=== PATIENT | male | born 1975 | race Caucasian/White ===

== ENCOUNTER 2017-10-27 11:55 | Emergency (ER) | payer MEDICAID ==
--- NOTE | 2017-10-27 13:44 | EDM.PDOC ---
ED HPI GENERAL MEDICAL PROBLEM - General Chief Complaint: Respiratory Problem Stated Complaint: SINUS INFECTION INTO CHEST Time Seen by Provider: 10/27/17 13:25 Source of Information: Reports: Patient History Limitations: Reports: No Limitations - History of Present Illness INITIAL COMMENTS - FREE TEXT/NARRATIVE: 42-year-old male who has had sinus congestion for the last 3 weeks now has a cough for the past 24 hours. His and daughter had similar symptoms in both "responded to antibiotics". He has no significant fever, no nausea or vomiting. Severity: Mild Associated Symptoms: Reports: Cough. Denies: Fever/Chills Chest Pain Score (Numeric/FACES): 6 - Related Data Allergies Allergy/AdvReac Type Severity Reaction Status Date / Time Sulfa (Sulfonamide Allergy Nausea Verified 01/31/15 19:15 Antibiotics) topiramate [From Topamax] Allergy Blurred Verified 10/27/17 13:09 Vision Home Meds: Home Meds Escitalopram [Lexapro] 20 mg PO DAILY 01/31/15 [History] traZODone 50 mg PO BEDTIME 01/31/15 [History] ALPRAZolam [Xanax] 1 tab PO TID PRN 10/27/17 [History] Amitriptyline [Elavil] 10/27/17 [History] Amitriptyline [Elavil] 1 tab PO DAILY 10/27/17 [History] Diclofenac Sodium [Voltaren] 1 tab PO DAILY 10/27/17 [History] Ferrous Sulfate [Ferrous Sulfate] 1 tab PO DAILY 10/27/17 [History] Lisinopril/Hydrochlorothiazide [Lisinopril-Hctz 20-12.5 mg Tab] 1.5 tab PO DAILY 10/27/17 [History] Methocarbamol [Methocarbamol] 1 tab PO BID 10/27/17 [History] Nabumetone [Relafen] 1 tab PO BID 10/27/17 [History] Simvastatin [Zocor] 1 tab PO DAILY 10/27/17 [History] buPROPion HCl [buPROPion HCl ER] 1 tab PO DAILY 10/27/17 [History] Past Medical History Cardiovascular History: Reports: High Cholesterol, Hypertension Respiratory History: Reports: Sleep Apnea - Past Surgical History GI Surgical History: Reports: Bariatric Procedure Musculoskeletal Surgical History: Reports: Hip Replacement Social & Family History - Tobacco Use Smoking Status *Q: Never Smoker Second Hand Smoke Exposure: No - Alcohol Use Days Per Week of Alcohol Use: 0 - Recreational Drug Use Recreational Drug Use: No ED ROS GENERAL - Review of Systems Review Of Systems: See Below Constitutional: Reports: Malaise. Denies: Fever, Chills HEENT: Reports: Sinus Problem (Persistent nasal congestion for the past 2-3 weeks) Respiratory: Reports: Cough. Denies: Wheezing, Sputum GI/Abdominal: Denies: Abdominal Pain, Nausea, Vomiting Skin: Denies: Rash Neurological: Denies: Headache ED EXAM, GENERAL - Physical Exam Exam: See Below Exam Limited By: No Limitations General Appearance: Alert, No Apparent Distress Ears: Normal TMs Throat/Mouth: Normal Inspection Respiratory/Chest: No Respiratory Distress, Lungs Clear, Other (Patient has a very persistent cough but no abnormal lung sounds) Course - Vital Signs Last Recorded V/S: Last Vital Signs Temp 97.7 F 10/27/17 13:09 Pulse 94 10/27/17 13:09 Resp 18 10/27/17 13:09 BP 158/80 H 10/27/17 13:09 Pulse Ox 97 10/27/17 13:09 - Re-Assessments/Exams Free Text/Narrative Re-Assessment/Exam: 10/27/17 13:42 Tried to convince the patient to continue with conservative therapy, however he was convinced that because his family improved with antibiotics he needs his course of antibiotics. He has had sinus symptoms for 3 weeks which could qualify for a course of antibiotic therapy, but I tried to impress upon the patient that his pulmonary symptoms may have to improve on their own. He will return if worsening. Departure - Departure Time of Disposition: 14:10 Disposition: Home, Self-Care 01 Condition: Good Clinical Impression: Bronchitis Sinusitis, acute Qualifiers: Sinusitis location: maxillary Recurrence: non-recurrent Qualified Code(s): J01.00 - Acute maxillary sinusitis, unspecified - Discharge Information Instructions: Acute Bronchitis, [id number] Referrals: PCP,None [Primary Care Provider] - Forms: ED Department Discharge Care Plan Goals: Take antibiotic as prescribed, rest and fluids are important. Return if worsening or concerns.
== END 2017-10-27 14:10 | disposition home or self-care (01) ==
LOC: JP.ED 11:55
DX: J40 Bronchitis, not specified as acute or chronic (principal); J01.00 Acute maxillary sinusitis, unspecified; E78.00 Pure hypercholesterolemia, unspecified; I10 Essential (primary) hypertension; Z79.899 Other long term (current) drug therapy
CPT/HCPCS: 99283

== ENCOUNTER 2018-02-09 12:23 | Emergency (ER) | payer MEDICAID ==
--- NOTE | 2018-02-09 12:58 | EDM.PDOC ---
ED HPI GENERAL MEDICAL PROBLEM - General Chief Complaint: ENT Problem Stated Complaint: PAIN LT SIDE HEAD Time Seen by Provider: 02/09/18 12:40 Source of Information: Reports: Patient History Limitations: Reports: No Limitations - History of Present Illness INITIAL COMMENTS - FREE TEXT/NARRATIVE: 43 yo male with left ear pain and nasal congestion. No fever or purulent discharge. No cough. Onset Date: 02/07/18 Duration: Day(s):, Constant Location: Reports: Head Quality: Reports: Ache Severity: Mild Improves with: Reports: None Worsens with: Reports: None Context: Reports: Other (unknown) Associated Symptoms: Denies: Cough, Fever/Chills, Rash, Shortness of Breath Treatments CARE ANALYST: Reports: Other (see below) (OTC decongestant) - Related Data Allergies Allergy/AdvReac Type Severity Reaction Status Date / Time Sulfa (Sulfonamide Allergy Nausea Verified 02/09/18 12:31 Antibiotics) topiramate [From Topamax] Allergy Blurred Verified 02/09/18 12:31 Vision Home Meds: Home Meds Escitalopram [Lexapro] 20 mg PO DAILY 01/31/15 [History] Amitriptyline [Elavil] 3 tab PO DAILY 10/27/17 [History] Diclofenac Sodium [Voltaren] 1 tab PO DAILY 10/27/17 [History] Ferrous Sulfate [Ferrous Sulfate] 1 tab PO DAILY 10/27/17 [History] Lisinopril/Hydrochlorothiazide [Lisinopril-Hctz 20-12.5 mg Tab] 1.5 tab PO DAILY 10/27/17 [History] Simvastatin [Zocor] 1 tab PO DAILY 10/27/17 [History] buPROPion HCl [buPROPion HCl ER] 1 tab PO DAILY 10/27/17 [History] Past Medical History Cardiovascular History: Reports: High Cholesterol, Hypertension Respiratory History: Reports: Sleep Apnea - Past Surgical History GI Surgical History: Reports: Bariatric Procedure Musculoskeletal Surgical History: Reports: Hip Replacement Social & Family History - Tobacco Use Smoking Status *Q: Never Smoker Second Hand Smoke Exposure: No - Alcohol Use Days Per Week of Alcohol Use: 0 - Recreational Drug Use Recreational Drug Use: No ED ROS ENT - Review of Systems Review Of Systems: See Below Constitutional: Reports: No Symptoms HEENT: Reports: Ear Pain (left), Other (nasal congestion) Respiratory: Reports: No Symptoms Cardiovascular: Reports: No Symptoms Skin: Reports: No Symptoms Neurological: Reports: No Symptoms ED EXAM, ENT - Physical Exam Exam: See Below Exam Limited By: No Limitations General Appearance: Alert, WD/WN, No Apparent Distress Eye Exam: Bilateral Eye: Normal Inspection Ears: Normal External Exam, Normal Canal, Hearing Grossly Normal, Normal TMs Nose: No Blood, Clear Rhinorrhea, Other (nasal congestion bilat.) Mouth/Throat: Normal Inspection, Normal Lips, Normal Oropharynx Head: Atraumatic, Normocephalic Neck: Normal Inspection, Supple Respiratory/Chest: No Respiratory Distress, Lungs Clear, Normal Breath Sounds Course - Vital Signs Last Recorded V/S: Last Vital Signs Temp 35.7 C 02/09/18 12:37 Pulse 65 02/09/18 12:37 Resp 14 02/09/18 12:37 BP 117/57 L 02/09/18 12:37 Pulse Ox 97 02/09/18 12:37 Departure - Departure Time of Disposition: 12:57 Disposition: Home, Self-Care 01 Condition: Good Clinical Impression: Nasal congestion Allergic rhinitis Qualifiers: Allergic rhinitis trigger: unspecified Allergic rhinitis seasonality: unspecified seasonality Qualified Code(s): J30.9 - Allergic rhinitis, unspecified - Discharge Information Referrals: Carmel Stevens PA [Primary Care Provider] - Forms: ED Department Discharge Additional Instructions: Use Afrin or Neosynephrine per package instructions for 3-4 days. Take cetirizine 10 mg daily. F/U with your doctor later in the week for recheck.
== END 2018-02-09 13:02 | disposition home or self-care (01) ==
LOC: JP.ED 12:23
DX: J30.9 Allergic rhinitis, unspecified (principal); E78.00 Pure hypercholesterolemia, unspecified; I10 Essential (primary) hypertension; Z88.2 Allergy status to sulfonamides; Z88.8 Allergy status to other drugs, medicaments and biological substances
CPT/HCPCS: 99284

== ENCOUNTER 2018-02-27 02:35 | Inpatient (IN) | payer MEDICAID ==
[2018-02-27] MEDS ORDERED: HYDROmorphone 0.5 MG/0.5 ML Syringe IVPUSH ONE (02:43)
[2018-02-27] MEDS ORDERED: Sodium Chloride 0.9% 1,000 ML IV SCH ×2 (02:45→04:15)
--- NOTE | 2018-02-27 02:49 | EDM.PDOC ---
ED HPI GENERAL MEDICAL PROBLEM - General Chief Complaint: Abdominal Pain Stated Complaint: MEDICAL [facility] Time Seen by Provider: 02/27/18 02:45 Source of Information: Reports: Patient History Limitations: Reports: No Limitations - History of Present Illness INITIAL COMMENTS - FREE TEXT/NARRATIVE: pt developed a very sudden onset of severe abdomanal pain. He notes this to be slightly more on the left than the right. He feels like his abdoman is quite distended. Onset: Today Duration: Hour(s):, Getting Worse, Other (pt did have a loose bm about 9 pm. He thinks he is passing gas. ) Location: Reports: Abdomen Associated Symptoms: Reports: Nausea/Vomiting, Weakness Left Abdomen Pain Score (Numeric/FACES): 7 - Related Data Allergies Allergy/AdvReac Type Severity Reaction Status Date / Time Sulfa (Sulfonamide Allergy Nausea Verified 02/09/18 12:31 Antibiotics) topiramate [From Topamax] Allergy Blurred Verified 02/09/18 12:31 Vision Home Meds: Home Meds Escitalopram [Lexapro] 20 mg PO DAILY 01/31/15 [History] Amitriptyline [Elavil] 3 tab PO DAILY 10/27/17 [History] Ferrous Sulfate 325 mg PO DAILY 10/27/17 [History] Lisinopril/Hydrochlorothiazide [Lisinopril-Hctz 20-12.5 mg Tab] 1.5 tab PO DAILY 10/27/17 [History] Simvastatin [Zocor] 20 mg PO DAILY 10/27/17 [History] Cholecalciferol (Vitamin D3) [Vitamin D3] 5,000 unit PO DAILY 02/27/18 [History] Cyanocobalamin (Vitamin B-12) [Vitamin B-12] 50 mcg PO DAILY 02/27/18 [History] Echinacea 400 mg PO DAILY 02/27/18 [History] Fish Oil/DHA/EPA [Fish Oil 1,200 MG] 1 each PO DAILY 02/27/18 [History] Multivitamin [Super Multivitamin] 1 each PO BID 02/27/18 [History] buPROPion HCl [Wellbutrin Xl] 300 mg PO DAILY 02/27/18 [History] Past Medical History Cardiovascular History: Reports: High Cholesterol, Hypertension Respiratory History: Reports: Sleep Apnea - Past Surgical History GI Surgical History: Reports: Bariatric Procedure Musculoskeletal Surgical History: Reports: Hip Replacement Social & Family History - Tobacco Use Smoking Status *Q: Never Smoker Second Hand Smoke Exposure: No - Alcohol Use Days Per Week of Alcohol Use: 0 - Recreational Drug Use Recreational Drug Use: No ED ROS GENERAL - Review of Systems Review Of Systems: See Below Constitutional: Reports: No Symptoms HEENT: Reports: No Symptoms Respiratory: Reports: No Symptoms Cardiovascular: Reports: No Symptoms Endocrine: Reports: No Symptoms GI/Abdominal: Reports: Abdominal Pain, Other (pt had a loose stool about 9 pm. he has vomited multiple times. ) : Reports: No Symptoms Musculoskeletal: Reports: No Symptoms Skin: Reports: No Symptoms Neurological: Reports: No Symptoms ED EXAM, GI/ABD - Physical Exam Exam: See Below Text/Narrative:: p arrived with severe abdomanal pain. His abdoman is very distended feeling. Exam Limited By: No Limitations General Appearance: Severe Distress, Other ( abdoman is very ditended. ) Ears: Normal TMs Nose: Normal Inspection Throat/Mouth: Normal Inspection Head: Atraumatic Neck: Normal Inspection Respiratory/Chest: No Respiratory Distress Cardiovascular: Regular Rate, Rhythm, Other ( ekg does appear normal. ) GI/Abdominal Exam: Distended, Guarding, Other (pt appears very distended accross his mid abdoman. He is very tender to palpate. ) Rectal (Males) Exam: Deferred Back Exam: Normal Inspection Extremities: Normal Inspection Neurological: Alert, Oriented, Normal Cognition Course - Vital Signs Last Recorded V/S: Last Vital Signs Temp 35.8 C 02/27/18 02:38 Pulse 76 02/27/18 02:38 Resp 16 02/27/18 02:38 BP 111/43 L 02/27/18 02:38 Pulse Ox 97 02/27/18 02:38 - Orders/Labs/Meds Orders: Active Orders 24 hr Category Date Time Status EKG Documentation Completion [RC] ASDIRECTED Care 02/27/18 02:41 Active Abdomen Pelvis w Cont [CT] Stat Exams 02/27/18 02:53 Taken UA W/MICROSCOPIC [URIN] Urgent Lab 02/27/18 02:41 Ordered Ondansetron [Zofran] Med 02/27/18 05:44 Once 4 mg IVPUSH ONETIME ONE Sodium Chloride 0.9% [Normal Saline] 1,000 ml Med 02/27/18 02:45 Active IV ASDIRECTED Sodium Chloride 0.9% [Normal Saline] 1,000 ml Med 02/27/18 04:15 Active IV ASDIRECTED EKG 12 Lead [EK] Routine Ther 02/27/18 02:41 Ordered Medication Orders Sodium Chloride (Normal Saline) 1,000 mls @ 999 mls/hr IV ASDIRECTED KAYLEN Last Admin: 02/27/18 03:14 Dose: 999 mls/hr Sodium Chloride (Normal Saline) 1,000 mls @ 500 mls/hr IV ASDIRECTED KAYLEN Last Admin: 02/27/18 04:34 Dose: 500 mls/hr Labs: Laboratory Tests 02/27/18 02/27/18 02/27/18 Range/Units 02:41 02:41 02:52 WBC 13.4 H (4.5-11.0) K/uL RBC 5.01 (4.30-5.90) M/uL Hgb 14.8 (12.0-15.0) g/dL Hct 43.1 (40.0-54.0) % MCV 86 (80-98) fL MCH 30 (27-31) pg MCHC 34 (32-36) % Plt Count 256 (150-400) K/uL Neut % (Auto) 90 H (36-66) % Lymph % (Auto) 5 L (24-44) % [place] % (Auto) 4 (2-6) % Eos % (Auto) 1 L (2-4) % Baso % (Auto) 0 (0-1) % Sodium 137 L (140-148) mmol/L Potassium 3.9 (3.6-5.2) mmol/L Chloride 103 (100-108) mmol/L Carbon Dioxide 22 (21-32) mmol/L Anion Gap 15.9 H (5.0-14.0) mmol/L BUN 24 H (7-18) mg/dL Creatinine 1.2 (0.8-1.3) mg/dL Est Cr Clr Drug Dosing 84.54 mL/min Estimated GFR (MDRD) > 60 (>60) Glucose 145 H (74-106) mg/dL Calcium 8.5 (8.5-10.1) mg/dL Total Bilirubin 0.5 (0.2-1.0) mg/dL AST 25 (15-37) U/L ALT 43 (12-78) U/L Alkaline Phosphatase 233 H (46-116) U/L C-Reactive Protein 1.25 H (0.0-0.3) mg/dL Total Protein 6.8 (6.4-8.2) g/dL Albumin 3.8 (3.4-5.0) g/dL Globulin 3.0 (2.3-3.5) g/dL Albumin/Globulin Ratio 1.3 (1.2-2.2) Urine Color Yellow Urine Appearance Clear Urine pH 5.0 (4.5-8.0) Ur Specific [place] 1.020 (1.008-1.030) Urine Protein Negative (NEGATIVE) mg/dL Urine Glucose (UA) Normal (NEGATIVE) mg/dL Urine Ketones Negative (NEGATIVE) mg/dL Urine Occult Blood Negative (NEGATIVE) Urine Nitrite Negative (NEGAITVE) Urine Bilirubin Negative (NEGATIVE) Urine Urobilinogen Normal (NORMAL) mg/dL Ur Leukocyte Esterase Negative (NEGATIVE) Urine RBC 0-5 (0-5) Urine WBC 0-5 (0-5) Ur Epithelial Cells Few Amorphous Sediment Few Urine Bacteria Few Urine Mucus Not seen Meds: Medications Generic Name Dose Route Start Last Admin Trade Name Freq PRN Reason Stop Dose Admin Sodium Chloride 1,000 mls @ 999 mls/hr 02/27/18 02:45 02/27/18 03:14 Normal Saline IV 999 mls/hr ASDIRECTED KAYLEN Administration Sodium Chloride 1,000 mls @ 500 mls/hr 02/27/18 04:15 02/27/18 04:34 Normal Saline IV 500 mls/hr ASDIRECTED KAYLEN Administration Discontinued Medications Generic Name Dose Route Start Last Admin Trade Name Freq PRN Reason Stop Dose Admin Hydromorphone HCl 0.5 mg 02/27/18 02:43 02/27/18 03:12 Dilaudid IVPUSH 02/27/18 02:44 0.5 mg ONETIME ONE Administration Sodium Chloride 85 mls @ 4 mls/sec 02/27/18 03:13 02/27/18 03:25 Normal Saline IV 02/27/18 03:14 4 mls/sec ASDIRECTED STA Administration Iopamidol 150 ml 02/27/18 03:13 02/27/18 03:25 Isovue-300 (61%) IV 02/27/18 03:14 150 ml . DIRECTED STA Administration - Re-Assessments/Exams Free Text/Narrative Re-Assessment/Exam: 02/27/18 05:50 pt has a wbc of 13,00. His crp is elevated at 1.25. He had a cat scan of the abdoman which showed a high grade mechanical obstruction with incarcerated bowel . Departure - Departure Time of Disposition: 05:52 Disposition: Admitted As Inpatient 66 Condition: Fair Clinical Impression: Mechanical obstruction of the intestine, H/O gastric bypass - Discharge Information Referrals: PCP,None [Primary Care Provider] - Forms: ED Department Discharge Care Plan Goals: admit to Dr Ruiz. - My Orders Last 24 Hours: My Active Orders 02/27/18 02:41 EKG Documentation Completion [RC] ASDIRECTED UA W/MICROSCOPIC [URIN] Urgent EKG 12 Lead [EK] Routine 02/27/18 02:45 Sodium Chloride 0.9% [Normal Saline] 1,000 ml IV ASDIRECTED 02/27/18 02:53 Abdomen Pelvis w Cont [CT] Stat 02/27/18 04:15 Sodium Chloride 0.9% [Normal Saline] 1,000 ml IV ASDIRECTED 02/27/18 05:44 Ondansetron [Zofran] 4 mg IVPUSH ONETIME ONE - Assessment/Plan Last 24 Hours: My Active Orders 02/27/18 02:41 EKG Documentation Completion [RC] ASDIRECTED UA W/MICROSCOPIC [URIN] Urgent EKG 12 Lead [EK] Routine 02/27/18 02:45 Sodium Chloride 0.9% [Normal Saline] 1,000 ml IV ASDIRECTED 02/27/18 02:53 Abdomen Pelvis w Cont [CT] Stat 02/27/18 04:15 Sodium Chloride 0.9% [Normal Saline] 1,000 ml IV ASDIRECTED 02/27/18 05:44 Ondansetron [Zofran] 4 mg IVPUSH ONETIME ONE
[2018-02-27] MEDS ORDERED: Iopamidol 612 MG/ML 150 ML Bottle IV STA (03:13)
[2018-02-27] MEDS ORDERED: Ondansetron 4 MG/2 ML SDV IVPUSH ONE (05:44)
[2018-02-27] MEDS ORDERED: Dextrose 5%-Lactated Ringers 1,000 ML IV SCH (07:15)
[2018-02-27] MEDS ORDERED: HYDROmorphone 1 MG/ML Syringe IVPUSH ONE (07:22)
[2018-02-27] MEDS ORDERED: Naloxone 0.4 MG/ML SDV IV PRN (07:35)
[2018-02-27] MEDS ORDERED: HYDROmorphone/Normal Saline 15 MG/30 ML PCA IV PRN ×2 (07:35→18:40)
[2018-02-27] MEDS ORDERED: Glycopyrrolate 0.2 MG/ML 5 ML MDV ONE (07:38)
[2018-02-27] MEDS ORDERED: Ondansetron 4 MG/2 ML SDV ONE (07:38)
[2018-02-27] MEDS ORDERED: Propofol 200 MG/20 ML SDV ONE (07:38)
[2018-02-27] MEDS ORDERED: Succinylcholine 200 MG/10 ML MDV ONE (07:38)
[2018-02-27] MEDS ORDERED: Rocuronium 50 MG/5 ML Vial ONE (07:38)
[2018-02-27] MEDS ORDERED: Neostigmine Methylsulfate 1 MG/ML 5 ML Syringe ONE (07:38)
[2018-02-27] MEDS ORDERED: Dexamethasone 4 MG/ML SDV ONE (07:38)
[2018-02-27] MEDS ORDERED: Meropenem 500 MG SDV ONE (09:00)
[2018-02-27] MEDS ORDERED: Ketamine 500 MG/5 ML MDV IV ONE (09:30)
[2018-02-27] MEDS ORDERED: cefOXitin 2 GM in Sodium Chloride 0.9% 50 ML IV ONE (09:30)
[2018-02-27] MEDS ORDERED: Ropivacaine 60 ML, Dexamethasone 8 MG, EPINEPHrine 0.4 MG, Sodium Chloride 0.9% 17.6 ML NERVRT ONE ×4 (09:30)
[2018-02-27] MEDS ORDERED: Lidocaine 2% 100 MG/5 ML Syringe IVPUSH ONE (09:30)
--- NOTE | 2018-02-27 11:14 | CR ---
Low lung volumes. Heart size upper limits of normal. Mild interstitial thickening may relate to low l nicholas volumes only. Correlate for mild pulmonary vascular congestion slight haziness left lung base med ially may represent atelectasis. If symptoms persist recommend 2 view follow-up.
[2018-02-27] MEDS: Lidocaine 0.4%/D5W 2 GM/500 ML BAG IV SCH (13:55)
[2018-02-27] MEDS: Dextrose 5%-Lactated Ringers 1,000 ML IV SCH ×2 (13:56→23:27)
[2018-02-27] MEDS ORDERED: diphenhydrAMINE 50 MG/ML SDV IVPUSH PRN (14:00)
[2018-02-27] MEDS ORDERED: Labetalol 20 MG/4 ML Syringe IVPUSH PRN (14:00)
[2018-02-27] MEDS ORDERED: Scopolamine 1.5 MG Transdermal Patch TOP SCH (14:00)
[2018-02-27] MEDS ORDERED: Metoclopramide 10 MG/2 ML SDV IVPUSH PRN (14:00)
[2018-02-27] MEDS: Gabapentin 300 MG Cap PO SCH ×2 (14:00→20:12)
[2018-02-27] MEDS ORDERED: hydrOXYzine HCl 100 MG/2 ML SDV IM PRN (14:00)
[2018-02-27] MEDS ORDERED: Ondansetron 4 MG/2 ML SDV IVPUSH PRN (14:00)
[2018-02-27] MEDS: Celecoxib 200 MG Cap PO SCH (14:00)
[2018-02-27] MEDS: cefOXitin 2 GM in Sodium Chloride 0.9% 50 ML IV SCH ×2 (15:05→20:11)
[2018-02-27] MEDS: Acetaminophen Soln 650 MG/20.3 ML UD Cup PO SCH ×2 (17:07→23:27)
[2018-02-27] MEDS: Pantoprazole 40 MG Vial IVPUSH SCH (17:07)
[2018-02-27] MEDS: Heparin Sodium 5,000 Units/ML Vial SUBCUT SCH (17:08)
[2018-02-27] MEDS: MVI, Adult with Vitamin K 10 ML, Thiamine 100 MG, Chromium/Copper/Mang/Selen/Zn 1 ML in... IV SCH ×4 (17:09)
[2018-02-27] MEDS ORDERED: Naloxone 0.4 MG/ML SDV IVPUSH PRN (18:40)
[2018-02-27] MEDS: Tamsulosin 0.4 MG Cap.ER PO SCH (20:12)
[2018-02-27] MEDS: AMITRIPTYLINE PO SCH ×2 (20:13)
[2018-02-28] MEDS: Lidocaine 0.4%/D5W 2 GM/500 ML BAG IV SCH (02:45)
[2018-02-28] MEDS: cefOXitin 2 GM in Sodium Chloride 0.9% 50 ML IV SCH ×4 (02:45→20:12)
[2018-02-28] MEDS ORDERED: Iohexol 647 MG/ML 50 ML SDV PO STA (03:48)
[2018-02-28] MEDS: Acetaminophen Soln 650 MG/20.3 ML UD Cup PO SCH ×4 (04:25→21:29)
[2018-02-28] MEDS: Dextrose 5%-Lactated Ringers 1,000 ML IV SCH (05:23)
[2018-02-28] MEDS: Heparin Sodium 5,000 Units/ML Vial SUBCUT SCH ×2 (05:29→17:29)
[2018-02-28] MEDS: Celecoxib 200 MG Cap PO SCH (07:31)
[2018-02-28] MEDS ORDERED: Ondansetron 4 MG Tab.DIS PO PRN (07:32)
[2018-02-28] MEDS ORDERED: Dextrose 5%-Lactated Ringers 1,000 ML IV SCH (07:32)
[2018-02-28] MEDS: Gabapentin 300 MG Cap PO SCH ×3 (08:40→20:12)
[2018-02-28] MEDS: buPROPion 150 MG Tab.ER PO SCH (08:40)
[2018-02-28] MEDS: Escitalopram 20 MG Tab PO SCH (08:41)
[2018-02-28] MEDS: Hydrochlorothiazide 25 MG Tab PO SCH (08:41)
[2018-02-28] MEDS: SCOPOLAMINE PATCH CHECK TOP SCH (08:42)
--- NOTE | 2018-02-28 11:21 | PN ---
DATE OF SERVICE: 02/28/2018 SUBJECTIVE: Manish is postop day 1. Upper GI this morning was normal. He did have an increased amount of pain, and after the [employer] ROOM was hooked up, he felt much better, been up ambulating. Armstrong catheter was discontinued at 4:30 a.m. Oral intake was 2086, output 1925. APRIL drain put out 0. REVIEW OF SYSTEMS: Remainder of review of systems negative for any pertinent positives and negatives. OBJECTIVE: GENERAL: Manish Jamil is a 43-year-old male. He is alert and orientated, lying in bed. VITAL SIGNS: TPR is 96.7, 69, 16. Blood pressure 147/64. HEENT: Negative. NECK: Supple. HEART: Regular rate and rhythm. LUNGS: Clear. ABDOMEN: Dressings dry and intact. APRIL drain intact. EXTREMITIES: SCDs are on, and there is no peripheral edema. ASSESSMENT: Exploratory laparotomy with small bowel resection, tube decompression of the small bowel, repair of incarcerated umbilical hernia, incarcerated recurrent incisional hernia, and excision of abdominal wall lipoma 1 cm for small bowel obstruction associated with incarcerated umbilical hernia, and a segment of the small bowel with hernia, marked distention of the proximal small bowel, incarcerated recurrent incisional hernia, and abdominal wall lipoma. Date of surgery 02/27/2018. Surgeon, Betito Ruiz MD. PLAN: On dressing off, may shower, step-2 without cereal gastric bypass diet. Discontinue [employer] RO[employer] and continuous pulse ox. Dilaudid 2 mg 1 to 2 every 4 hours p.r.n. pain, Zofran ODT 4 mg every 4 hours p.r.n. nausea, saline lock IV if oral intake adequate after turning down D5LR to 100 mL per hour. Good pulmonary toilet. We will evaluate p.r.n. or in a.m. Estela Perez PA-C /[id number]
--- NOTE | 2018-02-28 11:22 | CR ---
Limited upper GI. Contrast within small bowel loops. No dilatation. No gross evidence for contrast le akage.
[2018-02-28] MEDS: HYDROmorphone 2 MG Tab PO PRN ×2 (13:13→20:08)
[2018-02-28] MEDS: Pantoprazole 40 MG Vial IVPUSH SCH (15:27)
[2018-02-28] MEDS: MVI, Adult with Vitamin K 10 ML, Thiamine 100 MG, Chromium/Copper/Mang/Selen/Zn 1 ML in... IV SCH ×4 (15:33)
[2018-02-28] MEDS: Tamsulosin 0.4 MG Cap.ER PO SCH (20:12)
[2018-02-28] MEDS: AMITRIPTYLINE PO SCH ×2 (20:12)
[2018-03-01] MEDS: cefOXitin 2 GM in Sodium Chloride 0.9% 50 ML IV SCH ×2 (02:30→08:42)
[2018-03-01] MEDS: Acetaminophen Soln 650 MG/20.3 ML UD Cup PO SCH ×4 (03:10→21:17)
[2018-03-01] MEDS: Heparin Sodium 5,000 Units/ML Vial SUBCUT SCH ×2 (05:24→17:23)
[2018-03-01] MEDS: Celecoxib 200 MG Cap PO SCH (08:32)
[2018-03-01] MEDS: Hydrochlorothiazide 25 MG Tab PO SCH (08:32)
[2018-03-01] MEDS: Gabapentin 300 MG Cap PO SCH ×3 (08:33→21:17)
[2018-03-01] MEDS: Escitalopram 20 MG Tab PO SCH (08:33)
[2018-03-01] MEDS: SCOPOLAMINE PATCH CHECK TOP SCH (08:34)
[2018-03-01] MEDS: buPROPion 150 MG Tab.ER PO SCH (08:35)
[2018-03-01] MEDS: HYDROmorphone 2 MG Tab PO PRN ×2 (08:36→17:23)
[2018-03-01] MEDS ORDERED: Cyanocobalamin (Vitamin B12) 1,000 MCG/ML SDV IM ONE (09:00)
[2018-03-01] MEDS ORDERED: Magnesium Hydroxide 400 MG/5 ML Susp 30 ML Cup PO ONE (09:00)
[2018-03-01] MEDS ORDERED: Bisacodyl 5 MG Tab PO ONE (10:00)
--- NOTE | 2018-03-01 10:07 | PN ---
DATE OF SERVICE: 03/01/2018 SUBJECTIVE: Manish is postop day #2. He has not had a bowel movement. Pain has been managed. He is taking Dilaudid for breakthrough pain. REVIEW OF SYSTEMS: Remainder of review of systems negative for any pertinent positives or negatives. Temp max of 100.4. OBJECTIVE: GENERAL: Manish Jamil is a pleasant 43-year-old male. VITAL SIGNS: TPR is 100.4, rechecked at 98.9; pulse 88; respirations 18. Blood pressure 108/56. HEENT: Negative. NECK: Supple. HEART: Regular rate and rhythm. LUNGS: Clear. ABDOMEN: Incision looks good. He has a midline APRIL round drain in, which put out 5 mL. He has been eating 100% of a step-2 with no cereal gastric bypass diet. EXTREMITIES: Without peripheral edema. ASSESSMENT: Exploratory laparotomy with small bowel resection, tube decompression of the small bowel, repair of incarcerated umbilical hernia, incarcerated recurrent incisional hernia, and excision of abdominal wall lipoma 1 cm, for small bowel obstruction associated with incarcerated umbilical hernia and a segment of the small bowel with hernia, marked distention of the proximal small bowel, incarcerated recurrent incisional hernia, and abdominal wall lipoma. Date of surgery 02/27/2018. Surgeon, Betito Ruiz M.D. PLAN: 1. Milk of magnesia 30 mL, one time now, followed by Dulcolax 2 tabs 1 hour after milk of magnesia. 2. Discontinue IV Protonix and Protonix 40 mg p.o. daily. 3. Good pulmonary toilet. 4. We will evaluate p.r.n. or in the a.m. 5. Plan discharge in the a.m. Estela Perez PA-C /[id number]
[2018-03-01] MEDS ORDERED: Pantoprazole 40 MG Tab.CR PO SCH (21:00)
[2018-03-01] MEDS: Tamsulosin 0.4 MG Cap.ER PO SCH (21:17)
[2018-03-01] MEDS: AMITRIPTYLINE PO SCH ×2 (21:17)
[2018-03-02] MEDS: Heparin Sodium 5,000 Units/ML Vial SUBCUT SCH (05:23)
[2018-03-02] MEDS: Acetaminophen Soln 650 MG/20.3 ML UD Cup PO SCH ×2 (05:23→09:38)
[2018-03-02] MEDS: HYDROmorphone 2 MG Tab PO PRN ×2 (05:27→11:46)
[2018-03-02] MEDS: Celecoxib 200 MG Cap PO SCH (07:52)
--- NOTE | 2018-03-02 09:12 | DISCH ---
ADMISSION DIAGNOSES: 1. Incarcerated umbilical hernia. 2. Status post Aly-en-Y gastric bypass surgery. 3. Unspecified surgical malabsorption. 4. B12 deficiency. 5. Reactive hypoglycemia secondary to Aly-en-Y gastric bypass surgery. 6. Depression. 7. Hypertension. 8. Morbid obesity, BMI 39.2. 9. Thoracic degenerative joint disease. 10.Venous insufficiency. DISCHARGE DIAGNOSES: Exploratory laparotomy with small bowel resection, tube decompression of the small bowel, repair of incarcerated umbilical hernia, incarcerated recurrent incisional hernia, and excision of abdominal wall lipoma 1 cm, for a small bowel obstruction associated with incarcerated umbilical hernia and a segment of the small bowel with hernia, marked distention of the proximal small bowel, incarcerated recurrent incisional hernia and abdominal wall lipoma. Date of surgery 02/27/2018. Surgeon, Betito Ruiz M.D. HISTORY: Manish Jamil is a 43-year-old male, who presented to the emergency room for severe abdominal pain. After preoperative evaluation, discussion of possible risks and possible complications, he wished to proceed with surgical procedure. HOSPITAL COURSE: Manish had his surgery on 02/27/2018. He had no operative complications. On postop day #1, he was started on a step-2 gastric bypass diet and received dietary instruction. On postop day #2, he was given bowel stimulation, and on postop day #3, he was able to be discharged to home without any complications. His activity was good, vital signs were stable, oral intake was adequate, and he received adequate nutritional instructions. PHYSICAL EXAMINATION: GENERAL: Manish Jamil is a 43-year-old male. Height is 5 feet 10.8 inches, BMI 39.2. VITAL SIGNS: 98.5, 81, 16. Blood pressure 106/58. O2 by pulse oximetry is 91%. HEENT: Negative. NECK: Supple. HEART: Regular rate and rhythm. LUNGS: Clear. ABDOMEN: Violet intact. He has a midline APRIL drain, which has been draining scant amounts. EXTREMITIES: Without peripheral edema. DISPOSITION: Discharged to home. CONDITION: Stable and improving. FOLLOWUP: Follow up with Estela Perez PA-C, on 03/11/2018, at 9:00 a.m. DISCHARGE MEDICATIONS: New home medications: Acetaminophen 650 mg every 6 hours, liquid 1200 mL; Dilaudid 2 to 4 mg q.4 hours p.r.n. pain, #40; Zofran 4 mg p.o. q.4 hours p.r.n. nausea and vomiting, #30; Celebrex 200 mg p.o. daily, #14; and Protonix 40 mg p.o. at bedtime, to take for 14 days as long as he is on the Celebrex. Home medications: Resume Elavil, Lexapro, bupropion, Zocor, lisinopril, and hydrochlorothiazide. He will resume vitamins and supplements after 1st postop appointment. DISCHARGE INSTRUCTIONS: 1. Diet after discharge: Step-2 gastric bypass diet without cereal. Drink 8 to 10 glasses of water a day. 2. Activity: No lifting greater than 10 pounds for 6 weeks. 3. Driving: Do not drive while on pain medication. 4. May shower. 5. Wear abdominal binder with pressure dressing over hernia site for 6 to 8 weeks or longer as tolerated. 6. Wound incision care: Keep operative site clean and dry. 7. Strip, empty, measure, and record APRIL drain 4 times a day. 8. Notify provider if any fever, increased pain, nausea or vomiting. SPECIAL INSTRUCTIONS: Use incentive spirometer 10 times every hour for 1 week. Check blood sugars in the morning before breakfast and when needed, and keep a food journal and bring to clinic appointments along with blood sugar results.
[2018-03-02] MEDS: Gabapentin 300 MG Cap PO SCH (09:33)
[2018-03-02] MEDS: Hydrochlorothiazide 25 MG Tab PO SCH (09:33)
[2018-03-02] MEDS: buPROPion 150 MG Tab.ER PO SCH (09:34)
[2018-03-02] MEDS: Escitalopram 20 MG Tab PO SCH (09:34)
--- NOTE | 2018-03-05 14:58 | OR ---
DATE OF PROCEDURE: 02/27/2018 PREOPERATIVE DIAGNOSIS: Small bowel obstruction. POSTOPERATIVE DIAGNOSES: 1. Small bowel obstruction with fixed stricture at a point of the Aly limb entering jejunojejunostomy. 2. Marked dilation of proximal small bowel. 3. Incarcerated umbilical hernia. 4. Incarcerated recurrent incisional hernia. 5. Extensive intra-abdominal adhesions. OPERATIVE PROCEDURES: Exploratory laparotomy with lysis of extensive adhesions and: 1. Small bowel resection (11928). 2. Enterotomy for tube decompression of proximal small bowel (17127). 3. Repair of incarcerated umbilical hernia (50980). 4. Repair of incarcerated recurrent incisional hernia (11526). 5. Placement of Interceed mesh to displace pelvic and abdominal wall from underlying viscera to limit recurrent adhesion formation (65700). ANESTHESIA: General. ASSISTANTS: Estela Perez PA-C, and ANALIA Sorto. INDICATION FOR PROCEDURE: This 43-year-old is status post Aly-en-Y gastric bypass, presenting with an acute small bowel obstruction. There is marked distention of the biliopancreatic limb, and NG tube was placed preoperatively. Given the degree of distention of the bowel, an open approach would be used. Potential risks of the procedure including bleeding, infection, injury to underlying viscera, possible leaks from various GI tract closures, recurrence of the problems, as well as the possibility of cardiopulmonary, septic, or hemorrhagic complications leading to were discussed, and the patient wishes to proceed. DETAILS OF PROCEDURE: The patient was taken to the operating room and after general endotracheal anesthesia was induced, a Armstrong catheter was inserted. Transversus abdominis plane blocks affecting the upper halves of the abdomen was then placed bilaterally with standard solution under continuous ultrasound guidance. Following this, with the abdomen prepped and draped, a midline incision which extended eventually from just below the xiphoid to the umbilicus, was made and carried down through full thickness abdominal wall. Upon entering the peritoneal cavity, the markedly distended Aly limb was identified. This was dissected up out to the point where it was incarcerated with the umbilicus. A portion of the previously-placed mesh was divided. As the small bowel was reduced from the umbilicus, which was the point of the obstruction, it was noted to have marked edema and stricturing more or less fixed at the point where the small bowel entered the jejunojejunostomy and it was felt this will most likely need to be resected. As one dissected superiorly through the abdominal wall, the patient was also noted to have an incarcerated incisional hernia, this being an old trocar hernia containing preperitoneal fat. This tissue was excised and sent as a separate specimen. To protect the mesh, then meropenem-containing gauze was placed along the edges of the mesh and, at that point, a small enterotomy was made, dividing the distal end of the Aly limb, and a [place] sump tube placed. Large amount of air and fluid was removed from that area, thus decompressing the otherwise markedly distended small bowel and nasogastric tube having been in place. Once this was completed, this opening was then used for subsequent anastomosis. As discussed with the patient preoperatively, due to his somewhat inadequate weight loss, if we needed to resect the small bowel, we will plan to reconstruct the new anastomosis, creating a shorter common limb and a longer biliopancreatic limb, which should help with weight loss as well as metabolic problems in general. The potential risks of that, in the event that we perform this, being more frequent loose bowel movements as well as possible problems with malnutrition requiring some additional vigilance perioperatively, and the small chance of needing a secondary reoperation were all gone over, and the patient wished to proceed. Given this, the Aly limb, at this point, was marked out being at 170 cm. Given this, the ileocecal valve was identified and the small bowel was then marked back 150 cm. At that point, the [id number] enteroenterostomy was accomplished with an internal firing of the Endo-TERRANCE stapler, and the common opening was then closed transversely with the same stapler, angles anastomosed, and mesenteric defect approximated with some 3-0 Vicryl stitch and that area also then reinforced with some fibrin sealant. At this point, no further problems were noted. The hernia sac within the umbilicus was then dissected free from within and some Interceed mesh was then placed across the pelvic and abdominal wall underlying the incision and into the lower abdomen where adhesions had been encountered at the initial exploration. The umbilical hernia was then approximated from within using #2 Vicryl stitch. This stitch was then continued and through the main fascial layer including repair of the incarcerated incisional hernia site. Once the fascial closure was accomplished, a 10-Sinhala round Yury-Alonzo drain was placed through a stab wound inferior to the main incision, and the incision was then closed with 2 layers of 3-0 and 4-0 Vicryl stitch deep and jeannie for the skin. The drain was fixed with 4-0 Vicryl stitch as well. The patient was taken to the recovery room in a satisfactory condition. There were no evident complications. Physician escrow assistant, Estela Perez, played an essential role in assisting in this case, helping to position the patient, retract structures as needed, as well as suturing and stapling when indicated. Her presence improved the patient's safety and decreased the operative time. Betito Ruiz MD /[id number]
== END 2018-03-02 12:50 | disposition home or self-care (01) | DRG 330 ==
LOC: JP.ED 02:35 → JP.SDS 06:00 → JP.2SS 12:15
PROVIDERS: ADMIT Surgery; ATTEND Surgery
PROC: 0DBA0ZX Excision of Jejunum, Open Approach, Diagnostic (ICD-10-PCS; principal; 2018-02-27)
PROC: 0D190ZA Bypass Duodenum to Jejunum, Open Approach (ICD-10-PCS; 2018-02-27)
PROC: 0WBF0ZZ Excision of Abdominal Wall, Open Approach (ICD-10-PCS; 2018-02-27)
PROC: 0D988ZZ Drainage of Small Intestine, Via Natural or Artificial Opening Endoscopic (ICD-10-PCS; 2018-02-27)
PROC: 3E0T3BZ Introduction of Anesthetic Agent into Peripheral Nerves and Plexi, Percutaneous Approach (ICD-10-PCS; 2018-02-27)
DX: K56.699 Other intestinal obstruction unspecified as to partial versus complete obstruction (principal); K42.0 Umbilical hernia with obstruction, without gangrene; K90.9 Intestinal malabsorption, unspecified; K42.9 Umbilical hernia without obstruction or gangrene; K43.2 Incisional hernia without obstruction or gangrene; D17.1 Benign lipomatous neoplasm of skin and subcutaneous tissue of trunk; E78.00 Pure hypercholesterolemia, unspecified; I10 Essential (primary) hypertension; E53.8 Deficiency of other specified B group vitamins; E16.1 Other hypoglycemia; F32.9 Major depressive disorder, single episode, unspecified; E66.01 Morbid (severe) obesity due to excess calories; Z68.39 Body mass index [BMI] 39.0-39.9, adult; M47.9 Spondylosis, unspecified; I87.2 Venous insufficiency (chronic) (peripheral); Z88.8 Allergy status to other drugs, medicaments and biological substances; Z79.899 Other long term (current) drug therapy; Z98.84 Bariatric surgery status
CPT/HCPCS: 36415; 71045; 71045-26; 74177; 74240; 74240-26; 80053; 81001; 85025; 86140; 88302; 88304; 88307; 93005; 94762; 96361; 96365; 96375; 99285-25; A9270-GY; C9113; J0171; J0330; J0694; J1100; J1170; J1644; J2001; J2185; J2405; J2704; J2710; J2795; J3010; J3411; J3420; J7030; J7040; J7042; J7050; Q9967

== ENCOUNTER 2018-12-26 19:38 | Inpatient (IN) | payer SELFPAY ==
[2018-12-26] MEDS ORDERED: Albuterol/Ipratropium 3.0-0.5 MG/3 ML Neb Soln NEB ONE (21:19)
--- NOTE | 2018-12-26 21:23 | EDM.PDOC ---
ED HPI GENERAL MEDICAL PROBLEM - General Chief Complaint: Respiratory Problem Stated Complaint: ILLNESS Time Seen by Provider: 12/26/18 21:14 Source of Information: Reports: Patient, RN Notes Reviewed History Limitations: Reports: No Limitations - History of Present Illness INITIAL COMMENTS - FREE TEXT/NARRATIVE: 43-year-old gentleman presents emergency department today with complaint of shortness of breath and cough, he states is been ill for about a week and half however today he developed a fever today no nausea vomiting no chest pain he does have back pain secondary to coughing, is no sputum production dry hacking cough no problems with bowel movements 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 Pain Score (Numeric/FACES): 7 - Related Data Allergies Allergy/AdvReac Type Severity Reaction Status Date / Time Sulfa (Sulfonamide Allergy Nausea Verified 12/26/18 20:33 Antibiotics) topiramate [From Topamax] AdvReac Blurred Verified 12/26/18 20:33 Vision Home Meds: Home Meds Escitalopram [Lexapro] 20 mg PO DAILY 01/31/15 [History] Amitriptyline [Elavil] 75 mg PO BEDTIME 10/27/17 [History] Ferrous Sulfate 325 mg PO BID 10/27/17 [History] Lisinopril/Hydrochlorothiazide [Lisinopril-Hctz 20-12.5 mg Tab] 1.5 tab PO DAILY 10/27/17 [History] Simvastatin [Zocor] 20 mg PO BEDTIME 10/27/17 [History] Fish Oil/DHA/EPA [Fish Oil 1,200 MG] 1 each PO DAILY 02/27/18 [History] buPROPion HCl [Wellbutrin Xl] 300 mg PO DAILY 02/27/18 [History] Acetaminophen [Tylenol] 650 mg PO Q6H PRN 12/26/18 [History] Past Medical History HEENT History: Reports: Impaired Vision, Otitis Media Cardiovascular History: Reports: High Cholesterol, Hypertension Respiratory History: Reports: Sleep Apnea, Other (See Below) Other Respiratory History: Cpap Gastrointestinal History: Reports: Bowel Obstruction Musculoskeletal History: Reports: Arthritis Psychiatric History: Reports: Anxiety, Depression Endocrine/Metabolic History: Reports: Obesity/BMI 30+ Hematologic History: Reports: Anemia, Iron Deficiency - Infectious Disease History Infectious Disease History: Reports: Chicken Pox - Past Surgical History HEENT Surgical History: Reports: Adenoidectomy, Myringotomy w Tube(s), Tonsillectomy GI Surgical History: Reports: Bariatric Procedure, Hernia Repair/Other, Small Bowel Musculoskeletal Surgical History: Reports: Hip Replacement Social & Family History - Family History Family Medical History: Unobtainable - Tobacco Use Smoking Status *Q: Never Smoker - Caffeine Use Caffeine Use: Reports: None - Recreational Drug Use Recreational Drug Use: No ED ROS GENERAL - Review of Systems Review Of Systems: See Below Constitutional: Reports: Fever, Chills HEENT: Reports: No Symptoms Respiratory: Reports: Shortness of Breath, Cough. Denies: Wheezing, Sputum Cardiovascular: Reports: Dyspnea on Exertion GI/Abdominal: Reports: No Symptoms : Reports: No Symptoms Musculoskeletal: Reports: Back Pain Skin: Reports: No Symptoms Neurological: Reports: No Symptoms ED EXAM, GENERAL - Physical Exam Exam: See Below Free Text/Narrative:: General: Male, not in any distress, alert and oriented x3 HEENT: head is atraumatic normocephalic, eyes pupils equal round reactive to light, sclera clear no conjunctivitis appreciated. Ears tympanic membranes clear and mccoy landmarks and light reflex are present bilaterally canals are clear. Nose no septal deviation, nares are clear, no blood present. Mouth mucosa is moist and pink no erythema or exudate noted in soft palate, tongue is midline uvula is midline, dentition is intact. Neck: Supple no thyromegaly no tracheal deviation. Nodes: Cervical nodes subclavicular nodes nontender no palpable lymphadenopathy noted. Lungs: clear to auscultation bilaterally with symmetrical respirations, no adventitious noise appreciated. CV: Regular rate and rhythm S1 and S2 appreciated no murmurs rubs or gallops noted. Abdomen: Soft, nontender, no palpable masses or organomegaly appreciated, no distention no guarding bowel sounds are present, . Course - Vital Signs Last Recorded V/S: Last Vital Signs Temp 96.6 F 12/27/18 16:00 Pulse 78 12/27/18 16:00 Resp 24 H 12/27/18 16:00 BP 124/57 L 12/27/18 16:00 Pulse Ox 99 12/27/18 16:00 - Orders/Labs/Meds Orders: Active Orders 24 hr Category Date Time Status Chest 2V [CR] Stat Exams 12/26/18 21:19 Taken CULTURE BLOOD [BC] Urgent Lab 12/26/18 22:10 Received CULTURE BLOOD [BC] Urgent Lab 12/26/18 22:23 Received PATIENT RETYPE [BBK] Stat Lab 12/26/18 22:07 Results RED BLOOD CELLS LP [BBK] Stat Lab 12/26/18 22:07 Results TYPE AND SCREEN [BBK] Stat Lab 12/26/18 22:07 Results Blood Culture x2 Reflex Set [OM.PC] Urgent Oth 12/26/18 22:01 Ordered Transfuse Red Blood Cells [COMM] Stat Oth 12/27/18 06:28 Ordered EKG 12 Lead [EK] Stat Ther 12/26/18 22:24 Ordered Medication Orders Acetaminophen (Tylenol) 650 mg PO Q4H PRN PRN Reason: Pain (Mild 1-3)/fever Last Admin: 12/27/18 14:25 Dose: 650 mg Admin: 12/27/18 09:09 Dose: 650 mg Admin: 12/27/18 03:14 Dose: 650 mg Amitriptyline HCl (Elavil) 75 mg PO BEDTIME [facility] Bupropion HCl (Wellbutrin Xl) 300 mg PO DAILY [facility] Last Admin: 12/27/18 08:50 Dose: 300 mg Escitalopram Oxalate (Lexapro) 20 mg PO DAILY [facility] Last Admin: 12/27/18 08:53 Dose: 20 mg Pantoprazole Sodium 80 mg/ (Sodium Chloride) 100 mls @ 10 mls/hr IV .Q10H [facility] Last Admin: 12/27/18 13:00 Dose: 10 mls/hr Infusion: 12/27/18 11:43 Dose: 10 mls/hr Admin: 12/27/18 01:43 Dose: 10 mls/hr Lactated Ringer's (Ringers, Lactated) 1,000 mls @ 125 mls/hr IV ASDIRECTED [facility] Last Admin: 12/27/18 03:54 Dose: 125 mls/hr Levofloxacin/Dextrose 750 mg/ (Premix) 150 mls @ 100 mls/hr IV Q24H [facility] Last Admin: 12/27/18 02:25 Dose: 100 mls/hr Piperacillin/Tazobactam/ (Dextrose 3.375 gm/ Premix) 50 mls @ 100 mls/hr IV Q6H [facility] Last Admin: 12/27/18 16:55 Dose: 100 mls/hr Admin: 12/27/18 10:47 Dose: 100 mls/hr Lactobacillus Rhamnosus (Culturelle) 1 cap PO BID KAYLEN Last Admin: 12/27/18 08:49 Dose: 1 cap Ondansetron HCl (Zofran) 4 mg IV Q4H PRN PRN Reason: Nausea/Vomiting Simvastatin (Zocor) 20 mg PO BEDTIME KAYLEN Sodium Chloride (Saline Flush) 10 ml FLUSH ASDIRECTED PRN PRN Reason: Keep Vein Open Labs: Laboratory Tests 12/26/18 12/26/18 12/26/18 Range/Units 21:19 21:19 21: WBC 3.5 L (4.5-11.0) K/uL RBC 2.10 L (4.30-5.90) M/uL Hgb 6.2 L* D (12.0-15.0) g/dL Hct 21.1 L (40.0-54.0) % MCV 101 H (80-98) fL MCH 30 (27-31) pg MCHC 29 L (32-36) % Plt Count 261 (150-400) K/uL Neut % (Auto) 55 (36-66) % Lymph % (Auto) 23 L (24-44) % Hughes % (Auto) 18 H (2-6) % Eos % (Auto) 3 (2-4) % Baso % (Auto) 1 (0-1) % Sodium 138 L (140-148) mmol/L Potassium 4.3 (3.6-5.2) mmol/L Chloride 100 (100-108) mmol/L Carbon Dioxide 24 (21-32) mmol/L Anion Gap 18.3 H (5.0-14.0) mmol/L BUN 17 (7-18) mg/dL Creatinine 1.1 (0.8-1.3) mg/dL Est Cr Clr Drug Dosing 92.22 mL/min Estimated GFR (MDRD) > 60 (>60) Glucose 91 (74-106) mg/dL Lactic Acid 4.7 H (0.4-2.0) mmol/L Calcium 8.6 (8.5-10.1) mg/dL Total Bilirubin 1.6 H D (0.2-1.0) mg/dL AST 22 (15-37) U/L ALT 32 (12-78) U/L Alkaline Phosphatase 187 H (46-116) U/L Lactate Dehydrogenase (85-227) U/L C-Reactive Protein 12.66 H (0.0-0.3) mg/dL Total Protein 6.3 L (6.4-8.2) g/dL Albumin 3.0 L (3.4-5.0) g/dL Globulin 3.3 (2.3-3.5) g/dL Albumin/Globulin Ratio 0.9 L (1.2-2.2) Urine Color Urine Appearance Urine pH (4.5-8.0) Ur Specific Hoffman (1.008-1.030) Urine Protein (NEGATIVE) mg/dL Urine Glucose (UA) (NEGATIVE) mg/dL Urine Ketones (NEGATIVE) mg/dL Urine Occult Blood (NEGATIVE) Urine Nitrite (NEGAITVE) Urine Bilirubin (NEGATIVE) Urine Urobilinogen (NORMAL) mg/dL Ur Leukocyte Esterase (NEGATIVE) Urine RBC (0-5) Urine WBC (0-5) Ur Epithelial Cells Amorphous Sediment Urine Bacteria Urine Mucus Blood Type Gel Antibody Screen Crossmatch 12/26/18 12/26/18 12/26/18 Range/Units 22:07 22:26 23:41 WBC (4.5-11.0) K/uL RBC (4.30-5.90) M/uL Hgb (12.0-15.0) g/dL Hct (40.0-54.0) % MCV (80-98) fL MCH (27-31) pg MCHC (32-36) % Plt Count (150-400) K/uL Neut % (Auto) (36-66) % Lymph % (Auto) (24-44) % Hughes % (Auto) (2-6) % Eos % (Auto) (2-4) % Baso % (Auto) (0-1) % Sodium (140-148) mmol/L Potassium (3.6-5.2) mmol/L Chloride (100-108) mmol/L Carbon Dioxide (21-32) mmol/L Anion Gap (5.0-14.0) mmol/L BUN (7-18) mg/dL Creatinine (0.8-1.3) mg/dL Est Cr Clr Drug Dosing mL/min Estimated GFR (MDRD) (>60) Glucose (74-106) mg/dL Lactic Acid (0.4-2.0) mmol/L Calcium (8.5-10.1) mg/dL Total Bilirubin (0.2-1.0) mg/dL AST (15-37) U/L ALT (12-78) U/L Alkaline Phosphatase (46-116) U/L Lactate Dehydrogenase 406 H (85-227) U/L C-Reactive Protein (0.0-0.3) mg/dL Total Protein (6.4-8.2) g/dL Albumin (3.4-5.0) g/dL Globulin (2.3-3.5) g/dL Albumin/Globulin Ratio (1.2-2.2) Urine Color Yellow Urine Appearance Clear Urine pH 8.0 (4.5-8.0) Ur Specific Hoffman 1.005 L (1.008-1.030) Urine Protein Negative (NEGATIVE) mg/dL Urine Glucose (UA) Normal (NEGATIVE) mg/dL Urine Ketones Negative (NEGATIVE) mg/dL Urine Occult Blood Negative (NEGATIVE) Urine Nitrite Negative (NEGAITVE) Urine Bilirubin Negative (NEGATIVE) Urine Urobilinogen 1 (NORMAL) mg/dL Ur Leukocyte Esterase Negative (NEGATIVE) Urine RBC 0-5 (0-5) Urine WBC 0-5 (0-5) Ur Epithelial Cells Rare Amorphous Sediment Not seen Urine Bacteria Few Urine Mucus Not seen Blood Type B POSITIVE Gel Antibody Screen Negative Crossmatch See Detail Meds: Medications Generic Name Dose Route Start Last Admin Trade Name Freq PRN Reason Stop Dose Admin Acetaminophen 650 mg 12/27/18 01:46 12/27/18 14:25 Tylenol PO 650 mg Q4H PRN Administration Pain (Mild 1-3)/fever Amitriptyline HCl 75 mg 12/27/18 21:00 Elavil PO BEDTIME KAYLEN Bupropion HCl 300 mg 12/27/18 09:00 12/27/18 08:50 Wellbutrin Xl PO 300 mg DAILY KAYLEN Administration Escitalopram Oxalate 20 mg 12/27/18 09:00 12/27/18 08:53 Lexapro PO 20 mg DAILY KAYLEN Administration Pantoprazole Sodium 80 mg/ 100 mls @ 10 mls/hr 12/27/18 01:00 12/27/18 13:00 Sodium Chloride IV 10 mls/hr .Q10H KAYLEN Administration Lactated Ringer's 1,000 mls @ 125 mls/hr 12/27/18 01:46 12/27/18 03:54 Ringers, Lactated IV 125 mls/hr ASDIRECTED KAYLEN Administration Levofloxacin/Dextrose 750 mg/ 150 mls @ 100 mls/hr 12/27/18 02:00 12/27/18 02 :25 Premix IV 100 mls/hr Q24H KAYLEN Administration Piperacillin/Tazobactam/ 50 mls @ 100 mls/hr 12/27/18 10:00 12/27/18 16:55 Dextrose 3.375 gm/ Premix IV 100 mls/hr Q6H KAYLEN Administration Lactobacillus Rhamnosus 1 cap 12/27/18 09:00 12/27/18 08:49 Culturelle PO 1 cap BID KAYLEN Administration Ondansetron HCl 4 mg 12/27/18 01:46 Zofran IV Q4H PRN Nausea/Vomiting Simvastatin 20 mg 12/27/18 21:00 Zocor PO BEDTIME KAYLEN Sodium Chloride 10 ml 12/27/18 01:46 Saline Flush FLUSH ASDIRECTED PRN Keep Vein Open Discontinued Medications Generic Name Dose Route Start Last Admin Trade Name Freq PRN Reason Stop Dose Admin Albuterol/Ipratropium 3 ml 12/26/18 21:19 12/26/18 22:00 Duoneb 3.0-0.5 Mg/3 Ml NEB 12/26/18 21:20 3 ml ONETIME ONE Administration Piperacillin Sod/Tazobactam 100 mls @ 200 mls/hr 12/26/18 22:15 12/26/18 23: 04 Sod 4.5 gm/ Sodium Chloride IV 200 mls/hr Q6H KAYLEN Administration Lactated Ringer's 1,000 mls @ 999 mls/hr 12/26/18 22:27 12/26/18 23:02 Ringers, Lactated IV 12/26/18 23:27 999 mls/hr BOLUS ONE Administration Pantoprazole Sodium 80 mg/ 100 mls @ 10 mls/hr 12/27/18 00:15 12/27/18 01:22 Sodium Chloride IV 10 mls/hr .Q10H KAYLEN Administration Piperacillin Sod/Tazobactam 100 mls @ 200 mls/hr 12/27/18 05:00 Sod 4.5 gm/ Sodium Chloride IV Q6H KAYLEN Piperacillin Sod/Tazobactam 50 mls @ 100 mls/hr 12/27/18 05:00 12/27/18 04:52 Sod 3.375 gm/ Sodium Chloride IV 100 mls/hr Q6H KAYLEN Administration Lorazepam 1 mg 12/26/18 22:22 12/26/18 22:38 Ativan IVPUSH 12/26/18 22:23 1 mg ONETIME ONE Administration Pantoprazole Sodium 80 mg 12/27/18 00:15 12/27/18 01:04 Protonix Iv IVPUSH 12/27/18 00:16 80 mg ONETIME ONE Administration Sodium Chloride 10 ml 12/26/18 22:08 12/26/18 23:09 Saline Flush FLUSH 10 ml ASDIRECTED PRN Administration Keep Vein Open Departure - Departure Time of Disposition: 17:51 Disposition: Admitted As Inpatient 66 Condition: Fair Clinical Impression: Septicemia, Blood on rectal exam - Discharge Information - My Orders Last 24 Hours: My Active Orders 12/26/18 21:19 Chest 2V [CR] Stat 12/26/18 22:01 Blood Culture x2 Reflex Set [OM.PC] Urgent 12/26/18 22:07 PATIENT RETYPE [BBK] Stat RED BLOOD CELLS LP [BBK] Stat TYPE AND SCREEN [BBK] Stat 12/26/18 22:10 CULTURE BLOOD [BC] Urgent 12/26/18 22:23 CULTURE BLOOD [BC] Urgent 12/26/18 22:24 EKG 12 Lead [EK] Stat - Assessment/Plan Last 24 Hours: My Active Orders 12/26/18 21:19 Chest 2V [CR] Stat 12/26/18 22:01 Blood Culture x2 Reflex Set [OM.PC] Urgent 12/26/18 22:07 PATIENT RETYPE [BBK] Stat RED BLOOD CELLS LP [BBK] Stat TYPE AND SCREEN [BBK] Stat 12/26/18 22:10 CULTURE BLOOD [BC] Urgent 12/26/18 22:23 CULTURE BLOOD [BC] Urgent 12/26/18 22:24 EKG 12 Lead [EK] Stat Plan: Assessment Acuity = acute Site and laterality = concern for early sepsis probable respiratory source Etiology = bacterial cause Manifestations = dyspnea, cough, fever Location of injury = Home Lab values = WBC low at 3.5 consistent leukopenia hemoglobin low at 6.2 consistent with a macro chromic anemia lactic acid elevated at 4.7 consistent lactic acidosis total bilirubin elevated 1.6 consistent with hyperbilirubinemia CRP elevated 12.66 albumin low at 3.0 consistent with hypoalbuminemia chest x- ray shows no acute process LDH is pending Plan Called discussed case hospitalist 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
[2018-12-26] MEDS ORDERED: Sodium Chloride 0.9% 10 ML Syringe FLUSH PRN (22:08)
[2018-12-26] MEDS ORDERED: Piperacillin/Tazobactam 4.5 GM in Sodium Chloride 0.9% 100 ML IV SCH (22:15)
[2018-12-26] MEDS ORDERED: LORazepam 2 MG/ML SDV IVPUSH ONE (22:22)
[2018-12-26] MEDS ORDERED: Lactated Ringers 1,000 ML IV ONE (22:27)
[2018-12-27] MEDS ORDERED: Pantoprazole 40 MG Vial IVPUSH ONE (00:15)
[2018-12-27] MEDS ORDERED: Sodium Chloride 0.9% 100 ML with Pantoprazole 80 MG IV SCH ×2 (00:15)
--- NOTE | 2018-12-27 00:29 | PCM.HP ---
H&P History of Present Illness - General Date of Service: 12/27/18 Admit Problem/Dx: Admission Diagnosis/Problem Admission Diagnosis/Problem Bleeding Source of Information: Patient, Provider, RN Notes Reviewed History Limitations: Reports: No Limitations - History of Present Illness Initial Comments - Free Text/Narative: Mr. Jamil is a 43-year-old gentleman who is admitted through the emergency department with weakness, shortness of breath, cough, and lightheadedness secondary to upper GI bleed with acute blood loss anemia and probable pneumonia. He's not felt well over the past week and has had symptoms of an upper respiratory tract infection with nasal congestion and cough. Also over the past week has noted melenic-appearing stools and has become progressively more weak and lightheaded. Today noted onset of fever of 102 associated with increase in dyspnea. He presented to the emergency department for further evaluation. White blood cell count is actually somewhat low and chest x-ray shows no obvious infiltrate. No other obvious source of infection identified on evaluation, influenza a and B antigens were found to be negative. Labs also showed marked anemia with a hemoglobin of 6.2. middle back pain Pain Score (Numeric/FACES): 7 - Related Data Allergies/Adverse Reactions: Allergies Allergy/AdvReac Type Severity Reaction Status Date / Time Sulfa (Sulfonamide Allergy Nausea Verified 12/26/18 20:33 Antibiotics) topiramate [From Topamax] AdvReac Blurred Verified 12/26/18 20:33 Vision Home Medications: Home Meds Escitalopram [Lexapro] 20 mg PO DAILY 01/31/15 [History] Amitriptyline [Elavil] 75 mg PO BEDTIME 10/27/17 [History] Ferrous Sulfate 325 mg PO BID 10/27/17 [History] Lisinopril/Hydrochlorothiazide [Lisinopril-Hctz 20-12.5 mg Tab] 1.5 tab PO DAILY 10/27/17 [History] Simvastatin [Zocor] 20 mg PO BEDTIME 10/27/17 [History] Fish Oil/DHA/EPA [Fish Oil 1,200 MG] 1 each PO DAILY 02/27/18 [History] buPROPion HCl [Wellbutrin Xl] 300 mg PO DAILY 02/27/18 [History] Acetaminophen [Tylenol] 650 mg PO Q6H PRN 01/25/19 [History] Past Medical History HEENT History: Reports: Impaired Vision, Otitis Media Cardiovascular History: Reports: High Cholesterol, Hypertension Respiratory History: Reports: Sleep Apnea, Other (See Below) Other Respiratory History: Cpap Gastrointestinal History: Reports: Bowel Obstruction Musculoskeletal History: Reports: Arthritis Psychiatric History: Reports: Anxiety, Depression Endocrine/Metabolic History: Reports: Obesity/BMI 30+ Hematologic History: Reports: Anemia, Iron Deficiency - Infectious Disease History Infectious Disease History: Reports: Chicken Pox - Past Surgical History HEENT Surgical History: Reports: Adenoidectomy, Myringotomy w Tube(s), Tonsillectomy GI Surgical History: Reports: Bariatric Procedure, Hernia Repair/Other, Small Bowel Musculoskeletal Surgical History: Reports: Hip Replacement Social & Family History - Family History Family Medical History: Unobtainable - Tobacco Use Smoking Status *Q: Never Smoker - Caffeine Use Caffeine Use: Reports: None - Recreational Drug Use Recreational Drug Use: No H&P Review of Systems - Review of Systems: Review Of Systems: See Below General: Reports: Fever, Chills, Weakness, Fatigue HEENT: Reports: No Symptoms Pulmonary: Reports: Shortness of Breath, Cough, Sputum, Hemoptysis. Denies: Wheezing, Pleuritic Chest Pain Cardiovascular: Reports: Dyspnea on Exertion, Lightheadedness. Denies: Chest Pain, Palpitations, Orthopnea, PND, Edema, Syncope Gastrointestinal: Reports: Black Stool. Denies: Abdominal Pain, Bloody Stool, Diarrhea, Difficulty Swallowing, Distension, Nausea, Vomiting Genitourinary: Reports: No Symptoms Musculoskeletal: Reports: No Symptoms Skin: Reports: No Symptoms Psychiatric: Reports: No Symptoms Neurological: Reports: No Symptoms Hematologic/Lymphatic: Reports: No Symptoms Immunologic: Reports: No Symptoms Exam - Exam Exam: See Below - Vital Signs Vital Signs: Last Vital Signs Temp 100.6 F 12/26/18 23:00 Pulse 106 H 12/26/18 23:00 Resp 10 L 12/26/18 23:00 BP 145/59 H 12/26/18 23:00 Pulse Ox 100 12/26/18 23:00 Weight: 233 lb 0.458 oz - Exam Quality Assessment: DVT Prophylaxis General: Alert, Oriented, Cooperative, Moderate Distress HEENT: Conjunctiva Clear, Hearing Intact, Normal Nasal Septum, Posterior Pharynx Clear, Pupils Equal. No: Mucosa Moist & [place] Neck: Supple, Trachea Midline, +2 Carotid Pulse wo Bruit Lungs: Clear to Auscultation, Normal Respiratory Effort Cardiovascular: Regular Rate, Regular Rhythm, Normal S1, Normal S2 GI/Abdominal Exam: Soft, Non-Tender, No Organomegaly, No Distention Back Exam: Normal Inspection, Full Range of Motion Extremities: Non-Tender, No Pedal Edema Skin: Warm, Dry, Intact Neurological: Cranial Nerves Intact, Strength Equal Bilateral, Normal Speech, Normal Tone, Sensation Intact. No: Focal Deficit Neuro Extensive - Mental Status: Alert, Oriented x3, Normal Mood/Affect, Normal Cognition, Memory Intact - Patient Data Lab Results Last 24 hrs: Laboratory Results - last 24 hr 12/26/18 12/26/18 12/26/18 Range/Units 21:19 21:19 21:19 WBC 3.5 L (4.5-11.0) K/uL RBC 2.10 L (4.30-5.90) M/uL Hgb 6.2 L* D (12.0-15.0) g/dL Hct 21.1 L (40.0-54.0) % MCV 101 H (80-98) fL MCH 30 (27-31) pg MCHC 29 L (32-36) % Plt Count 261 (150-400) K/uL Neut % (Auto) 55 (36-66) % Lymph % (Auto) 23 L (24-44) % [place] % (Auto) 18 H (2-6) % Eos % (Auto) 3 (2-4) % Baso % (Auto) 1 (0-1) % Sodium 138 L (140-148) mmol/L Potassium 4.3 (3.6-5.2) mmol/L Chloride 100 (100-108) mmol/L Carbon Dioxide 24 (21-32) mmol/L Anion Gap 18.3 H (5.0-14.0) mmol/L BUN 17 (7-18) mg/dL Creatinine 1.1 (0.8-1.3) mg/dL Est Cr Clr Drug Dosing 92.22 mL/min Estimated GFR (MDRD) > 60 (>60) Glucose 91 (74-106) mg/dL Lactic Acid 4.7 H (0.4-2.0) mmol/L Calcium 8.6 (8.5-10.1) mg/dL Total Bilirubin 1.6 H D (0.2-1.0) mg/dL AST 22 (15-37) U/L ALT 32 (12-78) U/L Alkaline Phosphatase 187 H (46-116) U/L Lactate Dehydrogenase (85-227) U/L C-Reactive Protein 12.66 H (0.0-0.3) mg/dL Total Protein 6.3 L (6.4-8.2) g/dL Albumin 3.0 L (3.4-5.0) g/dL Globulin 3.3 (2.3-3.5) g/dL Albumin/Globulin Ratio 0.9 L (1.2-2.2) Blood Type Gel Antibody Screen Crossmatch 12/26/18 12/26/18 Range/Units 22:07 22:26 WBC (4.5-11.0) K/uL RBC (4.30-5.90) M/uL Hgb (12.0-15.0) g/dL Hct (40.0-54.0) % MCV (80-98) fL MCH (27-31) pg MCHC (32-36) % Plt Count (150-400) K/uL Neut % (Auto) (36-66) % Lymph % (Auto) (24-44) % [place] % (Auto) (2-6) % Eos % (Auto) (2-4) % Baso % (Auto) (0-1) % Sodium (140-148) mmol/L Potassium (3.6-5.2) mmol/L Chloride (100-108) mmol/L Carbon Dioxide (21-32) mmol/L Anion Gap (5.0-14.0) mmol/L BUN (7-18) mg/dL Creatinine (0.8-1.3) mg/dL Est Cr Clr Drug Dosing mL/min Estimated GFR (MDRD) (>60) Glucose (74-106) mg/dL Lactic Acid (0.4-2.0) mmol/L Calcium (8.5-10.1) mg/dL Total Bilirubin (0.2-1.0) mg/dL AST (15-37) U/L ALT (12-78) U/L Alkaline Phosphatase (46-116) U/L Lactate Dehydrogenase 406 H (85-227) U/L C-Reactive Protein (0.0-0.3) mg/dL Total Protein (6.4-8.2) g/dL Albumin (3.4-5.0) g/dL Globulin (2.3-3.5) g/dL Albumin/Globulin Ratio (1.2-2.2) Blood Type B POSITIVE Gel Antibody Screen Negative Crossmatch See Detail Result Diagrams: 12/26/18 21:19 12/26/18 21:19 Kit Results Last 24 hrs: Microbiology 12/26/18 23:30 Stool Occult Blood (KIT) - Final Stool / Feces 12/26/18 22:01 Influenza Type A Antigen Screen - Final Nasal Aspirate, Unspecified NEGATIVE INFLUENZA A VIRUS AG Influenza Type B Antigen Screen - Final NEGATIVE INFLUENZA B VIRUS AG *Q Meaningful Use (ADM) - VTE *Q VTE Pharmacological Contraindications *Q: Active Hemorrhage - VTE Risk Assess *Q Each Risk Factor Represents 1 Point: Age 41 - 59 years, Obesity ( BMI > 25 kg/m2 ), Serious lung disease including pneumonia Total Score 1 Point Risk Factors: 3 Each Risk Factor Represents 2 Points: None Total Score 2 Point Risk Factors: 0 Each Risk Factor Represents 3 Points: None Total Score 3 Point Risk Factors: 0 Each Risk Factor Represents 5 Points: None Total Score 5 Point Risk Factors: 0 Venous Thromboembolism Risk Factor Score *Q: 3 Problem List Initiated/Reviewed/Updated: Yes Orders Last 24hrs: Active Orders 24 hr Category Date Time Status Patient Status Manage Transfer [TRANSFER] Routine ADT 12/27/18 00:08 Active EKG Documentation Completion [RC] ASDIRECTED Care 12/26/18 22:24 Active Peripheral IV Care [RC] . DIRECTED Care 12/26/18 22:08 Active RT Aerosol Therapy [RC] ASDIRECTED Care 12/26/18 21:20 Active Vital Signs [RC] Q1H Care 12/26/18 21:19 Active Chest 2V [CR] Stat Exams 12/26/18 21:19 Taken CULTURE BLOOD [BC] Urgent Lab 12/26/18 22:10 Received CULTURE BLOOD [BC] Urgent Lab 12/26/18 22:23 Received HGB [HEMOGLOBIN] [HEME] Stat Lab 12/27/18 00:18 Ordered PATIENT RETYPE [BBK] Stat Lab 12/26/18 22:07 Results RED BLOOD CELLS LP [BBK] Stat Lab 12/26/18 22:07 Results TYPE AND SCREEN [BBK] Stat Lab 12/26/18 22:07 Results URINALYSIS W/MICROSCOPIC [UA W/MICROSCOPIC] [URIN] Stat Lab 12/26/18 23:41 Ordered Pantoprazole [ProTONIX IV] Med 12/27/18 00:15 Ordered 80 mg IVPUSH .BOLUS Piperacillin/Tazobactam [Zosyn] 4.5 gm Med 12/26/18 22:15 Active Sodium Chloride 0.9% [Normal Saline] 100 ml IV Q6H Sodium Chloride 0.9% [Normal Saline] 100 ml Med 12/27/18 00:15 Ordered Pantoprazole [ProTONIX IV] 80 mg IV 10 mls/hr Sodium Chloride 0.9% [Saline Flush] Med 12/26/18 22:08 Active 10 ml FLUSH ASDIRECTED PRN Blood Culture x2 Reflex Set [OM.PC] Urgent Oth 12/26/18 22:01 Ordered Peripheral IV Insertion Adult [OM.PC] Urgent Oth 12/26/18 22:08 Ordered Transfuse Red Blood Cells [COMM] Stat Oth 12/26/18 22:06 Ordered Resuscitation Status Routine Resus Stat 12/27/18 00:12 Ordered EKG 12 Lead [EK] Stat Ther 12/26/18 22:24 Ordered Medication Orders Piperacillin Sod/Tazobactam (Sod 4.5 gm/ Sodium Chloride) 100 mls @ 200 mls/hr IV Q6H KAYLEN Last Admin: 12/26/18 23:04 Dose: 200 mls/hr Pantoprazole Sodium 80 mg/ (Sodium Chloride) 100 mls @ 10 mls/hr IV .Q10H KAYLEN Pantoprazole Sodium (Protonix Iv) 80 mg IVPUSH .BOLUS KAYLEN Sodium Chloride (Saline Flush) 10 ml FLUSH ASDIRECTED PRN PRN Reason: Keep Vein Open Last Admin: 12/26/18 23:09 Dose: 10 ml Assessment/Plan Comment:: ASSESSMENT AND PLAN UPPER GI BLEED-history of melenic stool over the past week associated with progressive weakness, shortness of breath, and lightheadedness. On evaluation in emergency department stool was found to be heme-positive and his hemoglobin is 6.2. -Nothing by mouth -Protonix 80 mg IV now -Protonix continuous infusion at 8 mg per hour -Maintain 2 IV sites -Transfuse one unit of red blood cells -Serial hemoglobin levels -Type and cross to hold 2 additional units of red blood cells -Consult Dr. Ruiz for EGD in a.m. ACUTE BLOOD LOSS ANEMIA -Management as above PROBABLE PNEUMONIA-no obvious infiltrate noted on chest x-ray, white blood cell count low. Recent history of viral upper respiratory tract infection, influenza antigens are negative -Repeat chest x-ray in a.m. following hydration -Blood cultures pending -IV Zosyn and levofloxacin pending culture results LACTIC ACIDOSIS-likely secondary to severe anemia with poor tissue perfusion and probable component of dehydration, less likely sepsis -Vigorous IV fluid replacement -Recheck lactic acid level in a.m. MAINTENANCE ISSUES -DVT prophylaxis; SCUDs, hold on anticoagulation because of acute hemorrhage -GI prophylaxis; Protonix as above -[place] catheter; not indicated -Nutrition; not indicated -Nicotine dependence; not required CODE STATUS-FULL CODE ADMISSION STATUS-patient will be admitted to inpatient status, expect at least a 2 night hospital stay for evaluation and management of problems as outlined above. At the time of this admission I do not reasonably expected evaluation and management of this problem will require more than a 96 hour hospital stay. DISPOSITION-anticipate discharge to home after the hospital stay. PRIMARY CARE PROVIDER-Carmel Stevens
[2018-12-27] MEDS: Sodium Chloride 0.9% 100 ML with Pantoprazole 80 MG IV SCH ×6 (01:43→20:55)
[2018-12-27] MEDS ORDERED: Sodium Chloride 0.9% 10 ML Syringe FLUSH PRN (01:46)
[2018-12-27] MEDS ORDERED: Ondansetron 4 MG/2 ML SDV IV PRN (01:46)
[2018-12-27] MEDS: Levofloxacin/Dextrose 5%-Water 750 MG in Premix Bag 1 BAG IV SCH (02:25)
[2018-12-27] MEDS: Acetaminophen 325 MG Tab PO PRN ×4 (03:14→20:56)
[2018-12-27] MEDS: Lactated Ringers 1,000 ML IV SCH ×2 (03:54→19:48)
[2018-12-27] MEDS ORDERED: Piperacillin/Tazobactam 4.5 GM in Sodium Chloride 0.9% 100 ML IV SCH (05:00)
[2018-12-27] MEDS ORDERED: Piperacillin/Tazobactam 3.375 GM in Sodium Chloride 0.9% 50 ML IV SCH (05:00)
[2018-12-27] MEDS: Lactobacillus Rhamnosus GG (Probiotic) Cap PO SCH ×2 (08:49→20:44)
[2018-12-27] MEDS: buPROPion 150 MG Tab.ER PO SCH (08:50)
[2018-12-27] MEDS: Escitalopram 20 MG Tab PO SCH (08:53)
--- NOTE | 2018-12-27 09:46 | PCM.PN ---
- General Info Date of Service: 12/27/18 Subjective Update: Mr. Jamil has been stable since admission, now receiving his third unit of red blood cells. He's had no further melenic stools since admission and reports he does feel modestly improved with less shortness of breath and lightheadedness. He has been seen by Dr. Ruiz this morning and decision made to defer EGD until tomorrow morning. Functional Status: Reports: Urinating - Review of Systems General: Reports: Fever, Weakness, Chills Pulmonary: Reports: Shortness of Breath, Cough. Denies: Sputum, Wheezing Cardiovascular: Reports: Dyspnea on Exertion. Denies: Chest Pain, Palpitations , Orthopnea, PND, Edema Gastrointestinal: Reports: No Symptoms - Patient Data Vitals - Most Recent: Last Vital Signs Temp 99.0 F 12/27/18 08:43 Pulse 96 12/27/18 08:43 Resp 20 12/27/18 08:43 BP 125/63 12/27/18 08:43 Pulse Ox 95 12/27/18 08:43 Weight - Most Recent: 228 lb 4.8 oz I&O - Last 24 Hours: Intake & Output 12/26/18 12/27/18 12/27/18 22:59 06:59 14:59 Intake Total 874 0 Output Total 1500 300 Balance -626 -300 Lab Results Last 24 Hours: Laboratory Results - last 24 hr 12/26/18 12/26/18 12/26/18 Range/Units 21:19 21:19 21:19 WBC 3.5 L (4.5-11.0) K/uL RBC 2.10 L (4.30-5.90) M/uL Hgb 6.2 L* D (12.0-15.0) g/dL Hct 21.1 L (40.0-54.0) % MCV 101 H (80-98) fL MCH 30 (27-31) pg MCHC 29 L (32-36) % Plt Count 261 (150-400) K/uL Neut % (Auto) 55 (36-66) % Lymph % (Auto) 23 L (24-44) % [place] % (Auto) 18 H (2-6) % Eos % (Auto) 3 (2-4) % Baso % (Auto) 1 (0-1) % Sodium 138 L (140-148) mmol/L Potassium 4.3 (3.6-5.2) mmol/L Chloride 100 (100-108) mmol/L Carbon Dioxide 24 (21-32) mmol/L Anion Gap 18.3 H (5.0-14.0) mmol/L BUN 17 (7-18) mg/dL Creatinine 1.1 (0.8-1.3) mg/dL Est Cr Clr Drug Dosing 92.22 mL/min Estimated GFR (MDRD) > 60 (>60) Glucose 91 (74-106) mg/dL Lactic Acid 4.7 H (0.4-2.0) mmol/L Calcium 8.6 (8.5-10.1) mg/dL Magnesium (1.8-2.4) mg/dL Total Bilirubin 1.6 H D (0.2-1.0) mg/dL AST 22 (15-37) U/L ALT 32 (12-78) U/L Alkaline Phosphatase 187 H (46-116) U/L Lactate Dehydrogenase (85-227) U/L C-Reactive Protein 12.66 H (0.0-0.3) mg/dL Total Protein 6.3 L (6.4-8.2) g/dL Albumin 3.0 L (3.4-5.0) g/dL Globulin 3.3 (2.3-3.5) g/dL Albumin/Globulin Ratio 0.9 L (1.2-2.2) Urine Color Urine Appearance Urine pH (4.5-8.0) Ur Specific Drums (1.008-1.030) Urine Protein (NEGATIVE) mg/dL Urine Glucose (UA) (NEGATIVE) mg/dL Urine Ketones (NEGATIVE) mg/dL Urine Occult Blood (NEGATIVE) Urine Nitrite (NEGAITVE) Urine Bilirubin (NEGATIVE) Urine Urobilinogen (NORMAL) mg/dL Ur Leukocyte Esterase (NEGATIVE) Urine RBC (0-5) Urine WBC (0-5) Ur Epithelial Cells Amorphous Sediment Urine Bacteria Urine Mucus Blood Type Gel Antibody Screen Crossmatch 12/26/18 12/26/18 12/26/18 Range/Units 22:07 22:26 23:41 WBC (4.5-11.0) K/uL RBC (4.30-5.90) M/uL Hgb (12.0-15.0) g/dL Hct (40.0-54.0) % MCV (80-98) fL MCH (27-31) pg MCHC (32-36) % Plt Count (150-400) K/uL Neut % (Auto) (36-66) % Lymph % (Auto) (24-44) % [place] % (Auto) (2-6) % Eos % (Auto) (2-4) % Baso % (Auto) (0-1) % Sodium (140-148) mmol/L Potassium (3.6-5.2) mmol/L Chloride (100-108) mmol/L Carbon Dioxide (21-32) mmol/L Anion Gap (5.0-14.0) mmol/L BUN (7-18) mg/dL Creatinine (0.8-1.3) mg/dL Est Cr Clr Drug Dosing mL/min Estimated GFR (MDRD) (>60) Glucose (74-106) mg/dL Lactic Acid (0.4-2.0) mmol/L Calcium (8.5-10.1) mg/dL Magnesium (1.8-2.4) mg/dL Total Bilirubin (0.2-1.0) mg/dL AST (15-37) U/L ALT (12-78) U/L Alkaline Phosphatase (46-116) U/L Lactate Dehydrogenase 406 H (85-227) U/L C-Reactive Protein (0.0-0.3) mg/dL Total Protein (6.4-8.2) g/dL Albumin (3.4-5.0) g/dL Globulin (2.3-3.5) g/dL Albumin/Globulin Ratio (1.2-2.2) Urine Color Yellow Urine Appearance Clear Urine pH 8.0 (4.5-8.0) Ur Specific Drums 1.005 L (1.008-1.030) Urine Protein Negative (NEGATIVE) mg/dL Urine Glucose (UA) Normal (NEGATIVE) mg/dL Urine Ketones Negative (NEGATIVE) mg/dL Urine Occult Blood Negative (NEGATIVE) Urine Nitrite Negative (NEGAITVE) Urine Bilirubin Negative (NEGATIVE) Urine Urobilinogen 1 (NORMAL) mg/dL Ur Leukocyte Esterase Negative (NEGATIVE) Urine RBC 0-5 (0-5) Urine WBC 0-5 (0-5) Ur Epithelial Cells Rare Amorphous Sediment Not seen Urine Bacteria Few Urine Mucus Not seen Blood Type B POSITIVE Gel Antibody Screen Negative Crossmatch See Detail 12/27/18 12/27/18 12/27/18 Range/Units 00:30 06:00 06:00 WBC 3.1 L (4.5-11.0) K/uL RBC 2.38 L (4.30-5.90) M/uL Hgb 5.6 L* 6.9 L* (12.0-15.0) g/dL Hct 22.6 L (40.0-54.0) % MCV 95 (80-98) fL MCH 29 (27-31) pg MCHC 31 L (32-36) % Plt Count 204 (150-400) K/uL Neut % (Auto) 62 (36-66) % Lymph % (Auto) 17 L (24-44) % [place] % (Auto) 20 H (2-6) % Eos % (Auto) 1 L (2-4) % Baso % (Auto) 0 (0-1) % Sodium 140 (140-148) mmol/L Potassium 3.9 (3.6-5.2) mmol/L Chloride 105 (100-108) mmol/L Carbon Dioxide 22 (21-32) mmol/L Anion Gap 13.5 (5.0-14.0) mmol/L BUN 15 (7-18) mg/dL Creatinine 1.2 (0.8-1.3) mg/dL Est Cr Clr Drug Dosing 84.54 mL/min Estimated GFR (MDRD) > 60 (>60) Glucose 95 (74-106) mg/dL Lactic Acid (0.4-2.0) mmol/L Calcium 8.1 L (8.5-10.1) mg/dL Magnesium 1.8 (1.8-2.4) mg/dL Total Bilirubin (0.2-1.0) mg/dL AST (15-37) U/L ALT (12-78) U/L Alkaline Phosphatase (46-116) U/L Lactate Dehydrogenase (85-227) U/L C-Reactive Protein (0.0-0.3) mg/dL Total Protein (6.4-8.2) g/dL Albumin (3.4-5.0) g/dL Globulin (2.3-3.5) g/dL Albumin/Globulin Ratio (1.2-2.2) Urine Color Urine Appearance Urine pH (4.5-8.0) Ur Specific Drums (1.008-1.030) Urine Protein (NEGATIVE) mg/dL Urine Glucose (UA) (NEGATIVE) mg/dL Urine Ketones (NEGATIVE) mg/dL Urine Occult Blood (NEGATIVE) Urine Nitrite (NEGAITVE) Urine Bilirubin (NEGATIVE) Urine Urobilinogen (NORMAL) mg/dL Ur Leukocyte Esterase (NEGATIVE) Urine RBC (0-5) Urine WBC (0-5) Ur Epithelial Cells Amorphous Sediment Urine Bacteria Urine Mucus Blood Type Gel Antibody Screen Crossmatch Kit Results Last 24 Hours: Microbiology 12/26/18 23:30 Stool Occult Blood (KIT) - Final Stool / Feces 12/26/18 22:01 Influenza Type A Antigen Screen - Final Nasal Aspirate, Unspecified NEGATIVE INFLUENZA A VIRUS AG Influenza Type B Antigen Screen - Final NEGATIVE INFLUENZA B VIRUS AG Med Orders - Current: Current Medications Acetaminophen (Tylenol) 650 mg PO Q4H PRN PRN Reason: Pain (Mild 1-3)/fever Last Admin: 12/27/18 09:09 Dose: 650 mg Amitriptyline HCl (Elavil) 75 mg PO BEDTIME [facility] Bupropion HCl (Wellbutrin Xl) 300 mg PO DAILY [facility] Last Admin: 12/27/18 08:50 Dose: 300 mg Escitalopram Oxalate (Lexapro) 20 mg PO DAILY [facility] Last Admin: 12/27/18 08:53 Dose: 20 mg Pantoprazole Sodium 80 mg/ (Sodium Chloride) 100 mls @ 10 mls/hr IV .Q10H [facility] Last Admin: 12/27/18 01:43 Dose: 10 mls/hr Lactated Ringer's (Ringers, Lactated) 1,000 mls @ 125 mls/hr IV ASDIRECTED [facility] Last Admin: 12/27/18 03:54 Dose: 125 mls/hr Levofloxacin/Dextrose 750 mg/ (Premix) 150 mls @ 100 mls/hr IV Q24H [facility] Last Admin: 12/27/18 02:25 Dose: 100 mls/hr Piperacillin/Tazobactam/ (Dextrose 3.375 gm/ Premix) 50 mls @ 100 mls/hr IV Q6H [facility] Lactobacillus Rhamnosus (Culturelle) 1 cap PO BID [facility] Last Admin: 12/27/18 08:49 Dose: 1 cap Ondansetron HCl (Zofran) 4 mg IV Q4H PRN PRN Reason: Nausea/Vomiting Simvastatin (Zocor) 20 mg PO BEDTIME [facility] Sodium Chloride (Saline Flush) 10 ml FLUSH ASDIRECTED PRN PRN Reason: Keep Vein Open Discontinued Medications Albuterol/Ipratropium (Duoneb 3.0-0.5 Mg/3 Ml) 3 ml NEB ONETIME ONE Stop: 12/26/18 21:20 Last Admin: 12/26/18 22:00 Dose: 3 ml Piperacillin Sod/Tazobactam (Sod 4.5 gm/ Sodium Chloride) 100 mls @ 200 mls/hr IV Q6H [facility] Last Admin: 12/26/18 23:04 Dose: 200 mls/hr Lactated Ringer's (Ringers, Lactated) 1,000 mls @ 999 mls/hr IV BOLUS ONE Stop: 12/26/18 23:27 Last Admin: 12/26/18 23:02 Dose: 999 mls/hr Pantoprazole Sodium 80 mg/ (Sodium Chloride) 100 mls @ 10 mls/hr IV .Q10H [facility] Last Admin: 12/27/18 01:22 Dose: 10 mls/hr Piperacillin Sod/Tazobactam (Sod 4.5 gm/ Sodium Chloride) 100 mls @ 200 mls/hr IV Q6H [facility] Piperacillin Sod/Tazobactam (Sod 3.375 gm/ Sodium Chloride) 50 mls @ 100 mls/ hr IV Q6H [facility] Last Admin: 12/27/18 04:52 Dose: 100 mls/hr Lorazepam (Ativan) 1 mg IVPUSH ONETIME ONE Stop: 12/26/18 22:23 Last Admin: 12/26/18 22:38 Dose: 1 mg Pantoprazole Sodium (Protonix Iv) 80 mg IVPUSH ONETIME ONE Stop: 12/27/18 00:16 Last Admin: 12/27/18 01:04 Dose: 80 mg Sodium Chloride (Saline Flush) 10 ml FLUSH ASDIRECTED PRN PRN Reason: Keep Vein Open Last Admin: 12/26/18 23:09 Dose: 10 ml - Exam General: Alert, Oriented, Cooperative, No Acute Distress Lungs: Clear to Auscultation, Normal Respiratory Effort Cardiovascular: Regular Rate, Regular Rhythm, No Murmurs GI/Abdominal Exam: Soft, Non-Tender, No Organomegaly, No Distention Extremities: Non-Tender, No Pedal Edema - Problem List Review Problem List Initiated/Reviewed/Updated: Yes - My Orders Last 24 Hours: My Active Orders 12/27/18 00:12 Resuscitation Status Routine 12/27/18 01:00 Sodium Chloride 0.9% [Normal Saline] 100 ml Pantoprazole [ProTONIX IV] 80 mg IV 10 mls/hr 12/27/18 01:46 Patient Status [ADT] Routine Cardiac Monitoring [RC] Q6H Height and Weight [RC] DAILY Intake and Output [RC] QSHIFT Notify Provider Consults [RC] ASDIRECTED Notify Provider Vital Signs [RC] ASDIRECTED Oxygen Therapy [RC] PRN Peripheral IV Care [RC] . DIRECTED Up With Assistance [RC] ASDIRECTED Up to Chair [RC] QID VTE/DVT Education [RC] Per Unit Routine Consult to Physician [CONS] Routine Acetaminophen [Tylenol] 650 mg PO Q4H PRN Lactated Ringers [Ringers, Lactated] 1,000 ml IV ASDIRECTED Ondansetron [Zofran] 4 mg IV Q4H PRN Sodium Chloride 0.9% [Saline Flush] 10 ml FLUSH ASDIRECTED PRN Peripheral IV Insertion Adult [OM.PC] Routine Sequential Compression Device [OM.PC] Per Unit Routine VTE Pharmacological Contraindications [AST] Per Unit Routine 12/27/18 02:00 Levofloxacin/Dextrose 5%-Water [Levaquin in D5W 750 MG/150 ML] 750 mg Premix Bag 1 bag IV Q24H 12/27/18 06:28 Transfuse Red Blood Cells [COMM] Stat 12/27/18 09:00 Escitalopram [Lexapro] 20 mg PO DAILY Lactobacillus Rhamnosus GG [Culturelle] 1 cap PO BID buPROPion [Wellbutrin XL] 300 mg PO DAILY 12/27/18 09:40 Chest 1V Frontal [CR] Stat 12/27/18 10:00 Piperacillin/Tazobactam/Dext [Zosyn in Dextrose Iso-Osmotic 3.375 GM] 3.375 gm Premix Bag 1 bag IV Q6H 12/27/18 11:00 HGB [HEMOGLOBIN] [HEME] Stat 12/27/18 17:00 HGB [HEMOGLOBIN] [HEME] Stat 12/27/18 21:00 Amitriptyline [Elavil] 75 mg PO BEDTIME Simvastatin [Zocor] 20 mg PO BEDTIME 12/27/18 23:00 HGB [HEMOGLOBIN] [HEME] Stat 12/27/18 Breakfast Nothing per Oral Now Diet [DIET] 12/28/18 05:00 BASIC METABOLIC PANEL,BMP [CHEM] Timed CBC WITH AUTO DIFF [HEME] Timed LACTIC ACID [CHEM] Timed MAGNESIUM [CHEM] Timed - Plan Plan:: ASSESSMENT AND PLAN UPPER GI BLEED-history of melenic stool over the past week associated with progressive weakness, shortness of breath, and lightheadedness. On evaluation in emergency department stool was found to be heme-positive and his hemoglobin is 6.2. Early receiving third unit of red blood cells, feels modestly improved -Nothing by mouth -Protonix 80 mg IV now -Protonix continuous infusion at 8 mg per hour -Maintain 2 IV sites -Transfuse one unit of red blood cells -Serial hemoglobin levels -Type and cross to hold 2 additional units of red blood cells -Surgical follow-up per Dr. Ruiz, MAUDE tomorrow a.m. ACUTE BLOOD LOSS ANEMIA -Management as above PROBABLE PNEUMONIA-no obvious infiltrate noted on chest x-ray, white blood cell count low. Recent history of viral upper respiratory tract infection, influenza antigens are negative. Cough improved and he is less short of breath chest x- ray pending -Blood cultures pending -IV Zosyn and levofloxacin pending culture results LACTIC ACIDOSIS-likely secondary to severe anemia with poor tissue perfusion and probable component of dehydration, less likely sepsis -Vigorous IV fluid replacement -Recheck lactic acid level in a.m. MAINTENANCE ISSUES -DVT prophylaxis; SCUDs, hold on anticoagulation because of acute hemorrhage -GI prophylaxis; Protonix as above -Armstrong catheter; not indicated -Nutrition; not indicated -Nicotine dependence; not required CODE STATUS-FULL CODE ADMISSION STATUS-patient will be admitted to inpatient status, expect at least a 2 night hospital stay for evaluation and management of problems as outlined above. At the time of this admission I do not reasonably expected evaluation and management of this problem will require more than a 96 hour hospital stay. DISPOSITION-anticipate discharge to home after the hospital stay. PRIMARY CARE PROVIDER-Carmel Steevns
[2018-12-27] MEDS: Piperacillin/Tazobactam/Dext 3.375 GM in Premix Bag 1 BAG IV SCH ×3 (10:47→22:13)
[2018-12-27] MEDS: Amitriptyline 25 MG Tab PO SCH (20:45)
[2018-12-27] MEDS: Simvastatin 20 MG Tab PO SCH (20:45)
[2018-12-27] MEDS: Codeine/guaiFENesin 100mg-10 MG/5 ML Syrup 10 ML Cup PO PRN (22:13)
[2018-12-28] MEDS: Acetaminophen 325 MG Tab PO PRN (01:54)
[2018-12-28] MEDS: Codeine/guaiFENesin 100mg-10 MG/5 ML Syrup 10 ML Cup PO PRN ×3 (01:54→20:20)
[2018-12-28] MEDS: Levofloxacin/Dextrose 5%-Water 750 MG in Premix Bag 1 BAG IV SCH (01:55)
[2018-12-28] MEDS: Lactated Ringers 1,000 ML IV SCH (03:32)
[2018-12-28] MEDS: Piperacillin/Tazobactam/Dext 3.375 GM in Premix Bag 1 BAG IV SCH (03:35)
[2018-12-28] MEDS: Sodium Chloride 0.9% 100 ML with Pantoprazole 80 MG IV SCH ×2 (06:37)
[2018-12-28] MEDS ORDERED: fentaNYL 100 MCG/2 ML SDV ONE (07:28)
[2018-12-28] MEDS ORDERED: Propofol 200 MG/20 ML SDV ONE (07:28)
[2018-12-28] MEDS ORDERED: Midazolam 1 MG/ML 2 ML SDV ONE (07:28)
--- NOTE | 2018-12-28 09:44 | PCM.PN ---
- General Info Date of Service: 12/28/18 Subjective Update: Mr. Jamil has been stable since yesterday with no further evidence of active bleeding. EGD performed this morning by Dr. Ruiz did show evidence of a healing gastric ulcer which is likely source of recent blood loss. Other than dry nonproductive cough respiratory status has been stable and he denies significant shortness of breath. Functional Status: Reports: Ambulating, Urinating - Review of Systems General: Denies: Fever, Chills Pulmonary: Reports: Cough. Denies: Shortness of Breath, Pleuritic Chest Pain, Sputum, Hemoptysis, Wheezing Cardiovascular: Reports: Dyspnea on Exertion. Denies: Chest Pain, Palpitations , Orthopnea, PND, Edema, Lightheadedness Gastrointestinal: Denies: Abdominal Pain, Difficulty Swallowing, Hematochezia, Melena, Nausea, Vomiting - Patient Data Vitals - Most Recent: Last Vital Signs Temp 97.1 F 12/28/18 08:30 Pulse 78 12/28/18 08:30 Resp 19 12/28/18 08:30 BP 134/65 12/28/18 08:30 Pulse Ox 93 L 12/28/18 08:30 Weight - Most Recent: 228 lb 4.8 oz I&O - Last 24 Hours: Intake & Output 12/27/18 12/28/18 12/28/18 22:59 06:59 14:59 Intake Total 410 1808 Output Total 500 950 400 Balance -90 858 -400 Lab Results Last 24 Hours: Laboratory Results - last 24 hr 12/26/18 12/27/18 12/27/18 Range/Units 22:07 11:00 11:07 WBC (4.5-11.0) K/uL RBC (4.30-5.90) M/uL Hgb 7.7 L (12.0-15.0) g/dL Hct (40.0-54.0) % MCV (80-98) fL MCH (27-31) pg MCHC (32-36) % Plt Count (150-400) K/uL Neut % (Auto) (36-66) % Lymph % (Auto) (24-44) % [place] % (Auto) (2-6) % Eos % (Auto) (2-4) % Baso % (Auto) (0-1) % Sodium (140-148) mmol/L Potassium (3.6-5.2) mmol/L Chloride (100-108) mmol/L Carbon Dioxide (21-32) mmol/L Anion Gap (5.0-14.0) mmol/L BUN (7-18) mg/dL Creatinine (0.8-1.3) mg/dL Est Cr Clr Drug Dosing mL/min Estimated GFR (MDRD) (>60) Glucose (74-106) mg/dL Lactic Acid (0.4-2.0) mmol/L Calcium (8.5-10.1) mg/dL Phosphorus (2.5-4.9) mg/dL Magnesium (1.8-2.4) mg/dL Ferritin 376 (8-388) ng/ml Vitamin B12 1372 H (193-986) pg/ml Folate (8.6-58.9) ng/ml Blood Type B POSITIVE Gel Antibody Screen Negative Crossmatch See Detail 12/27/18 12/27/18 12/27/18 Range/Units 11:07 11:07 11:08 WBC (4.5-11.0) K/uL RBC (4.30-5.90) M/uL Hgb (12.0-15.0) g/dL Hct (40.0-54.0) % MCV (80-98) fL MCH (27-31) pg MCHC (32-36) % Plt Count (150-400) K/uL Neut % (Auto) (36-66) % Lymph % (Auto) (24-44) % [place] % (Auto) (2-6) % Eos % (Auto) (2-4) % Baso % (Auto) (0-1) % Sodium (140-148) mmol/L Potassium (3.6-5.2) mmol/L Chloride (100-108) mmol/L Carbon Dioxide (21-32) mmol/L Anion Gap (5.0-14.0) mmol/L BUN (7-18) mg/dL Creatinine (0.8-1.3) mg/dL Est Cr Clr Drug Dosing mL/min Estimated GFR (MDRD) (>60) Glucose (74-106) mg/dL Lactic Acid 3.0 H (0.4-2.0) mmol/L Calcium (8.5-10.1) mg/dL Phosphorus 4.7 (2.5-4.9) mg/dL Magnesium 1.8 (1.8-2.4) mg/dL Ferritin (8-388) ng/ml Vitamin B12 (193-986) pg/ml Folate 21.7 (8.6-58.9) ng/ml Blood Type Gel Antibody Screen Crossmatch 12/27/18 12/27/18 12/27/18 Range/Units 17:32 17:32 23:00 WBC (4.5-11.0) K/uL RBC (4.30-5.90) M/uL Hgb 8.3 L 8.8 L (12.0-15.0) g/dL Hct (40.0-54.0) % MCV (80-98) fL MCH (27-31) pg MCHC (32-36) % Plt Count (150-400) K/uL Neut % (Auto) (36-66) % Lymph % (Auto) (24-44) % [place] % (Auto) (2-6) % Eos % (Auto) (2-4) % Baso % (Auto) (0-1) % Sodium (140-148) mmol/L Potassium (3.6-5.2) mmol/L Chloride (100-108) mmol/L Carbon Dioxide (21-32) mmol/L Anion Gap (5.0-14.0) mmol/L BUN (7-18) mg/dL Creatinine (0.8-1.3) mg/dL Est Cr Clr Drug Dosing mL/min Estimated GFR (MDRD) (>60) Glucose (74-106) mg/dL Lactic Acid 3.0 H (0.4-2.0) mmol/L Calcium (8.5-10.1) mg/dL Phosphorus (2.5-4.9) mg/dL Magnesium (1.8-2.4) mg/dL Ferritin (8-388) ng/ml Vitamin B12 (193-986) pg/ml Folate (8.6-58.9) ng/ml Blood Type Gel Antibody Screen Crossmatch 12/28/18 12/28/18 12/28/18 Range/Units 05:35 05:35 05:35 WBC 3.4 L (4.5-11.0) K/uL RBC 2.89 L (4.30-5.90) M/uL Hgb 8.5 L (12.0-15.0) g/dL Hct 27.2 L (40.0-54.0) % MCV 94 (80-98) fL MCH 29 (27-31) pg MCHC 31 L (32-36) % Plt Count 180 (150-400) K/uL Neut % (Auto) 53 (36-66) % Lymph % (Auto) 23 L (24-44) % [place] % (Auto) 15 H (2-6) % Eos % (Auto) 9 H (2-4) % Baso % (Auto) 1 (0-1) % Sodium 142 (140-148) mmol/L Potassium 3.9 (3.6-5.2) mmol/L Chloride 108 (100-108) mmol/L Carbon Dioxide 25 (21-32) mmol/L Anion Gap 9.1 (5.0-14.0) mmol/L BUN 9 (7-18) mg/dL Creatinine 1.0 (0.8-1.3) mg/dL Est Cr Clr Drug Dosing 101.45 mL/min Estimated GFR (MDRD) > 60 (>60) Glucose 84 (74-106) mg/dL Lactic Acid 2.5 H (0.4-2.0) mmol/L Calcium 8.4 L (8.5-10.1) mg/dL Phosphorus (2.5-4.9) mg/dL Magnesium 1.8 (1.8-2.4) mg/dL Ferritin (8-388) ng/ml Vitamin B12 (193-986) pg/ml Folate (8.6-58.9) ng/ml Blood Type Gel Antibody Screen Crossmatch Kit Results Last 24 Hours: Microbiology 12/26/18 22:23 Aerobic Blood Culture - Preliminary Blood - Arm, Right NO GROWTH AFTER 1 DAY Anaerobic Blood Culture - Preliminary NO GROWTH AFTER 1 DAY 12/26/18 22:10 Aerobic Blood Culture - Preliminary Blood - Arm, Right NO GROWTH AFTER 1 DAY Anaerobic Blood Culture - Preliminary NO GROWTH AFTER 1 DAY Med Orders - Current: Current Medications Acetaminophen (Tylenol) 650 mg PO Q4H PRN PRN Reason: Pain (Mild 1-3)/fever Last Admin: 12/28/18 01:54 Dose: 650 mg Amitriptyline HCl (Elavil) 75 mg PO BEDTIME [facility] Last Admin: 12/27/18 20:45 Dose: 75 mg Bupropion HCl (Wellbutrin Xl) 300 mg PO DAILY [facility] Last Admin: 12/27/18 08:50 Dose: 300 mg Escitalopram Oxalate (Lexapro) 20 mg PO DAILY [facility] Last Admin: 12/27/18 08:53 Dose: 20 mg Guaifenesin/Codeine Phosphate (Robitussin Ac) 10 ml PO Q4H PRN PRN Reason: Cough Last Admin: 12/28/18 01:54 Dose: 10 ml Lactobacillus Rhamnosus (Culturelle) 1 cap PO BID [facility] Last Admin: 12/27/18 20:44 Dose: 1 cap Levofloxacin (Levaquin) 750 mg PO Q24H [facility] Ondansetron HCl (Zofran) 4 mg IV Q4H PRN PRN Reason: Nausea/Vomiting Pantoprazole Sodium (Protonix) 40 mg PO BIDAC [facility] Simvastatin (Zocor) 20 mg PO BEDTIME [facility] Last Admin: 12/27/18 20:45 Dose: 20 mg Sodium Chloride (Saline Flush) 10 ml FLUSH ASDIRECTED PRN PRN Reason: Keep Vein Open Discontinued Medications Albuterol/Ipratropium (Duoneb 3.0-0.5 Mg/3 Ml) 3 ml NEB ONETIME ONE Stop: 12/26/18 21:20 Last Admin: 12/26/18 22:00 Dose: 3 ml Fentanyl (Sublimaze) Confirm Administered Dose 100 mcg .ROUTE .STK-MED ONE Stop: 12/28/18 07:29 Piperacillin Sod/Tazobactam (Sod 4.5 gm/ Sodium Chloride) 100 mls @ 200 mls/hr IV Q6H [facility] Last Admin: 12/26/18 23:04 Dose: 200 mls/hr Lactated Ringer's (Ringers, Lactated) 1,000 mls @ 999 mls/hr IV BOLUS ONE Stop: 12/26/18 23:27 Last Admin: 12/26/18 23:02 Dose: 999 mls/hr Pantoprazole Sodium 80 mg/ (Sodium Chloride) 100 mls @ 10 mls/hr IV .Q10H [facility] Last Admin: 12/27/18 01:22 Dose: 10 mls/hr Pantoprazole Sodium 80 mg/ (Sodium Chloride) 100 mls @ 10 mls/hr IV .Q10H [facility] Last Admin: 12/28/18 06:37 Dose: 10 mls/hr Piperacillin Sod/Tazobactam (Sod 4.5 gm/ Sodium Chloride) 100 mls @ 200 mls/hr IV Q6H [facility] Lactated Ringer's (Ringers, Lactated) 1,000 mls @ 125 mls/hr IV ASDIRECTED [facility] Last Admin: 12/28/18 03:32 Dose: 125 mls/hr Levofloxacin/Dextrose 750 mg/ (Premix) 150 mls @ 100 mls/hr IV Q24H [facility] Last Admin: 12/28/18 01:55 Dose: 100 mls/hr Piperacillin Sod/Tazobactam (Sod 3.375 gm/ Sodium Chloride) 50 mls @ 100 mls/ hr IV Q6H [facility] Last Admin: 12/27/18 04:52 Dose: 100 mls/hr Piperacillin/Tazobactam/ (Dextrose 3.375 gm/ Premix) 50 mls @ 100 mls/hr IV Q6H [facility] Last Admin: 12/28/18 03:35 Dose: 100 mls/hr Lorazepam (Ativan) 1 mg IVPUSH ONETIME ONE Stop: 12/26/18 22:23 Last Admin: 12/26/18 22:38 Dose: 1 mg Midazolam HCl (Versed 1 Mg/Ml) Confirm Administered Dose 2 mg .ROUTE .STK-MED ONE Stop: 12/28/18 07:29 Pantoprazole Sodium (Protonix Iv) 80 mg IVPUSH ONETIME ONE Stop: 12/27/18 00:16 Last Admin: 12/27/18 01:04 Dose: 80 mg Propofol (Diprivan 20 Ml) Confirm Administered Dose 200 mg .ROUTE .STK-MED ONE Stop: 12/28/18 07:29 Sodium Chloride (Saline Flush) 10 ml FLUSH ASDIRECTED PRN PRN Reason: Keep Vein Open Last Admin: 12/26/18 23:09 Dose: 10 ml - Exam General: Alert, Oriented, Cooperative, No Acute Distress Lungs: Clear to Auscultation, Normal Respiratory Effort Cardiovascular: Regular Rate, Regular Rhythm, No Murmurs GI/Abdominal Exam: Soft, Non-Tender, No Organomegaly, No Distention Extremities: Non-Tender, No Pedal Edema - Problem List Review Problem List Initiated/Reviewed/Updated: Yes - My Orders Last 24 Hours: My Active Orders 12/27/18 09:00 Escitalopram [Lexapro] 20 mg PO DAILY Lactobacillus Rhamnosus GG [Culturelle] 1 cap PO BID buPROPion [Wellbutrin XL] 300 mg PO DAILY 12/27/18 09:40 Chest 1V Frontal [CR] Stat 12/27/18 11:55 H. PYLORI BREATH TEST Routine 12/27/18 21:00 Amitriptyline [Elavil] 75 mg PO BEDTIME Simvastatin [Zocor] 20 mg PO BEDTIME 12/27/18 22:01 Codeine/guaiFENesin [Robitussin AC] 10 ml PO Q4H PRN 12/28/18 07:47 AJ TEST [RM] Routine 12/28/18 09:08 Transfuse Red Blood Cells [COMM] Stat 12/28/18 09:35 Convert IV to Saline Lock [OM.PC] Routine 12/28/18 09:45 levoFLOXacin [Levaquin] 750 mg PO Q24H 12/28/18 16:30 Pantoprazole [ProTONIX] 40 mg PO BIDAC 12/28/18 17:00 HGB [HEMOGLOBIN] [HEME] Stat 12/29/18 05:11 HGB [HEMOGLOBIN] [HEME] AM - Plan Plan:: ASSESSMENT AND PLAN UPPER GI BLEED-history of melenic stool over the past week associated with progressive weakness, shortness of breath, and lightheadedness. Stable over the last 24 hours with no further evidence of active bleeding. EGD performed today by Dr. Ruiz showed evidence of a healing gastric ulcer which is felt to be the likely source of recent bleeding. -Gastric bypass diet is ordered by Dr. Ruiz -Protonix 40 mg by mouth twice a day -Maintain 2 IV sites -Serial hemoglobin levels -Surgical follow-up per Dr. Ruiz ACUTE BLOOD LOSS ANEMIA -Management as above LEFT LUNG PNEUMONIA-chest x-ray obtained yesterday following hydration shows evidence of a left lung infiltrate. Recent history of viral upper respiratory tract infection. -Blood cultures pending -Convert to levofloxacin 750 mg by mouth daily LACTIC ACIDOSIS-significantly improved from admission -Recheck in a.m. MAINTENANCE ISSUES -DVT prophylaxis; SCUDs, hold on anticoagulation because of acute hemorrhage -GI prophylaxis; Protonix as above -Armstrong catheter; not indicated -Nutrition; gastric bypass diet -Nicotine dependence; not required CODE STATUS-FULL CODE ADMISSION STATUS-patient will be admitted to inpatient status, expect at least a 2 night hospital stay for evaluation and management of problems as outlined above. At the time of this admission I do not reasonably expected evaluation and management of this problem will require more than a 96 hour hospital stay. DISPOSITION-anticipate discharge to home after the hospital stay. PRIMARY CARE PROVIDER-Carmel Stevens
[2018-12-28] MEDS: Lactobacillus Rhamnosus GG (Probiotic) Cap PO SCH ×2 (10:00→20:15)
[2018-12-28] MEDS: buPROPion 150 MG Tab.ER PO SCH (10:00)
[2018-12-28] MEDS: Escitalopram 20 MG Tab PO SCH (10:02)
[2018-12-28] MEDS: Pantoprazole 40 MG Tab.CR PO SCH (15:42)
[2018-12-28] MEDS: Amitriptyline 25 MG Tab PO SCH (20:15)
[2018-12-28] MEDS: Simvastatin 20 MG Tab PO SCH (20:15)
[2018-12-28] MEDS ORDERED: Levofloxacin 250 MG Tab PO SCH (21:00)
[2018-12-29] MEDS: Pantoprazole 40 MG Tab.CR PO SCH (07:51)
--- NOTE | 2018-12-29 08:50 | CR ---
CHEST: Portable CLINICAL HISTORY:Infiltrate COMPARISON:12/26/2018 FINDINGS: There is a patchy infiltrate in the left infrahilar region. Heart size and pulmonary vascularity are normal. There are no effusions Impression: Patchy left infrahilar density is suspect for left lower lobe pneumonic infiltrate. Follow-up recommended until clear
[2018-12-29] MEDS: Lactobacillus Rhamnosus GG (Probiotic) Cap PO SCH (09:02)
[2018-12-29] MEDS: Escitalopram 20 MG Tab PO SCH (09:02)
[2018-12-29] MEDS: buPROPion 150 MG Tab.ER PO SCH (09:02)
--- NOTE | 2018-12-29 10:54 | DISCH ---
ADMISSION DIAGNOSES: 1. Upper gastrointestinal bleed. 2. Acute blood loss anemia, hemoglobin 6.2. 3. Probable pneumonia. 4. Lactic acidosis. PROCEDURE: Upper endoscopy on 12/28/2018, Betito Ruiz MD. POSTOPERATIVE DIAGNOSES: 1. Gastrointestinal bleed, marginal ulcer. 2. Gastrointestinal bleed requiring 6 units of packed red blood cells. Discharge hemoglobin of 9.8. 3. Pneumonia. HISTORY: Manish Jamil is a 43-year-old male who presented to the emergency room with weakness, shortness of breath, cough, lightheadedness, hemoglobin of 6.2. He also had an upper respiratory tract infection, congestion and cough. After he was evaluated in the emergency department, he was admitted to the hospital on 12/27/2018. He had an upper endoscopy on 12/28/2018 and a total of 6 units of packed red blood cells. Hemoglobin on day of discharge was 9.8. Vital signs remained stable. He was afebrile. He states he felt better. CLOtest was negative. Routine labs were drawn for post revision of Aly-en-Y gastric bypass surgery. Folic acid was 21.7, vitamin B12 of 1372, ferritin 376, magnesium 1.8. Vitamin D, vitamin A, copper and thiamin results are pending as well as H pylori breath test. Manish was able to be discharged to home on 12/29/2018. PHYSICAL EXAMINATION: GENERAL: Manish Jamil is a 43-year-old male. Height is 5 feet 11 inches. Weight is 226 pounds. BMI is 31. VITAL SIGNS: TPR 98.2, 74, 18, blood pressure 112/66. HEENT: Negative. NECK: Supple. HEART: Regular rate and rhythm. LUNGS: Clear. ABDOMEN: Soft and nontender. EXTREMITIES: Without peripheral edema. DISPOSITION: Discharged to home. CONDITION: Stable and improving. FOLLOWUP: Followup appointment with Estela Perez PA-C, on 01/07/2019 at 11 a.m. HOME MEDICATIONS: 1. Tylenol 650 mg oral q.6 hours p.r.n. pain or fever. 2. Culturelle one capsule oral twice daily, #60. 3. Levaquin 750 mg oral every 24 hours, #7. 4. Protonix 40 mg oral twice daily, #60 with five refills. He is to resume his home medications of: 1. Elavil 75 mg at bedtime. 2. Lexapro 20 mg oral daily. 3. Ferrous sulfate 325 mg twice daily. 4. Fish oil one oral daily. 5. Lisinopril/hydrochlorothiazide 1.5 tab oral daily. 6. Zocor 20 mg oral at bedtime. 7. Bupropion HCL 300 mg oral daily. DIET: Usual diet as tolerated. ACTIVITY: As tolerated. Driving, may drive today. Shower/bathing, may shower. DISCHARGE INSTRUCTIONS: Notify provider if any fever, increased pain, nausea, or vomiting.
[2018-12-30 15:13] LABS: H. PYLORI BREATH TEST Negative (Negative)
--- NOTE | 2018-12-31 10:59 | OR ---
DATE OF PROCEDURE: 12/28/2018 PREOPERATIVE DIAGNOSIS: Upper gastrointestinal bleeding. POSTOPERATIVE DIAGNOSIS: Recent upper gastrointestinal bleeding, likely associated with marginal ulcer. OPERATIVE PROCEDURE: Upper GI endoscopy with biopsy of gastric pouch for CLOtest. ANESTHESIA: IV sedation. INDICATION FOR PROCEDURE: Please see previous notes. Potential risks including bleeding and perforation were discussed, and the patient wishes to proceed. DETAILS OF PROCEDURE: The patient was taken to the operating room and placed in a left lateral decubitus position. IV sedation was administered, after which the upper GI endoscope was passed orally through the length of the esophagus and into the gastric pouch and from there through the gastrojejunostomy roughly 20 cm into the Aly limb. Findings included normal hypopharynx, larynx, upper esophageal sphincter, esophageal body, as well as the EG junction. The gastric pouch likewise was normal. At the level of the gastrojejunostomy, the patient did have an area of ulceration, which was now covered with fibrinous exudate. This would likely account for the patient's recent bleeding. No blood or bleeding was seen presently. Photodocumentation of the ulcer was obtained. Biopsies were then obtained from the gastric pouch and sent for CLOtest for H. pylori. Minimal bleeding from the biopsy site was seen, and the procedure was then concluded. The patient was taken to the recovery room in a satisfactory condition. Betito Ruiz MD Job #: [id number]
--- NOTE | 2019-01-01 07:50 | PN ---
DATE OF SERVICE: 12/28/2018 The patient has been afebrile with stable vital signs. No further evidence of further bleeding. Hemoglobin was up at 8.4 after the transfusion yesterday. His various vitamins and ferritin level are all within normal limits, so he has probably been quite compliant with the vitamin supplement regimen and will not need any iron supplementation or B12 supplementation, in addition to other transfusions at this point. The patient had an upper endoscopy which showed a healing marginal ulcer, which is covered with fibrinous exudate, and I think we can probably start him on a step-3, i.e. a soft solid diet today, and will have Dietary see the patient in the morning. With hemoglobin of 8.4, we will give him 2 units of packed RBCs additionally today, and then I will recheck some laboratory studies in the morning. He is still being treated for some respiratory issues per Dr. Win, and whether or not he will be transferred to second floor will be up to Dr. Win. Otherwise, he may be ready for discharge home tomorrow and likely continue the active proton pump inhibitor treatment. Betito Ruiz MD Job #: [id number]
== END 2018-12-29 10:05 | disposition home or self-care (01) | DRG 378 ==
LOC: JP.ED 19:38 → JP.ICU 12-27 00:08 → JP.MS 12-28 14:15
PROVIDERS: ADMIT Hospitalist; ATTEND Internal Medicine
PROC: 30233N1 Transfusion of Nonautologous Red Blood Cells into Peripheral Vein, Percutaneous Approach (ICD-10-PCS; 2018-12-27)
PROC: 0DB68ZX Excision of Stomach, Via Natural or Artificial Opening Endoscopic, Diagnostic (ICD-10-PCS; principal; 2018-12-28)
PROC: 30233N1 Transfusion of Nonautologous Red Blood Cells into Peripheral Vein, Percutaneous Approach (ICD-10-PCS; 2018-12-28)
DX: K28.4 Chronic or unspecified gastrojejunal ulcer with hemorrhage (principal); D62 Acute posthemorrhagic anemia; E87.2 Acidosis; K92.1 Melena; I10 Essential (primary) hypertension; G47.30 Sleep apnea, unspecified; Z99.89 Dependence on other enabling machines and devices; M19.90 Unspecified osteoarthritis, unspecified site; F32.9 Major depressive disorder, single episode, unspecified; F41.9 Anxiety disorder, unspecified; Z98.84 Bariatric surgery status; Z98.0 Intestinal bypass and anastomosis status; H54.7 Unspecified visual loss; Z96.649 Presence of unspecified artificial hip joint; Z88.2 Allergy status to sulfonamides; Z88.8 Allergy status to other drugs, medicaments and biological substances
CPT/HCPCS: 36415; 36430; 71045; 71045-26; 71046; 80048; 80053; 81001; 82272; 82525; 82607; 82728; 82746; 83013; 83605; 83615; 83735; 84100; 84425; 84590; 84630; 85018; 85025; 86140; 86850; 86900; 86901; 86920; 86922; 87040; 87081; 87804; 87804-59; 93005; 94640; 96365; 96375; 99284-25; A9270-GY; C9113; J1956; J2060; J2250; J2543; J2704; J3010; J7030; J7050; J7120; J7620-GY; P9016

== ENCOUNTER 2020-11-11 13:01 | Inpatient (IN) | payer SELFPAY ==
--- NOTE | 2020-11-11 14:07 | EDM.PDOC ---
ED HPI GENERAL MEDICAL PROBLEM - General Chief Complaint: Respiratory Problem Stated Complaint: COVID SYMPTOMS Time Seen by Provider: 11/11/20 13:54 Source of Information: Reports: Patient History Limitations: Reports: Physical Impairment - History of Present Illness INITIAL COMMENTS - FREE TEXT/NARRATIVE: Patient presents from the walk-in clinic describing several days of fever, malaise, nausea, vomiting, diarrhea and occasional cough. Because of symptoms, he was tested for COVID-19 on 07 November and found to be negative. The symptoms described today have persisted since then although his temperature seems higher and he seems more uncomfortable. He had a tympanic temperature of 104 degrees in the clinic today. After clinical and laboratory evaluation, staff at the w alk-in clinic was concerned that he might need admission for treatment of pneumonia as well as his gastrointestinal symptoms. There is also a question of whether he may be COVID-19 positive now even though he was not 4 days prior. Onset: Gradual Duration: Day(s): (4) Location: Reports: Chest, Abdomen Quality: Reports: Ache Severity: Moderate Improves with: Reports: None Worsens with: Reports: Movement Associated Symptoms: Reports: Malaise, Nausea/Vomiting Headache Pain Score (Numeric/FACES): 7 Left Hip Pain Score (Numeric/FACES): 9 - Related Data Allergies Allergy/AdvReac Type Severity Reaction Status Date / Time Sulfa (Sulfonamide AdvReac Nausea Verified 11/11/20 13:27 Antibiotics) topiramate [From Topamax] AdvReac Blurred Verified 11/11/20 13:27 Vision Home Meds: Home Meds Escitalopram [Lexapro] 20 mg PO DAILY 01/31/15 [History] Ferrous Sulfate 325 mg PO BID 10/27/17 [History] Acetaminophen [Tylenol] 650 mg PO Q4H PRN tablet 12/29/18 [Rx] Tamsulosin HCl 0.4 mg PO DAILY 11/11/20 [History] Vitamin A 10,000 unit PO DAILY 11/11/20 [History] Past Medical History HEENT History: Reports: Impaired Vision, Otitis Media Cardiovascular History: Reports: High Cholesterol, Hypertension Respiratory History: Reports: Sleep Apnea, Other (See Below) Other Respiratory History: Cpap Gastrointestinal History: Reports: Bowel Obstruction Genitourinary History: Reports: Retention, Urinary Musculoskeletal History: Reports: Arthritis Psychiatric History: Reports: Anxiety, Depression Endocrine/Metabolic History: Reports: Obesity/BMI 30+ Hematologic History: Reports: Anemia, Iron Deficiency - Infectious Disease History Infectious Disease History: Reports: Chicken Pox - Past Surgical History Head Surgeries/Procedures: Reports: None HEENT Surgical History: Reports: Adenoidectomy, Myringotomy w Tube(s), Tonsillectomy Cardiovascular Surgical History: Reports: None Respiratory Surgical History: Reports: None GI Surgical History: Reports: Bariatric Procedure, Hernia Repair/Other, Small Bowel Male Surgical History: Reports: None Endocrine Surgical History: Reports: None Musculoskeletal Surgical History: Reports: Hip Replacement Dermatological Surgical History: Reports: None Social & Family History - Family History Family Medical History: Unobtainable - Tobacco Use Tobacco Use Status *Q: Never Tobacco User Second Hand Smoke Exposure: No - Caffeine Use Caffeine Use: Reports: None - Recreational Drug Use Recreational Drug Use: No ED ROS GENERAL - Review of Systems Review Of Systems: See Below Constitutional: Reports: Fever, Chills, Malaise, Decreased Appetite. Denies: Night Sweats HEENT: Reports: No Symptoms Respiratory: Reports: Shortness of Breath, Cough Cardiovascular: Reports: No Symptoms Endocrine: Reports: Fatigue GI/Abdominal: Reports: Diarrhea, Nausea, Vomiting. Denies: Abdominal Pain : Reports: No Symptoms Musculoskeletal: Reports: No Symptoms Skin: Reports: No Symptoms ED EXAM, GENERAL - Physical Exam Exam: See Below Free Text/Narrative:: This is an adult male examined in room 4. He has had several intense nausea and retching episodes prior to my arrival. Exam Limited By: No Limitations General Appearance: Moderate Distress Throat/Mouth: Normal Inspection Respiratory/Chest: No Respiratory Distress, Lungs Clear GI/Abdominal: Soft, Abnormal Bowel Sounds Back Exam: CVA Tenderness (L) Course - Vital Signs Last Recorded V/S: Last Vital Signs Temp 39.9 C H 11/11/20 16:14 Pulse 107 H 11/11/20 16:14 Resp 26 H 11/11/20 16:14 BP 118/62 11/11/20 16:14 Pulse Ox 91 L 11/11/20 16:14 - Orders/Labs/Meds Orders: Active Orders 24 hr Category Date Time Status Patient Status Manage Transfer [TRANSFER] Routine ADT 11/11/20 16:56 Active BLOOD GAS ARTERIAL [BG] Stat Lab 11/11/20 16:48 Ordered CULTURE BLOOD [BC] Urgent Lab 11/11/20 16:15 Ordered CULTURE BLOOD [BC] Urgent Lab 11/11/20 16:15 Ordered CULTURE RESPIRATORY + SMEAR [RM] Stat Lab 11/11/20 16:17 Ordered INFLUENZA A+B AG SCREEN [RM] Stat Lab 11/11/20 16:47 Ordered PROCALCITONIN [CHEM] Stat Lab 11/11/20 16:50 Received Doxycycline [Vibramycin] 100 mg Med 11/11/20 18:00 Active Sodium Chloride 0.9% [Normal Saline] 100 ml IV Q12H Sodium Chloride 0.9% [Normal Saline] 1,000 ml Med 11/11/20 14:48 Ordered IV .BOLUS Sodium Chloride 0.9% [Saline Flush] Med 11/11/20 14:54 Ordered 10 ml FLUSH ASDIRECTED PRN cefTRIAXone [Rocephin] 1 gm Med 11/11/20 17:00 Active Sodium Chloride 0.9% [Normal Saline] 50 ml IV Q24H Blood Culture x2 Reflex Set [OM.PC] Urgent Oth 11/11/20 16:15 Ordered Saline Lock Insert [OM.PC] Routine Oth 11/11/20 14:54 Ordered Resuscitation Status Routine Resus Stat 11/11/20 16:58 Ordered Medication Orders Sodium Chloride (Normal Saline) 1,000 mls @ 250 mls/hr IV .BOLUS ONE Stop: 11/11/20 18:47 Last Admin: 11/11/20 15:08 Dose: 250 mls/hr Documented by: Ceftriaxone Sodium 1 gm/ (Sodium Chloride) 50 mls @ 100 mls/hr IV Q24H KAYLEN Doxycycline Hyclate 100 mg/ (Sodium Chloride) 100 mls @ 100 mls/hr IV Q12H KAYLEN Sodium Chloride (Saline Flush) 10 ml FLUSH ASDIRECTED PRN PRN Reason: Keep Vein Open Last Admin: 11/11/20 15:09 Dose: 10 ml Documented by: Labs: Laboratory Tests 11/11/20 11/11/20 Range/Units 15:22 16:10 SARS-CoV-2 RNA (SUZIE) Negative (NEGATIVE) SARS CoV-2 RNA Rapid SUZIE Negative Meds: Medications Generic Name Dose Route Start Last Admin Trade Name Freq PRN Reason Stop Dose Admin Sodium Chloride 1,000 mls @ 250 mls/hr 11/11/20 14:48 11/11/20 15:08 Normal Saline IV 11/11/20 18:47 250 mls/hr .BOLUS ONE Administration Ceftriaxone Sodium 1 gm/ 50 mls @ 100 mls/hr 11/11/20 17:00 Sodium Chloride IV Q24H KAYLEN Doxycycline Hyclate 100 mg/ 100 mls @ 100 mls/hr 11/11/20 18:00 Sodium Chloride IV Q12H KAYLEN Sodium Chloride 10 ml 11/11/20 14:54 11/11/20 15:09 Saline Flush FLUSH 10 ml ASDIRECTED PRN Administration Keep Vein Open Discontinued Medications Generic Name Dose Route Start Last Admin Trade Name Noelq PRN Reason Stop Dose Admin Acetaminophen 650 mg 11/11/20 15:58 11/11/20 16:06 Tylenol PO 11/11/20 15:59 650 mg NOW ONE Administration Ondansetron HCl 4 mg 11/11/20 14:47 11/11/20 15:07 Zofran IVPUSH 11/11/20 14:48 4 mg ONETIME ONE Administration - Re-Assessments/Exams Free Text/Narrative Re-Assessment/Exam: 11/11/20 15:43 We do not have his actual chest x-ray images however it was shown to have bilateral interstitial opacities along with some basal effusions. Labs obtained earlier show a variety of values although much is normal. Urine is good except for mild ketones. Basic electrolytes and creatinine are in a normal range. His CBC is 4600 hemoglobin is 9.7 which is slightly lower than recently obtained values. Report from COVID-19 testing on 07 November shows that it is negative. Patient will be given normal saline IV at 250 mL/h along with Zofran 4 mg IV. Overall he feels weak and debilitated. He may require hospitalization for hydration and nausea/vomiting control and treatment of possible pneumonia. We are awaiting transfer of his chest x-ray images through the electronic system. 11/11/20 15:45 11/11/20 17:08 Patient's temperature tympanically was down 105 degrees. He received Tylenol 650 mg and so far has been able to keep it down. I reviewed his case with the hospital service to arrange admission and further care. His initial COVID-19 test here was negative and a reflex follow-on test result is pending. X-ray images eventually were transferred to this facility. Departure - Departure Time of Disposition: 17:09 Disposition: Admitted As Inpatient 66 Clinical Impression: Pneumonia Qualifiers: Pneumonia type: due to unspecified organism Laterality: bilateral Lung location: unspecified part of lung Qualified Code(s): J18.9 - Pneumonia, unspecified organism Nausea and vomiting Qualifiers: Vomiting type: unspecified Vomiting Intractability: non-intractable Qualified Code(s): R11.2 - Nausea with vomiting, unspecified - Discharge Information Referrals: Ne Denson MD [Primary Care Provider] - Sepsis Event Note (ED) - Evaluation Sepsis Screening Result: Possible Sepsis Risk - Focused Exam Vital Signs: Vital Signs Temp Temp Pulse Resp BP Pulse Ox 11/11/20 16:14 39.9 C H 107 H 26 H 118/62 91 L 11/11/20 15:12 109 H 14 142/72 H 91 L 11/11/20 14:47 114 H 14 148/64 H 94 L 11/11/20 13:30 39.7 C H 104 H 20 161/71 H 96 11/11/20 13:13 39.7 C H 104 H 20 161/71 H 96 - My Orders Last 24 Hours: My Active Orders 11/11/20 14:48 Sodium Chloride 0.9% [Normal Saline] 1,000 ml IV .BOLUS 11/11/20 14:54 Sodium Chloride 0.9% [Saline Flush] 10 ml FLUSH ASDIRECTED PRN Saline Lock Insert [OM.PC] Routine 11/11/20 16:15 CULTURE BLOOD [BC] Urgent CULTURE BLOOD [BC] Urgent Blood Culture x2 Reflex Set [OM.PC] Urgent 11/11/20 16:17 CULTURE RESPIRATORY + SMEAR [RM] Stat - Assessment/Plan Last 24 Hours: My Active Orders 11/11/20 14:48 Sodium Chloride 0.9% [Normal Saline] 1,000 ml IV .BOLUS 11/11/20 14:54 Sodium Chloride 0.9% [Saline Flush] 10 ml FLUSH ASDIRECTED PRN Saline Lock Insert [OM.PC] Routine 11/11/20 16:15 CULTURE BLOOD [BC] Urgent CULTURE BLOOD [BC] Urgent Blood Culture x2 Reflex Set [OM.PC] Urgent 11/11/20 16:17 CULTURE RESPIRATORY + SMEAR [RM] Stat
[2020-11-11] MEDS ORDERED: Ondansetron 4 MG/2 ML SDV IVPUSH ONE (14:47)
[2020-11-11] MEDS ORDERED: Sodium Chloride 0.9% 1,000 ML IV ONE (14:48)
[2020-11-11] MEDS ORDERED: Sodium Chloride 0.9% 10 ML Syringe FLUSH PRN ×2 (14:54→17:45)
[2020-11-11] MEDS ORDERED: Acetaminophen 325 MG Tab PO ONE (15:58)
[2020-11-11] MEDS ORDERED: cefTRIAXone 1 GM in Sodium Chloride 0.9% 50 ML IV SCH (17:00)
--- NOTE | 2020-11-11 17:01 | PCM.HP.2 ---
H&P History of Present Illness - General Date of Service: 11/11/20 Admit Problem/Dx: Admission Diagnosis/Problem Admission Diagnosis/Problem Pneumonia Source of Information: Patient, Old Records, Provider, RN Notes Reviewed History Limitations: Reports: No Limitations - History of Present Illness Initial Comments - Free Text/Narative: Mr. Jamil is a 45-year-old gentleman who was admitted through the emergency department with progressive weakness, shortness of breath and fever secondary to pneumonia. He was hospitalized at this facility almost 2 years ago with similar symptoms and was treated for pneumonia at that time. He is status post gastric bypass surgery, but otherwise has been fairly healthy. He has not felt well over the past week and was seen in the clinic initially, started on oral antibiotic therapy with amoxicillin for sinus infection. Symptoms have worsened over the past week with persistent recurrent fever chills and sweats as well as shortness of breath and progressive weakness. 5 days ago he underwent Covid testing that was negative. Because of progressive symptoms he presented to the walk-in clinic today. Chest x-ray there showed bilateral infiltrates, normal white blood cell count. He was referred to the emergency department for further evaluation, Covid testing as well as influenza testing are negative. Blood gases do show some hyperventilation with a respiratory alkalosis. Blood and sputum cultures have been obtained and he has been started on IV fluids as well as antibiotic therapy for community-acquired pneumonia with doxycycline and ceftriaxone. Headache Pain Score (Numeric/FACES): 7 Left Hip Pain Score (Numeric/FACES): 9 - Related Data Allergies/Adverse Reactions: Allergies Allergy/AdvReac Type Severity Reaction Status Date / Time Sulfa (Sulfonamide AdvReac Nausea Verified 11/11/20 13:27 Antibiotics) topiramate [From Topamax] AdvReac Blurred Verified 11/11/20 13:27 Vision Home Medications: Home Meds Escitalopram [Lexapro] 20 mg PO DAILY 01/31/15 [History] Ferrous Sulfate 325 mg PO BID 10/27/17 [History] Acetaminophen [Tylenol] 650 mg PO Q4H PRN tablet 12/29/18 [Rx] Tamsulosin HCl 0.4 mg PO DAILY 11/11/20 [History] Vitamin A 10,000 unit PO DAILY 11/11/20 [History] Past Medical History HEENT History: Reports: Impaired Vision, Otitis Media Cardiovascular History: Reports: High Cholesterol, Hypertension Respiratory History: Reports: Sleep Apnea, Other (See Below) Other Respiratory History: Cpap Gastrointestinal History: Reports: Bowel Obstruction Genitourinary History: Reports: Retention, Urinary Musculoskeletal History: Reports: Arthritis Psychiatric History: Reports: Anxiety, Depression Endocrine/Metabolic History: Reports: Obesity/BMI 30+ Hematologic History: Reports: Anemia, Iron Deficiency - Infectious Disease History Infectious Disease History: Reports: Chicken Pox - Past Surgical History Head Surgeries/Procedures: Reports: None HEENT Surgical History: Reports: Adenoidectomy, Myringotomy w Tube(s), Tonsillectomy Cardiovascular Surgical History: Reports: None Respiratory Surgical History: Reports: None GI Surgical History: Reports: Bariatric Procedure, Hernia Repair/Other, Small Bowel Male Surgical History: Reports: None Endocrine Surgical History: Reports: None Musculoskeletal Surgical History: Reports: Hip Replacement Dermatological Surgical History: Reports: None Social & Family History - Family History Family Medical History: Unobtainable - Tobacco Use Tobacco Use Status *Q: Never Tobacco User Second Hand Smoke Exposure: No - Caffeine Use Caffeine Use: Reports: None - Recreational Drug Use Recreational Drug Use: No H&P Review of Systems - Review of Systems: Review Of Systems: See Below General: Reports: Fever, Chills, Malaise, Weakness, Fatigue, Diaphoresis, Decreased Appetite HEENT: Reports: No Symptoms Pulmonary: Reports: Shortness of Breath. Denies: Wheezing, Pleuritic Chest Pain, Cough, Sputum, Hemoptysis Cardiovascular: Reports: Dyspnea on Exertion. Denies: Chest Pain, Palpitations, Orthopnea, PND, Edema, Lightheadedness Gastrointestinal: Reports: No Symptoms Genitourinary: Reports: No Symptoms Musculoskeletal: Reports: No Symptoms Skin: Reports: No Symptoms Psychiatric: Reports: No Symptoms Neurological: Reports: No Symptoms Hematologic/Lymphatic: Reports: No Symptoms Immunologic: Reports: No Symptoms Exam - Exam Exam: See Below - Vital Signs Vital Signs: Last Vital Signs Temp 103.8 F H 11/11/20 16:14 Pulse 107 H 11/11/20 16:14 Resp 26 H 11/11/20 16:14 BP 118/62 11/11/20 16:14 Pulse Ox 91 L 11/11/20 16:14 Weight: 230 lb - Exam Quality Assessment: DVT Prophylaxis General: Alert, Oriented, Cooperative, Moderate Distress HEENT: Conjunctiva Clear, Hearing Intact, Normal Nasal Septum, Posterior Pharynx Clear, Pupils Equal. No: Mucosa Moist & [place] Neck: Supple, Trachea Midline, +2 Carotid Pulse wo Bruit Lungs: Clear to Auscultation, Normal Respiratory Effort. No: Crackles, Rales, Rhonchi, Wheezing Cardiovascular: Regular Rate, Regular Rhythm, Normal S1, Normal S2, Systolic Murmur. No: Diastolic Murmur GI/Abdominal Exam: Soft, Non-Tender, No Organomegaly, No Distention Back Exam: Normal Inspection, Full Range of Motion Extremities: Non-Tender, Pedal Edema Skin: Warm, Dry, Intact Neurological: Cranial Nerves Intact, Strength Equal Bilateral, Normal Speech, Normal Tone, Sensation Intact. No: Focal Deficit Neuro Extensive - Mental Status: Alert, Oriented x3, Normal Mood/Affect, Normal Cognition, Memory Intact - Patient Data Lab Results Last 24 hrs: Laboratory Results - last 24 hr 11/11/20 Range/Units 15:22 SARS CoV-2 RNA Rapid SUZIE Negative Sepsis Event Note - Evaluation Sepsis Screening Result: Possible Sepsis Risk - Focused Exam Vital Signs: Vital Signs Temp Temp Pulse Resp BP Pulse Ox 11/11/20 16:14 103.8 F H 107 H 26 H 118/62 91 L 11/11/20 15:12 109 H 14 142/72 H 91 L 11/11/20 14:47 114 H 14 148/64 H 94 L 11/11/20 13:30 103.4 F H 104 H 20 161/71 H 96 11/11/20 13:13 103.4 F H 104 H 20 161/71 H 96 *Q Meaningful Use (ADM) - VTE Risk Assess *Q Each Risk Factor Represents 1 Point: Age 41 - 59 years, Obesity ( BMI > 25 kg/m2), Serious lung disease including pneumonia Total Score 1 Point Risk Factors: 3 Each Risk Factor Represents 2 Points: None Total Score 2 Point Risk Factors: 0 Each Risk Factor Represents 3 Points: None Total Score 3 Point Risk Factors: 0 Each Risk Factor Represents 5 Points: None Total Score 5 Point Risk Factors: 0 Venous Thromboembolism Risk Factor Score *Q: 3 Problem List Initiated/Reviewed/Updated: Yes Orders Last 24hrs: Active Orders 24 hr Category Date Time Status Patient Status Manage Transfer [TRANSFER] Routine ADT 11/11/20 16:56 Ordered BLOOD GAS ARTERIAL [BG] Stat Lab 11/11/20 16:48 Ordered CORONAVIRUS COVID-19 SUZIE [MOLEC] Routine Lab 11/11/20 16:10 Received CULTURE BLOOD [BC] Urgent Lab 11/11/20 16:20 Received CULTURE BLOOD [BC] Urgent Lab 11/11/20 16:30 Received CULTURE RESPIRATORY + SMEAR [RM] Stat Lab 11/11/20 16:17 Ordered INFLUENZA A+B AG SCREEN [RM] Stat Lab 11/11/20 16:47 Ordered PROCALCITONIN [CHEM] Stat Lab 11/11/20 16:50 Received Doxycycline [Vibramycin] 100 mg Med 11/11/20 18:00 Active Sodium Chloride 0.9% [Normal Saline] 100 ml IV Q12H Sodium Chloride 0.9% [Normal Saline] 1,000 ml Med 11/11/20 14:48 Active IV .BOLUS Sodium Chloride 0.9% [Saline Flush] Med 11/11/20 14:54 Active 10 ml FLUSH ASDIRECTED PRN cefTRIAXone [Rocephin] 1 gm Med 11/11/20 17:00 Active Sodium Chloride 0.9% [Normal Saline] 50 ml IV Q24H Blood Culture x2 Reflex Set [OM.PC] Urgent Oth 11/11/20 16:15 Ordered Saline Lock Insert [OM.PC] Routine Oth 11/11/20 14:54 Ordered Resuscitation Status Routine Resus Stat 11/11/20 16:58 Ordered Medication Orders Sodium Chloride (Normal Saline) 1,000 mls @ 250 mls/hr IV .BOLUS ONE Stop: 11/11/20 18:47 Last Admin: 11/11/20 15:08 Dose: 250 mls/hr Documented by: TARAN Ceftriaxone Sodium 1 gm/ (Sodium Chloride) 50 mls @ 100 mls/hr IV Q24H KAYLEN Doxycycline Hyclate 100 mg/ (Sodium Chloride) 100 mls @ 100 mls/hr IV Q12H KAYLEN Sodium Chloride (Saline Flush) 10 ml FLUSH ASDIRECTED PRN PRN Reason: Keep Vein Open Last Admin: 11/11/20 15:09 Dose: 10 ml Documented by: TARAN Assessment/Plan Comment:: ASSESSMENT AND PLAN BILATERAL PNEUMONIA AND SEPSIS-viral versus bacterial, although he does have significant elevation in procalcitonin more consistent with bacterial infection. Elevated heart rate as well as fever consistent with early sepsis. He has received vigorous IV fluid replacement in the emergency department. Cultures have been obtained and antibiotic therapy started in the ED as well. -Blood and sputum cultures pending -IV ceftriaxone and doxycycline, pending culture results. -Supplemental oxygen as needed -Albuterol nebs as needed -Continuous pulse oximetry MAINTENANCE ISSUES -DVT prophylaxis; Lovenox 40 mg subcu daily -GI prophylaxis; not indicated -Armstrong catheter; not indicated -Nutrition; regular diet -Nicotine dependence; not required CODE STATUS-FULL CODE ADMISSION STATUS-patient will be admitted to inpatient status, expect at least a 2 night hospital stay for evaluation and management of problems as outlined above. At the time of this admission I do not reasonably expected evaluation and management of this problem will require more than a 96 hour hospital stay. DISPOSITION-anticipate discharge to home after the hospital stay. PRIMARY CARE PROVIDER-Dr. Denson - Mortality Measure Prognosis:: Good
[2020-11-11] MEDS ORDERED: Albuterol 0.083% 2.5 MG/3 ML Neb Soln NEB PRN (17:45)
[2020-11-11] MEDS ORDERED: Polyethylene Glycol 3350 Powder 17 GM Packet PO PRN (17:45)
[2020-11-11] MEDS: Doxycycline 100 MG in Sodium Chloride 0.9% 100 ML IV SCH (17:57)
[2020-11-11] MEDS: Sodium Chloride 0.9% 1,000 ML IV SCH (18:44)
[2020-11-11] MEDS: Acetaminophen 325 MG Tab PO PRN (20:12)
[2020-11-11] MEDS ORDERED: Enoxaparin 40 MG/0.4 ML Syringe SUBCUT ONE (21:15)
[2020-11-11] MEDS ORDERED: Melatonin 3 MG Tab PO PRN (22:29)
[2020-11-11] MEDS: Acetaminophen/HYDROcodone 325-5 MG Tab PO PRN (22:51)
[2020-11-12] MEDS: Acetaminophen 325 MG Tab PO PRN ×4 (00:44→22:06)
[2020-11-12] MEDS: Sodium Chloride 0.9% 1,000 ML IV SCH ×2 (03:03→11:36)
[2020-11-12] MEDS ORDERED: Ibuprofen 600 MG Tab PO ONE (03:21)
[2020-11-12] MEDS: Ondansetron 4 MG/2 ML SDV IV PRN ×2 (03:30→13:06)
[2020-11-12] MEDS ORDERED: Ketorolac 30 MG/ML SDV IVPUSH ONE (03:35)
[2020-11-12] MEDS: Doxycycline 100 MG in Sodium Chloride 0.9% 100 ML IV SCH (05:36)
[2020-11-12] MEDS ORDERED: Potassium Chloride 20 MEQ Tab.ER PO ONE ×3 (09:00→17:00)
[2020-11-12] MEDS: Tamsulosin 0.4 MG Cap.ER PO SCH (09:52)
[2020-11-12] MEDS: Escitalopram 20 MG Tab PO SCH (09:52)
--- NOTE | 2020-11-12 10:40 | PCM.PN ---
- General Info Date of Service: 11/12/20 Subjective Update: Mr. Jamil continued to have significant temperature elevation since admission and has required increased level of supplemental oxygen now up to 4 L/min via nasal cannula. Continues to feel fairly weak and tired, poor appetite. Vital signs have remained stable. Functional Status: Reports: Urinating - Review of Systems General: Reports: Fever, Weakness, Fatigue, Malaise, Chills Pulmonary: Reports: Shortness of Breath, Cough. Denies: Pleuritic Chest Pain, Sputum, Hemoptysis, Wheezing Cardiovascular: Reports: Dyspnea on Exertion. Denies: Chest Pain, Palpitations, Orthopnea, PND, Edema, Lightheadedness Gastrointestinal: Reports: No Symptoms - Patient Data Vitals - Most Recent: Last Vital Signs Temp 100.1 F 11/12/20 10:00 Pulse 82 11/12/20 10:00 Resp 20 11/12/20 10:00 BP 143/78 H 11/12/20 10:00 Pulse Ox 97 11/12/20 10:00 Weight - Most Recent: 220 lb I&O - Last 24 Hours: Intake & Output 11/11/20 11/12/20 11/12/20 22:59 06:59 14:59 Intake Total 977 2511 400 Output Total 875 200 200 Balance 102 2311 200 Lab Results Last 24 Hours: Laboratory Results - last 24 hr 11/11/20 11/11/20 11/11/20 Range/Units 15:22 16:10 16:50 WBC (4.5-11.0) K/uL RBC (4.30-5.90) M/uL Hgb (12.0-15.0) g/dL Hct (40.0-54.0) % MCV (80-98) fL MCH (27-31) pg MCHC (32-36) % Plt Count (150-400) K/uL Neut % (Auto) (36-66) % Lymph % (Auto) (24-44) % [place] % (Auto) (2-6) % Eos % (Auto) (2-4) % Baso % (Auto) (0-1) % Puncture Site ABG pH (7.350-7.450) ABG pCO2 (35.0-42.0) mmHg ABG pO2 (75.0-100.0) mmHg ABG HCO3 (22.0-26.0) mmol/L ABG Total CO2 (23.0-27.0) mmol/L ABG O2 Saturation (95.0-98.0) % ABG O2 Content (15.0-23.0) %vol ABG Base Excess mm/L ABG Hemoglobin (13.5-18.0) g/dL ABG Oxyhemoglobin % ABG Carboxyhemoglobin (0.0-1.6) % ABG Methemoglobin % William Test O2 Delivery Device Sodium (140-148) mmol/L Potassium (3.6-5.2) mmol/L Chloride (100-108) mmol/L Carbon Dioxide (21-32) mmol/L Anion Gap (5.0-14.0) mmol/L BUN (7-18) mg/dL Creatinine (0.8-1.3) mg/dL Est Cr Clr Drug Dosing mL/min Estimated GFR (MDRD) (>60) Glucose (74-106) mg/dL Calcium (8.5-10.1) mg/dL Magnesium (1.8-2.4) mg/dL Total Bilirubin (0.2-1.0) mg/dL AST (15-37) U/L ALT (12-78) U/L Alkaline Phosphatase (46-116) U/L Total Protein (6.4-8.2) g/dL Albumin (3.4-5.0) g/dL Globulin (2.3-3.5) g/dL Albumin/Globulin Ratio (1.2-2.2) Procalcitonin 2.48 H* ng/mL SARS-CoV-2 RNA (SUZIE) Negative (NEGATIVE) SARS CoV-2 RNA Rapid SUZIE Negative 11/11/20 11/12/20 11/12/20 Range/Units 17:19 04:08 04:08 WBC 4.9 (4.5-11.0) K/uL RBC 3.88 L (4.30-5.90) M/uL Hgb 10.6 L (12.0-15.0) g/dL Hct 35.4 L (40.0-54.0) % MCV 91 (80-98) fL MCH 27 (27-31) pg MCHC 30 L (32-36) % Plt Count 220 (150-400) K/uL Neut % (Auto) 53 (36-66) % Lymph % (Auto) 34 (24-44) % [place] % (Auto) 12 H (2-6) % Eos % (Auto) 0 L (2-4) % Baso % (Auto) 1 (0-1) % Puncture Site Lt radial ABG pH 7.487 H (7.350-7.450) ABG pCO2 25.4 L (35.0-42.0) mmHg ABG pO2 81.2 (75.0-100.0) mmHg ABG HCO3 19.1 L (22.0-26.0) mmol/L ABG Total CO2 17.4 L (23.0-27.0) mmol/L ABG O2 Saturation 92.9 L (95.0-98.0) % ABG O2 Content 13.0 L (15.0-23.0) %vol ABG Base Excess -2.9 mm/L ABG Hemoglobin 10.3 L (13.5-18.0) g/dL ABG Oxyhemoglobin 89.3 % ABG Carboxyhemoglobin -0.2 L (0.0-1.6) % ABG Methemoglobin 4.1 % William Test Passed O2 Delivery Device Room air Sodium 140 (140-148) mmol/L Potassium 3.5 L (3.6-5.2) mmol/L Chloride 104 (100-108) mmol/L Carbon Dioxide 24 (21-32) mmol/L Anion Gap 15.5 H (5.0-14.0) mmol/L BUN 10 (7-18) mg/dL Creatinine 1.0 (0.8-1.3) mg/dL Est Cr Clr Drug Dosing 99.35 mL/min Estimated GFR (MDRD) > 60 (>60) Glucose 116 H (74-106) mg/dL Calcium 8.0 L (8.5-10.1) mg/dL Magnesium 1.8 (1.8-2.4) mg/dL Total Bilirubin 0.8 (0.2-1.0) mg/dL AST 42 H D (15-37) U/L ALT 47 D (12-78) U/L Alkaline Phosphatase 149 H (46-116) U/L Total Protein 6.0 L (6.4-8.2) g/dL Albumin 2.8 L (3.4-5.0) g/dL Globulin 3.2 (2.3-3.5) g/dL Albumin/Globulin Ratio 0.9 L (1.2-2.2) Procalcitonin ng/mL SARS-CoV-2 RNA (SUZIE) (NEGATIVE) SARS CoV-2 RNA Rapid SUZIE Kit Results Last 24 Hours: Microbiology 11/11/20 17:28 Influenza Type A Antigen Screen - Final Nasal, Unspecified NEGATIVE INFLUENZA A VIRUS AG REFERENCE RANGE: NEGATIVE Influenza Type B Antigen Screen - Final NEGATIVE INFLUENZA B VIRUS AG REFERENCE RANGE: NEGATIVE Med Orders - Current: Current Medications Acetaminophen (Tylenol) 650 mg PO Q4H PRN PRN Reason: Pain (Mild 1-3)/fever Last Admin: 11/12/20 07:59 Dose: 650 mg Documented by: Hydrocodone Bitart/Acetaminophen ([place] 325-5 Mg) 1 - 2 tab PO Q4H PRN PRN Reason: Pain Last Admin: 11/11/20 22:51 Dose: 1 tab Documented by: Albuterol (Proventil Neb Soln) 2.5 mg NEB Q4H PRN PRN Reason: Shortness Of Breath/wheezing Enoxaparin Sodium (Lovenox) 40 mg SUBCUT BEDTIME [facility] Escitalopram Oxalate (Lexapro) 20 mg PO DAILY [facility] Last Admin: 11/12/20 09:52 Dose: 20 mg Documented by: Ceftriaxone Sodium 1 gm/ (Sodium Chloride) 50 mls @ 100 mls/hr IV Q24H [facility] Last Admin: 11/11/20 17:23 Dose: 100 mls/hr Documented by: Doxycycline Hyclate 100 mg/ (Sodium Chloride) 100 mls @ 100 mls/hr IV Q12H [facility] Last Admin: 11/12/20 05:36 Dose: 100 mls/hr Documented by: Sodium Chloride (Normal Saline) 1,000 mls @ 50 mls/hr IV ASDIRECTED [facility] Melatonin (Melatonin) 6 mg PO BEDTIME PRN PRN Reason: Insomnia Last Admin: 11/11/20 22:52 Dose: 6 mg Documented by: Ondansetron HCl (Zofran) 4 mg IV Q4H PRN PRN Reason: Nausea/Vomiting Last Admin: 11/12/20 03:30 Dose: 4 mg Documented by: Polyethylene Glycol (Miralax) 17 gm PO DAILY PRN PRN Reason: Constipation Potassium Chloride (Klor-Con M20) 40 meq PO ONETIME ONE Stop: 11/12/20 17:01 Sodium Chloride (Saline Flush) 10 ml FLUSH ASDIRECTED PRN PRN Reason: Keep Vein Open Tamsulosin HCl (Flomax) 0.4 mg PO DAILY [facility] Last Admin: 11/12/20 09:52 Dose: 0.4 mg Documented by: Discontinued Medications Acetaminophen (Tylenol) 650 mg PO NOW ONE Stop: 11/11/20 15:59 Last Admin: 11/11/20 16:06 Dose: 650 mg Documented by: Enoxaparin Sodium (Lovenox) 40 mg SUBCUT ONETIME ONE Stop: 11/11/20 21:16 Last Admin: 11/11/20 21:48 Dose: 40 mg Documented by: Sodium Chloride (Normal Saline) 1,000 mls @ 250 mls/hr IV .BOLUS ONE Stop: 11/11/20 18:47 Last Admin: 11/11/20 15:08 Dose: 250 mls/hr Documented by: Sodium Chloride (Normal Saline) 1,000 mls @ 125 mls/hr IV ASDIRECTED [facility] Last Admin: 11/12/20 03:03 Dose: 125 mls/hr Documented by: Ibuprofen (Motrin) 600 mg PO ONETIME ONE Stop: 11/12/20 03:22 Last Admin: 11/12/20 05:25 Dose: Not Given Documented by: Ketorolac Tromethamine (Toradol) 30 mg IVPUSH ONETIME ONE Stop: 11/12/20 03:36 Last Admin: 11/12/20 03:45 Dose: 30 mg Documented by: Ondansetron HCl (Zofran) 4 mg IVPUSH ONETIME ONE Stop: 11/11/20 14:48 Last Admin: 11/11/20 15:07 Dose: 4 mg Documented by: Potassium Chloride (Klor-Con M20) 40 meq PO ONETIME ONE Stop: 11/12/20 09:01 Sodium Chloride (Saline Flush) 10 ml FLUSH ASDIRECTED PRN PRN Reason: Keep Vein Open Last Admin: 11/11/20 15:09 Dose: 10 ml Documented by: - Exam Quality Assessment: Supplemental Oxygen, DVT Prophylaxis General: Alert, Oriented, Cooperative, Moderate Distress Lungs: Clear to Auscultation, Decreased Breath Sounds, Rhonchi. No: Rales, Wheezing Cardiovascular: Regular Rate, Regular Rhythm, No Murmurs GI/Abdominal Exam: Soft, Non-Tender, No Organomegaly, No Distention Extremities: Non-Tender, No Pedal Edema Sepsis Event Note - Evaluation Sepsis Screening Result: No Definite Risk - Focused Exam Vital Signs: Vital Signs Temp Temp Pulse Resp BP Pulse Ox 11/12/20 10:00 100.1 F 82 20 143/78 H 97 11/12/20 08:48 99.9 F 11/12/20 08:29 99.9 F 11/12/20 07:59 101.9 F H 11/12/20 07:44 101.9 F H 86 16 144/76 H 95 11/12/20 07:22 97 11/12/20 05:01 100.6 F 11/12/20 04:15 101.8 F H 11/12/20 03:30 103.8 F H 11/12/20 03:00 102.3 F H 85 20 150/69 H 94 L 11/12/20 01:14 102 F H 11/12/20 00:44 101.7 F H 11/12/20 00:27 92 L 11/11/20 23:37 100.8 F H 88 18 129/55 L 93 L - Problem List Review Problem List Initiated/Reviewed/Updated: Yes - My Orders Last 24 Hours: My Active Orders 11/11/20 Lunch Regular Diet [DIET] 11/11/20 16:58 Resuscitation Status Routine 11/11/20 17:00 cefTRIAXone [Rocephin] 1 gm Sodium Chloride 0.9% [Normal Saline] 50 ml IV Q24H 11/11/20 17:45 Acetaminophen [TylenoL] 650 mg PO Q4H PRN Albuterol [Proventil Neb Soln] 2.5 mg NEB Q4H PRN Ondansetron [Zofran] 4 mg IV Q4H PRN Sodium Chloride 0.9% [Saline Flush] 10 ml FLUSH ASDIRECTED PRN polyethylene glycoL 3350 [MiraLAX] 17 gm PO DAILY PRN 11/11/20 17:45 Patient Status [ADT] Routine Ambulate [RC] QID Height and Weight [RC] DAILY Intake and Output [RC] QSHIFT Notify Provider Vital Signs [RC] ASDIRECTED Oxygen Therapy [RC] PRN Peripheral IV Care [RC] . DIRECTED Pulse Oximetry [RC] CONTINUOUS RT Aerosol Therapy [RC] ASDIRECTED Up to Chair [RC] QID Vital Signs [RC] Q4H Peripheral IV Insertion Adult [OM.PC] Routine 11/11/20 18:00 Doxycycline [Vibramycin] 100 mg Sodium Chloride 0.9% [Normal Saline] 100 ml IV Q12H 11/12/20 09:00 Escitalopram [Lexapro] 20 mg PO DAILY Tamsulosin [Flomax] 0.4 mg PO DAILY 11/12/20 10:45 Sodium Chloride 0.9% @ 50 MLS/HR(1000ml) Sodium Chloride 0.9% [Normal Saline] 1,000 ml IV ASDIRECTED 11/12/20 17:00 Potassium Chloride [Klor-Con M20] 40 meq PO ONETIME ONE 11/12/20 21:00 Enoxaparin [Lovenox] 40 mg SUBCUT BEDTIME 11/13/20 05:00 BASIC METABOLIC PANEL,BMP [CHEM] Timed CBC WITH AUTO DIFF [HEME] Timed - Plan Plan:: ASSESSMENT AND PLAN BILATERAL PNEUMONIA AND SEPSIS-viral versus bacterial, although he does have significant elevation in procalcitonin more consistent with bacterial infection. Elevated heart rate as well as fever consistent with early sepsis. He has received vigorous IV fluid replacement in the emergency department. Cultures have been obtained and antibiotic therapy started in the ED as well. -Blood and sputum cultures pending -IV ceftriaxone and doxycycline, pending culture results. HYPOXIC RESPIRATORY COMPROMISE-secondary to bilateral pneumonia -Supplemental oxygen as needed -Albuterol nebs as needed -Continuous pulse oximetry MAINTENANCE ISSUES -DVT prophylaxis; Lovenox 40 mg subcu daily -GI prophylaxis; not indicated -Armstrong catheter; not indicated -Nutrition; regular diet -Nicotine dependence; not required CODE STATUS-FULL CODE ADMISSION STATUS-patient will be admitted to inpatient status, expect at least a 2 night hospital stay for evaluation and management of problems as outlined above. At the time of this admission I do not reasonably expected evaluation and management of this problem will require more than a 96 hour hospital stay. DISPOSITION-anticipate discharge to home after the hospital stay. PRIMARY CARE PROVIDER-Dr. Denson
[2020-11-12] MEDS: Acetaminophen/HYDROcodone 325-5 MG Tab PO PRN (13:05)
[2020-11-12] MEDS ORDERED: Ibuprofen 400 MG Tab PO ONE (14:15)
[2020-11-12] MEDS ORDERED: Vancomycin 1 GM SDV IV SCH (16:00)
[2020-11-12] MEDS: Ketorolac 30 MG/ML SDV IVPUSH PRN ×2 (16:36→23:41)
[2020-11-12] MEDS: Piperacillin/Tazobactam 3.375 GM in Sodium Chloride 0.9% 50 ML IV SCH ×2 (16:40→22:14)
[2020-11-12] MEDS: Levofloxacin/Dextrose 5%-Water 750 MG in Premix Bag 1 BAG IV SCH (17:21)
[2020-11-12] MEDS ORDERED: Vancomycin 2 GM in Sodium Chloride 0.9% 500 ML IV ONE (18:00)
[2020-11-12] MEDS: Enoxaparin 40 MG/0.4 ML Syringe SUBCUT SCH (20:04)
[2020-11-13] MEDS: Acetaminophen/HYDROcodone 325-5 MG Tab PO PRN ×2 (02:09→21:12)
[2020-11-13] MEDS: Piperacillin/Tazobactam 3.375 GM in Sodium Chloride 0.9% 50 ML IV SCH (03:34)
[2020-11-13] MEDS: Ketorolac 30 MG/ML SDV IVPUSH PRN ×3 (07:49→23:10)
[2020-11-13] MEDS: Escitalopram 20 MG Tab PO SCH (09:37)
[2020-11-13] MEDS: Tamsulosin 0.4 MG Cap.ER PO SCH (09:37)
--- NOTE | 2020-11-13 10:11 | PCM.PN ---
- General Info Date of Service: 11/13/20 Subjective Update: Mr. Jamil is to experience temperature elevations on almost a continuous basis. Overall fever curve does seem to be slowly decreasing. Oxygenation has improved and he is currently requiring less supplemental oxygen. Subjectively continues to feel short of breath with cough. Functional Status: Reports: Tolerating Diet, Urinating - Review of Systems General: Reports: Fever, Weakness, Fatigue, Chills Pulmonary: Reports: Shortness of Breath, Cough. Denies: Pleuritic Chest Pain, Sputum, Hemoptysis, Wheezing Cardiovascular: Reports: Dyspnea on Exertion. Denies: Chest Pain, Palpitations, Orthopnea, PND Gastrointestinal: Reports: No Symptoms - Patient Data Vitals - Most Recent: Last Vital Signs Temp 100.8 F H 11/13/20 08:29 Pulse 92 11/13/20 07:41 Resp 18 11/13/20 03:16 BP 143/65 H 11/13/20 07:41 Pulse Ox 98 11/13/20 07:41 Weight - Most Recent: 229 lb 12.8 oz I&O - Last 24 Hours: Intake & Output 11/12/20 11/13/20 11/13/20 22:59 06:59 14:59 Intake Total 1340 2300 120 Output Total 875 625 650 Balance 465 1675 -530 Lab Results Last 24 Hours: Laboratory Results - last 24 hr 11/13/20 11/13/20 Range/Units 04:03 04:03 WBC 3.3 L (4.5-11.0) K/uL RBC 3.33 L (4.30-5.90) M/uL Hgb 9.0 L (12.0-15.0) g/dL Hct 30.2 L (40.0-54.0) % MCV 91 (80-98) fL MCH 27 (27-31) pg MCHC 30 L (32-36) % Plt Count 189 (150-400) K/uL Neut % (Auto) 51 (36-66) % Lymph % (Auto) 34 (24-44) % [place] % (Auto) 14 H (2-6) % Eos % (Auto) 0 L (2-4) % Baso % (Auto) 2 H (0-1) % Sodium 136 L (140-148) mmol/L Potassium 3.8 (3.6-5.2) mmol/L Chloride 103 (100-108) mmol/L Carbon Dioxide 22 (21-32) mmol/L Anion Gap 14.8 H (5.0-14.0) mmol/L BUN 12 (7-18) mg/dL Creatinine 0.8 (0.8-1.3) mg/dL Est Cr Clr Drug Dosing 124.19 mL/min Estimated GFR (MDRD) > 60 (>60) Glucose 117 H (74-106) mg/dL Calcium 7.7 L (8.5-10.1) mg/dL Kit Results Last 24 Hours: Microbiology 11/11/20 16:30 Aerobic Blood Culture - Preliminary Blood - Arm, Left NO GROWTH AFTER 1 DAY Anaerobic Blood Culture - Preliminary NO GROWTH AFTER 1 DAY 11/11/20 16:20 Aerobic Blood Culture - Preliminary Blood - Arm, Left NO GROWTH AFTER 1 DAY Anaerobic Blood Culture - Preliminary NO GROWTH AFTER 1 DAY 11/12/20 13:13 Gram Stain - Final Sputum - Expectorated Med Orders - Current: Current Medications Acetaminophen (Tylenol) 650 mg PO Q4H PRN PRN Reason: Pain (Mild 1-3)/fever Last Admin: 11/12/20 22:06 Dose: 650 mg Documented by: Hydrocodone Bitart/Acetaminophen ([place] 325-5 Mg) 1 - 2 tab PO Q4H PRN PRN Reason: Pain Last Admin: 11/13/20 02:09 Dose: 2 tab Documented by: Albuterol (Proventil Neb Soln) 2.5 mg NEB Q4H PRN PRN Reason: Shortness Of Breath/wheezing Enoxaparin Sodium (Lovenox) 40 mg SUBCUT BEDTIME [facility] Last Admin: 11/12/20 20:04 Dose: 40 mg Documented by: Escitalopram Oxalate (Lexapro) 20 mg PO DAILY [facility] Last Admin: 11/13/20 09:37 Dose: 20 mg Documented by: Sodium Chloride (Normal Saline) 1,000 mls @ 50 mls/hr IV ASDIRECTED [facility] Last Admin: 11/12/20 11:36 Dose: 50 mls/hr Documented by: Levofloxacin/Dextrose 750 mg/ (Premix) 150 mls @ 100 mls/hr IV Q24H [facility] Last Admin: 11/12/20 17:21 Dose: 100 mls/hr Documented by: Piperacillin/Tazobactam/ (Dextrose 3.375 gm/ Premix) 50 mls @ 100 mls/hr IV Q6H [facility] Vancomycin HCl 1.5 gm/ Sodium (Chloride) 250 mls @ 167 mls/hr IV Q8H [facility] Ketorolac Tromethamine (Toradol) 30 mg IVPUSH Q6H PRN PRN Reason: Pain Stop: 11/17/20 16:00 Last Admin: 11/13/20 07:49 Dose: 30 mg Documented by: Melatonin (Melatonin) 6 mg PO BEDTIME PRN PRN Reason: Insomnia Last Admin: 11/11/20 22:52 Dose: 6 mg Documented by: Ondansetron HCl (Zofran) 4 mg IV Q4H PRN PRN Reason: Nausea/Vomiting Last Admin: 11/12/20 13:06 Dose: 4 mg Documented by: Polyethylene Glycol (Miralax) 17 gm PO DAILY PRN PRN Reason: Constipation Sodium Chloride (Saline Flush) 10 ml FLUSH ASDIRECTED PRN PRN Reason: Keep Vein Open Tamsulosin HCl (Flomax) 0.4 mg PO DAILY [facility] Last Admin: 11/13/20 09:37 Dose: 0.4 mg Documented by: Discontinued Medications Acetaminophen (Tylenol) 650 mg PO NOW ONE Stop: 11/11/20 15:59 Last Admin: 11/11/20 16:06 Dose: 650 mg Documented by: Enoxaparin Sodium (Lovenox) 40 mg SUBCUT ONETIME ONE Stop: 11/11/20 21:16 Last Admin: 11/11/20 21:48 Dose: 40 mg Documented by: Sodium Chloride (Normal Saline) 1,000 mls @ 250 mls/hr IV .BOLUS ONE Stop: 11/11/20 18:47 Last Admin: 11/11/20 15:08 Dose: 250 mls/hr Documented by: Ceftriaxone Sodium 1 gm/ (Sodium Chloride) 50 mls @ 100 mls/hr IV Q24H [facility] Last Admin: 11/11/20 17:23 Dose: 100 mls/hr Documented by: Doxycycline Hyclate 100 mg/ (Sodium Chloride) 100 mls @ 100 mls/hr IV Q12H [facility] Last Admin: 11/12/20 05:36 Dose: 100 mls/hr Documented by: Sodium Chloride (Normal Saline) 1,000 mls @ 125 mls/hr IV ASDIRECTED [facility] Last Admin: 11/12/20 03:03 Dose: 125 mls/hr Documented by: Piperacillin Sod/Tazobactam (Sod 3.375 gm/ Sodium Chloride) 50 mls @ 100 mls/hr IV Q6H [facility] Last Admin: 11/13/20 03:34 Dose: 100 mls/hr Documented by: Vancomycin HCl 2 gm/ Sodium (Chloride) 500 mls @ 250 mls/hr IV ONETIME ONE Stop: 11/12/20 19:59 Last Admin: 11/12/20 18:40 Dose: 250 mls/hr Documented by: Vancomycin HCl 1.5 gm/ Sodium (Chloride) 250 mls @ 166.667 mls/hr IV Q12H [facility] Last Admin: 11/13/20 05:30 Dose: 166.667 mls/hr Documented by: Ibuprofen (Motrin) 600 mg PO ONETIME ONE Stop: 11/12/20 03:22 Last Admin: 11/12/20 05:25 Dose: Not Given Documented by: Ibuprofen (Motrin) 400 mg PO ONETIME ONE Stop: 11/12/20 14:16 Last Admin: 11/12/20 14:16 Dose: 400 mg Documented by: Ketorolac Tromethamine (Toradol) 30 mg IVPUSH ONETIME ONE Stop: 11/12/20 03:36 Last Admin: 11/12/20 03:45 Dose: 30 mg Documented by: Ondansetron HCl (Zofran) 4 mg IVPUSH ONETIME ONE Stop: 11/11/20 14:48 Last Admin: 11/11/20 15:07 Dose: 4 mg Documented by: Potassium Chloride (Klor-Con M20) 40 meq PO ONETIME ONE Stop: 11/12/20 17:01 Last Admin: 11/12/20 17:29 Dose: 40 meq Documented by: Potassium Chloride (Klor-Con M20) 40 meq PO ONETIME ONE Stop: 11/12/20 11:31 Last Admin: 11/12/20 11:50 Dose: Not Given Documented by: Sodium Chloride (Saline Flush) 10 ml FLUSH ASDIRECTED PRN PRN Reason: Keep Vein Open Last Admin: 11/11/20 15:09 Dose: 10 ml Documented by: Vancomycin HCl (Vancomycin) 1 gm IV .PHARMACY TO DOSE [facility] Stop: 11/13/20 08:00 - Exam Quality Assessment: Supplemental Oxygen, DVT Prophylaxis General: Alert, Oriented, Cooperative, Moderate Distress Lungs: Normal Respiratory Effort, Decreased Breath Sounds, Rhonchi. No: Rales, Wheezing Cardiovascular: Regular Rate, Regular Rhythm, No Murmurs GI/Abdominal Exam: Soft, Non-Tender, No Organomegaly, No Distention Extremities: Non-Tender, No Pedal Edema Sepsis Event Note - Evaluation Sepsis Screening Result: Sepsis Risk - Focused Exam Vital Signs: Vital Signs Temp Temp Temp Pulse Resp BP Pulse Ox 11/13/20 08:29 100.8 F H 11/13/20 08:28 100.8 F H 11/13/20 07:41 101.2 F H 92 143/65 H 98 11/13/20 07:17 97 11/13/20 05:30 100.8 F H 11/13/20 03:54 101.4 F H 11/13/20 03:16 102.7 F H 102 H 18 132/64 98 11/13/20 02:00 102.7 F H 11/13/20 00:49 92 L 11/13/20 00:40 103.3 F H 11/12/20 23:37 101.8 F H 11/12/20 23:30 101.8 F H 11/12/20 22:33 101.8 F H 89 18 147/67 H 93 L - Problem List Review Problem List Initiated/Reviewed/Updated: Yes - My Orders Last 24 Hours: My Active Orders 11/12/20 10:45 Sodium Chloride 0.9% [Normal Saline] 1,000 ml IV ASDIRECTED 11/12/20 16:00 Ketorolac [Toradol] 30 mg IVPUSH Q6H PRN Levofloxacin/Dextrose 5%-Water [Levaquin in D5W 750 MG/150 ML] 750 mg Premix Bag 1 bag IV Q24H 11/12/20 21:00 Enoxaparin [Lovenox] 40 mg SUBCUT BEDTIME 11/13/20 10:00 Piperacillin/Tazobactam/Dext [Zosyn in Dextrose Iso-Osmotic 3.375 GM] 3.375 gm Premix Bag 1 bag IV Q6H 11/13/20 14:00 Vancomycin 1.5 gm Sodium Chloride 0.9% [Normal Saline] 250 ml IV Q8H 11/14/20 05:00 BASIC METABOLIC PANEL,BMP [CHEM] Timed CBC WITH AUTO DIFF [HEME] Timed 11/14/20 13:30 VANCOMYCIN TROUGH [CHEM] Timed - Plan Plan:: ASSESSMENT AND PLAN BILATERAL PNEUMONIA AND SEPSIS-viral versus bacterial, although he does have significant elevation in procalcitonin more consistent with bacterial infection. He has been hemodynamically stable with persistent temperature elevations although fever curve does seem to be slowly decreasing. Because of persistent high fevers yesterday antibiotics were changed for a much broader spectrum. -Blood and sputum cultures pending -IV ceftriaxone and doxycycline discontinued -Started; vancomycin, Zosyn, and levofloxacin, pending culture results HYPOXIC RESPIRATORY COMPROMISE-secondary to bilateral pneumonia -Supplemental oxygen as needed -Albuterol nebs as needed -Continuous pulse oximetry MAINTENANCE ISSUES -DVT prophylaxis; Lovenox 40 mg subcu daily -GI prophylaxis; not indicated -Armstrong catheter; not indicated -Nutrition; regular diet -Nicotine dependence; not required CODE STATUS-FULL CODE ADMISSION STATUS-patient will be admitted to inpatient status, expect at least a 2 night hospital stay for evaluation and management of problems as outlined above. At the time of this admission I do not reasonably expected evaluation and management of this problem will require more than a 96 hour hospital stay. DISPOSITION-anticipate discharge to home after the hospital stay. PRIMARY CARE PROVIDER-Dr. Denson
[2020-11-13] MEDS: Piperacillin/Tazobactam/Dext 3.375 GM in Premix Bag 1 BAG IV SCH ×3 (11:48→21:14)
[2020-11-13] MEDS: Levofloxacin/Dextrose 5%-Water 750 MG in Premix Bag 1 BAG IV SCH (17:02)
[2020-11-13] MEDS: Acetaminophen 325 MG Tab PO PRN (18:15)
[2020-11-13] MEDS: Sodium Chloride 0.9% 1,000 ML IV SCH (18:54)
[2020-11-13] MEDS: Enoxaparin 40 MG/0.4 ML Syringe SUBCUT SCH (20:05)
[2020-11-14] MEDS: Piperacillin/Tazobactam/Dext 3.375 GM in Premix Bag 1 BAG IV SCH ×4 (03:30→21:39)
[2020-11-14] MEDS: Acetaminophen 325 MG Tab PO PRN ×3 (07:17→23:26)
[2020-11-14] MEDS: Ketorolac 30 MG/ML SDV IVPUSH PRN ×3 (07:19→23:27)
[2020-11-14] MEDS: Tamsulosin 0.4 MG Cap.ER PO SCH (09:02)
[2020-11-14] MEDS: Escitalopram 20 MG Tab PO SCH (09:02)
--- NOTE | 2020-11-14 10:28 | PCM.PN ---
- General Info Date of Service: 11/14/20 Subjective Update: No acute events overnight. He is on 4 L of supplemental oxygen. He does still feel short of breath but thinks it is maybe a little better today. Occasional cough but not much sputum. Continues to have fevers with a temp of 101 today. He is having diarrhea. No nausea or vomiting. No myalgias. Appetite is okay. Still has low white count. Hemoglobin is slightly lower again today. No obvious source of bleeding. Functional Status: Reports: Pain Controlled, Tolerating Diet - Review of Systems General: Reports: Fever, Weakness Pulmonary: Reports: Shortness of Breath, Cough - Patient Data Vitals - Most Recent: Last Vital Signs Temp 37.4 C 11/14/20 07:47 Pulse 90 11/14/20 07:00 Resp 20 11/14/20 07:00 BP 133/66 11/14/20 07:00 Pulse Ox 97 11/14/20 07:13 Weight - Most Recent: 103.873 kg I&O - Last 24 Hours: Intake & Output 11/13/20 11/14/20 11/14/20 22:59 06:59 14:59 Intake Total 1150 1678 1490 Output Total 800 1400 Balance 475 628 8458 Lab Results Last 24 Hours: Laboratory Results - last 24 hr 11/14/20 11/14/20 Range/Units 04:00 04:00 WBC 3.2 L (4.5-11.0) K/uL RBC 3.24 L (4.30-5.90) M/uL Hgb 8.7 L (12.0-15.0) g/dL Hct 29.6 L (40.0-54.0) % MCV 91 (80-98) fL MCH 27 (27-31) pg MCHC 29 L (32-36) % Plt Count 187 (150-400) K/uL Neut % (Auto) 29 L (36-66) % Lymph % (Auto) 54 H (24-44) % [place] % (Auto) 12 H (2-6) % Eos % (Auto) 2 (2-4) % Baso % (Auto) 3 H (0-1) % Sodium 140 (140-148) mmol/L Potassium 3.8 (3.6-5.2) mmol/L Chloride 106 (100-108) mmol/L Carbon Dioxide 25 (21-32) mmol/L Anion Gap 8.9 (5.0-14.0) mmol/L BUN 10 (7-18) mg/dL Creatinine 0.8 (0.8-1.3) mg/dL Est Cr Clr Drug Dosing 124.19 mL/min Estimated GFR (MDRD) > 60 (>60) Glucose 100 (74-106) mg/dL Calcium 7.7 L (8.5-10.1) mg/dL Kit Results Last 24 Hours: Microbiology 11/12/20 13:13 Gram Stain - Final Sputum - Expectorated Respiratory Culture - Preliminary NORMAL RESPIRATORY JEZ 1 DAY 11/11/20 16:30 Aerobic Blood Culture - Preliminary Blood - Arm, Left NO GROWTH AFTER 2 DAYS Anaerobic Blood Culture - Preliminary NO GROWTH AFTER 2 DAYS 11/11/20 16:20 Aerobic Blood Culture - Preliminary Blood - Arm, Left NO GROWTH AFTER 2 DAYS Anaerobic Blood Culture - Preliminary NO GROWTH AFTER 2 DAYS Med Orders - Current: Current Medications Acetaminophen (Tylenol) 650 mg PO Q4H PRN PRN Reason: Pain (Mild 1-3)/fever Last Admin: 11/14/20 07:17 Dose: 650 mg Documented by: Hydrocodone Bitart/Acetaminophen ([place] 325-5 Mg) 1 - 2 tab PO Q4H PRN PRN Reason: Pain Last Admin: 11/13/20 21:12 Dose: 1 tab Documented by: Albuterol (Proventil Neb Soln) 2.5 mg NEB Q4H PRN PRN Reason: Shortness Of Breath/wheezing Last Admin: 11/13/20 20:02 Dose: 2.5 mg Documented by: Enoxaparin Sodium (Lovenox) 40 mg SUBCUT BEDTIME [facility] Last Admin: 11/13/20 20:05 Dose: 40 mg Documented by: Escitalopram Oxalate (Lexapro) 20 mg PO DAILY [facility] Last Admin: 11/14/20 09:02 Dose: 20 mg Documented by: Sodium Chloride (Normal Saline) 1,000 mls @ 50 mls/hr IV ASDIRECTED [facility] Last Admin: 11/13/20 18:54 Dose: 50 mls/hr Documented by: Levofloxacin/Dextrose 750 mg/ (Premix) 150 mls @ 100 mls/hr IV Q24H [facility] Last Admin: 11/13/20 17:02 Dose: 100 mls/hr Documented by: Piperacillin/Tazobactam/ (Dextrose 3.375 gm/ Premix) 50 mls @ 100 mls/hr IV Q6H [facility] Last Admin: 11/14/20 10:00 Dose: 100 mls/hr Documented by: Vancomycin HCl 1.5 gm/ Sodium (Chloride) 250 mls @ 167 mls/hr IV Q8H [facility] Last Admin: 11/14/20 05:26 Dose: 167 mls/hr Documented by: Ketorolac Tromethamine (Toradol) 30 mg IVPUSH Q6H PRN PRN Reason: Pain Stop: 11/17/20 16:00 Last Admin: 11/14/20 07:19 Dose: 30 mg Documented by: Lactobacillus Rhamnosus (Culturelle) 1 cap PO BID [facility] Melatonin (Melatonin) 6 mg PO BEDTIME PRN PRN Reason: Insomnia Last Admin: 11/11/20 22:52 Dose: 6 mg Documented by: Ondansetron HCl (Zofran) 4 mg IV Q4H PRN PRN Reason: Nausea/Vomiting Last Admin: 11/12/20 13:06 Dose: 4 mg Documented by: Polyethylene Glycol (Miralax) 17 gm PO DAILY PRN PRN Reason: Constipation Sodium Chloride (Saline Flush) 10 ml FLUSH ASDIRECTED PRN PRN Reason: Keep Vein Open Tamsulosin HCl (Flomax) 0.4 mg PO DAILY [facility] Last Admin: 11/14/20 09:02 Dose: 0.4 mg Documented by: Discontinued Medications Acetaminophen (Tylenol) 650 mg PO NOW ONE Stop: 11/11/20 15:59 Last Admin: 11/11/20 16:06 Dose: 650 mg Documented by: Enoxaparin Sodium (Lovenox) 40 mg SUBCUT ONETIME ONE Stop: 11/11/20 21:16 Last Admin: 11/11/20 21:48 Dose: 40 mg Documented by: Sodium Chloride (Normal Saline) 1,000 mls @ 250 mls/hr IV .BOLUS ONE Stop: 11/11/20 18:47 Last Admin: 11/11/20 15:08 Dose: 250 mls/hr Documented by: Ceftriaxone Sodium 1 gm/ (Sodium Chloride) 50 mls @ 100 mls/hr IV Q24H [facility] Last Admin: 11/11/20 17:23 Dose: 100 mls/hr Documented by: Doxycycline Hyclate 100 mg/ (Sodium Chloride) 100 mls @ 100 mls/hr IV Q12H [facility] Last Admin: 11/12/20 05:36 Dose: 100 mls/hr Documented by: Sodium Chloride (Normal Saline) 1,000 mls @ 125 mls/hr IV ASDIRECTED [facility] Last Admin: 11/12/20 03:03 Dose: 125 mls/hr Documented by: Piperacillin Sod/Tazobactam (Sod 3.375 gm/ Sodium Chloride) 50 mls @ 100 mls/hr IV Q6H [facility] Last Admin: 11/13/20 03:34 Dose: 100 mls/hr Documented by: Vancomycin HCl 2 gm/ Sodium (Chloride) 500 mls @ 250 mls/hr IV ONETIME ONE Stop: 11/12/20 19:59 Last Admin: 11/12/20 18:40 Dose: 250 mls/hr Documented by: Vancomycin HCl 1.5 gm/ Sodium (Chloride) 250 mls @ 166.667 mls/hr IV Q12H [facility] Last Admin: 11/13/20 05:30 Dose: 166.667 mls/hr Documented by: Ibuprofen (Motrin) 600 mg PO ONETIME ONE Stop: 11/12/20 03:22 Last Admin: 11/12/20 05:25 Dose: Not Given Documented by: Ibuprofen (Motrin) 400 mg PO ONETIME ONE Stop: 11/12/20 14:16 Last Admin: 11/12/20 14:16 Dose: 400 mg Documented by: Ketorolac Tromethamine (Toradol) 30 mg IVPUSH ONETIME ONE Stop: 11/12/20 03:36 Last Admin: 11/12/20 03:45 Dose: 30 mg Documented by: Ondansetron HCl (Zofran) 4 mg IVPUSH ONETIME ONE Stop: 11/11/20 14:48 Last Admin: 11/11/20 15:07 Dose: 4 mg Documented by: Potassium Chloride (Klor-Con M20) 40 meq PO ONETIME ONE Stop: 11/12/20 17:01 Last Admin: 11/12/20 17:29 Dose: 40 meq Documented by: Potassium Chloride (Klor-Con M20) 40 meq PO ONETIME ONE Stop: 11/12/20 11:31 Last Admin: 11/12/20 11:50 Dose: Not Given Documented by: Sodium Chloride (Saline Flush) 10 ml FLUSH ASDIRECTED PRN PRN Reason: Keep Vein Open Last Admin: 11/11/20 15:09 Dose: 10 ml Documented by: Vancomycin HCl (Vancomycin) 1 gm IV .PHARMACY TO DOSE [facility] Stop: 11/13/20 08:00 - Exam Quality Assessment: Supplemental Oxygen General: Alert, Oriented, Cooperative, No Acute Distress Lungs: Clear to Auscultation, Normal Respiratory Effort. No: Wheezing Cardiovascular: Regular Rate, Regular Rhythm GI/Abdominal Exam: Soft, No Distention Extremities: No Pedal Edema. No: Increased Warmth Skin: Warm, Dry Psy/Mental Status: Alert, Normal Affect Sepsis Event Note - Evaluation Sepsis Screening Result: Sepsis Risk - Focused Exam Vital Signs: Vital Signs Temp Temp Pulse Resp BP Pulse Ox 11/14/20 07:47 37.4 C 11/14/20 07:17 38.4 C H 11/14/20 07:13 97 11/14/20 07:00 38.4 C H 90 20 133/66 97 11/14/20 03:31 37.2 C 79 18 142/71 H 95 11/14/20 01:15 92 L 11/14/20 00:50 37.6 C 11/13/20 22:56 38.3 C H 84 16 129/59 L 95 - Problem List Review Problem List Initiated/Reviewed/Updated: Yes - My Orders Last 24 Hours: My Active Orders 11/14/20 10:00 Lactobacillus Rhamnosus GG [Culturelle] 1 cap PO BID 11/14/20 10:09 Ang Chest [CT] Routine - Plan Plan:: ASSESSMENT AND PLAN BILATERAL PNEUMONIA AND SEPSIS-complicated by acute respiratory failure with hypoxia. viral versus bacterial. Clinical picture compatible with Covid but this was negative x2. Still having fevers. Still on 4 L of oxygen. Cultures negative so far. -vancomycin, Zosyn, and levofloxacin -Follow-up cultures -CT pulmonary angiogram -Labs in the morning -Supplement oxygen as needed MAINTENANCE ISSUES -DVT prophylaxis; enoxaparin -GI prophylaxis; not indicated -Armstrong catheter; not indicated -Nutrition; regular diet DISPOSITION-anticipate discharge to home after the hospital stay. Neo Gonzalez MD
[2020-11-14] MEDS: Lactobacillus Rhamnosus GG (Probiotic) Cap PO SCH ×2 (10:53→21:15)
[2020-11-14] MEDS ORDERED: Iopamidol 755 Mg/ML 100 ML Bottle IV ONE (11:21)
--- NOTE | 2020-11-14 13:15 | CT ---
Ang Chest CLINICAL HISTORY: Respiratory failure, cough TECHNIQUE: Thin section axial contiguous tomographic sections were taken through the chest after bolus IV iodinated contrast administration. Coronal and sagittal images were reconstructed. Auto dosage reduction and iterative reconstruction techniques employed. FINDINGS: There are diffuse bilateral groundglass opacifications predominating in the upper lobes. There are patchy alveolar infiltrates. Patient has moderate bilateral pleural effusions. There are a few scattered granulomata. No mediastinal mass or suspicious lymphadenopathy is identified The pulmonary outflow track and branching pulmonary arteries show no luminal filling defect or significant vessel cut off. IMPRESSION: Diffuse bilateral pulmonary infiltrates and groundglass opacities consistent with significant pneumonia and pneumonitis No evidence of pulmonary embolus [id number] bilateral pleural effusions
[2020-11-14] MEDS ORDERED: guaiFENesin/Dextromethorphan 100-10 MG/5 ML Soln 10 ML Cup PO PRN (14:00)
[2020-11-14] MEDS ORDERED: Loperamide 2 MG Cap PO PRN (14:01)
[2020-11-14] MEDS ORDERED: REMDESIVIR 200 MG in Sodium Chloride 0.9% 250 ML IV ONE (15:00)
[2020-11-14] MEDS: Dexamethasone 2 MG Tab PO SCH (15:56)
[2020-11-14] MEDS: Levofloxacin/Dextrose 5%-Water 750 MG in Premix Bag 1 BAG IV SCH (17:31)
[2020-11-14] MEDS: Enoxaparin 40 MG/0.4 ML Syringe SUBCUT SCH (21:15)
[2020-11-14] MEDS: Sodium Chloride 0.9% 1,000 ML IV SCH (23:24)
[2020-11-15] MEDS: Piperacillin/Tazobactam/Dext 3.375 GM in Premix Bag 1 BAG IV SCH ×2 (03:35→09:53)
[2020-11-15] MEDS: Lactobacillus Rhamnosus GG (Probiotic) Cap PO SCH ×2 (08:31→20:00)
[2020-11-15] MEDS: Tamsulosin 0.4 MG Cap.ER PO SCH (08:31)
[2020-11-15] MEDS: Escitalopram 20 MG Tab PO SCH (08:31)
[2020-11-15] MEDS: Albuterol 8 GM Inhaler INH PRN ×2 (12:14→17:37)
--- NOTE | 2020-11-15 14:08 | PCM.PN ---
- General Info Date of Service: 11/15/20 Subjective Update: No acute events overnight. He did have a low-grade fever but not as high as previous. He is feeling better today with less shortness of breath. No significant cough. Diarrhea is better today. Still requiring supplemental oxygen but less today than yesterday. Strength and appetite are improving. Tolerating steroids and remdesivir so far. Functional Status: Reports: Pain Controlled, Tolerating Diet - Review of Systems General: Reports: Fever - Patient Data Vitals - Most Recent: Last Vital Signs Temp 36.0 C L 11/15/20 12:13 Pulse 71 11/15/20 12:13 Resp 16 11/15/20 12:13 BP 131/80 11/15/20 12:13 Pulse Ox 98 11/15/20 12:54 Weight - Most Recent: 103.646 kg I&O - Last 24 Hours: Intake & Output 11/14/20 11/15/20 11/15/20 22:59 06:59 14:59 Intake Total 1405 1808 2110 Output Total 400 2000 Balance 1005 -192 2110 Lab Results Last 24 Hours: Laboratory Results - last 24 hr 11/14/20 11/14/20 Range/Units 13:41 15:07 D-Dimer, Quantitative 1021.28 H (0.0-500.0) ng/mL SARS-CoV-2 RNA (SUZIE) Negative (NEGATIVE) Kit Results Last 24 Hours: Microbiology 11/12/20 13:13 Gram Stain - Final Sputum - Expectorated Respiratory Culture - Final NORMAL RESPIRATORY JEZ 2 DAYS 11/11/20 16:20 Aerobic Blood Culture - Preliminary Blood - Arm, Left NO GROWTH AFTER 3 DAYS Anaerobic Blood Culture - Preliminary NO GROWTH AFTER 3 DAYS 11/11/20 16:30 Aerobic Blood Culture - Preliminary Blood - Arm, Left NO GROWTH AFTER 3 DAYS Anaerobic Blood Culture - Preliminary NO GROWTH AFTER 3 DAYS Med Orders - Current: Current Medications Acetaminophen (Tylenol) 650 mg PO Q4H PRN PRN Reason: Pain (Mild 1-3)/fever Last Admin: 11/14/20 23:26 Dose: 650 mg Documented by: Hydrocodone Bitart/Acetaminophen ([place] 325-5 Mg) 1 - 2 tab PO Q4H PRN PRN Reason: Pain Last Admin: 11/13/20 21:12 Dose: 1 tab Documented by: Albuterol (Ventolin Hfa) 0 gm INH Q4H PRN PRN Reason: shortness of breath/wheezing Last Admin: 11/15/20 12:14 Dose: 2 puff Documented by: Dexamethasone (Dexamethasone) 6 mg PO Q24H [facility] Stop: 11/22/20 15:01 Last Admin: 11/14/20 15:56 Dose: 6 mg Documented by: Enoxaparin Sodium (Lovenox) 40 mg SUBCUT BEDTIME [facility] Last Admin: 11/14/20 21:15 Dose: 40 mg Documented by: Escitalopram Oxalate (Lexapro) 20 mg PO DAILY [facility] Last Admin: 11/15/20 08:31 Dose: 20 mg Documented by: Guaifenesin/Dextromethorphan (Robitussin Dm) 10 ml PO Q4H PRN PRN Reason: Cough Levofloxacin/Dextrose 750 mg/ (Premix) 150 mls @ 100 mls/hr IV Q24H [facility] Last Admin: 11/14/20 17:31 Dose: 100 mls/hr Documented by: Remdesivir 100 mg/ Sodium (Chloride) 100 mls @ 100 mls/hr IV Q24H [facility] Stop: 11/18/20 15:59 Ketorolac Tromethamine (Toradol) 30 mg IVPUSH Q6H PRN PRN Reason: Pain Stop: 11/17/20 16:00 Last Admin: 11/14/20 23:27 Dose: 30 mg Documented by: Lactobacillus Rhamnosus (Culturelle) 1 cap PO BID [facility] Last Admin: 11/15/20 08:31 Dose: 1 cap Documented by: Loperamide HCl (Imodium) 2 mg PO Q4H PRN PRN Reason: Diarrhea Last Admin: 11/14/20 14:57 Dose: 2 mg Documented by: Melatonin (Melatonin) 6 mg PO BEDTIME PRN PRN Reason: Insomnia Last Admin: 11/11/20 22:52 Dose: 6 mg Documented by: Ondansetron HCl (Zofran) 4 mg IV Q4H PRN PRN Reason: Nausea/Vomiting Last Admin: 11/12/20 13:06 Dose: 4 mg Documented by: Polyethylene Glycol (Miralax) 17 gm PO DAILY PRN PRN Reason: Constipation Sodium Chloride (Saline Flush) 10 ml FLUSH ASDIRECTED PRN PRN Reason: Keep Vein Open Tamsulosin HCl (Flomax) 0.4 mg PO DAILY [facility] Last Admin: 11/15/20 08:31 Dose: 0.4 mg Documented by: Discontinued Medications Acetaminophen (Tylenol) 650 mg PO NOW ONE Stop: 11/11/20 15:59 Last Admin: 11/11/20 16:06 Dose: 650 mg Documented by: Albuterol (Proventil Neb Soln) 2.5 mg NEB Q4H PRN PRN Reason: Shortness Of Breath/wheezing Last Admin: 11/13/20 20:02 Dose: 2.5 mg Documented by: Enoxaparin Sodium (Lovenox) 40 mg SUBCUT ONETIME ONE Stop: 11/11/20 21:16 Last Admin: 11/11/20 21:48 Dose: 40 mg Documented by: Sodium Chloride (Normal Saline) 1,000 mls @ 250 mls/hr IV .BOLUS ONE Stop: 11/11/20 18:47 Last Admin: 11/11/20 15:08 Dose: 250 mls/hr Documented by: Ceftriaxone Sodium 1 gm/ (Sodium Chloride) 50 mls @ 100 mls/hr IV Q24H [facility] Last Admin: 11/11/20 17:23 Dose: 100 mls/hr Documented by: Doxycycline Hyclate 100 mg/ (Sodium Chloride) 100 mls @ 100 mls/hr IV Q12H [facility] Last Admin: 11/12/20 05:36 Dose: 100 mls/hr Documented by: Sodium Chloride (Normal Saline) 1,000 mls @ 125 mls/hr IV ASDIRECTED [facility] Last Admin: 11/12/20 03:03 Dose: 125 mls/hr Documented by: Sodium Chloride (Normal Saline) 1,000 mls @ 50 mls/hr IV ASDIRECTED [facility] Last Admin: 11/14/20 23:24 Dose: 50 mls/hr Documented by: Piperacillin Sod/Tazobactam (Sod 3.375 gm/ Sodium Chloride) 50 mls @ 100 mls/hr IV Q6H [facility] Last Admin: 11/13/20 03:34 Dose: 100 mls/hr Documented by: Vancomycin HCl 2 gm/ Sodium (Chloride) 500 mls @ 250 mls/hr IV ONETIME ONE Stop: 11/12/20 19:59 Last Admin: 11/12/20 18:40 Dose: 250 mls/hr Documented by: Vancomycin HCl 1.5 gm/ Sodium (Chloride) 250 mls @ 166.667 mls/hr IV Q12H [facility] Last Admin: 11/13/20 05:30 Dose: 166.667 mls/hr Documented by: Piperacillin/Tazobactam/ (Dextrose 3.375 gm/ Premix) 50 mls @ 100 mls/hr IV Q6H [facility] Last Admin: 11/15/20 09:53 Dose: 100 mls/hr Documented by: Vancomycin HCl 1.5 gm/ Sodium (Chloride) 250 mls @ 167 mls/hr IV Q8H [facility] Last Admin: 11/14/20 14:31 Dose: Not Given Documented by: Sodium Chloride (Normal Saline) 73 mls @ 4 mls/sec IV ASDIRECTED [facility] Stop: 11/14/20 11:31 Last Admin: 11/14/20 11:36 Dose: 4 mls/sec Documented by: Remdesivir 200 mg/ Sodium (Chloride) 250 mls @ 250 mls/hr IV ONETIME ONE Stop: 11/14/20 15:59 Last Admin: 11/14/20 14:54 Dose: 250 mls/hr Documented by: Ibuprofen (Motrin) 600 mg PO ONETIME ONE Stop: 11/12/20 03:22 Last Admin: 11/12/20 05:25 Dose: Not Given Documented by: Ibuprofen (Motrin) 400 mg PO ONETIME ONE Stop: 11/12/20 14:16 Last Admin: 11/12/20 14:16 Dose: 400 mg Documented by: Iopamidol (Isovue-370 (76%)) 100 ml IV . DIRECTED ONE Stop: 11/14/20 11:22 Last Admin: 11/14/20 11:37 Dose: 100 ml Documented by: Ketorolac Tromethamine (Toradol) 30 mg IVPUSH ONETIME ONE Stop: 11/12/20 03:36 Last Admin: 11/12/20 03:45 Dose: 30 mg Documented by: Ondansetron HCl (Zofran) 4 mg IVPUSH ONETIME ONE Stop: 11/11/20 14:48 Last Admin: 11/11/20 15:07 Dose: 4 mg Documented by: Potassium Chloride (Klor-Con M20) 40 meq PO ONETIME ONE Stop: 11/12/20 17:01 Last Admin: 11/12/20 17:29 Dose: 40 meq Documented by: Potassium Chloride (Klor-Con M20) 40 meq PO ONETIME ONE Stop: 11/12/20 11:31 Last Admin: 11/12/20 11:50 Dose: Not Given Documented by: Sodium Chloride (Saline Flush) 10 ml FLUSH ASDIRECTED PRN PRN Reason: Keep Vein Open Last Admin: 11/11/20 15:09 Dose: 10 ml Documented by: Vancomycin HCl (Vancomycin) 1 gm IV .PHARMACY TO DOSE [facility] Stop: 11/13/20 08:00 - Exam Quality Assessment: Supplemental Oxygen General: Alert, Oriented, Cooperative, No Acute Distress Lungs: Normal Respiratory Effort. No: Wheezing Cardiovascular: Regular Rate, Regular Rhythm GI/Abdominal Exam: Soft, No Distention Extremities: No Pedal Edema. No: Increased Warmth Skin: Warm, Dry Psy/Mental Status: Alert, Normal Affect Sepsis Event Note - Evaluation Sepsis Screening Result: No Definite Risk - Focused Exam Vital Signs: Vital Signs Temp Pulse Resp BP Pulse Ox 11/15/20 12:54 98 11/15/20 12:13 36.0 C L 71 16 131/80 98 11/15/20 08:27 36.3 C 72 16 138/76 97 11/15/20 07:29 94 L 11/15/20 05:33 97 11/15/20 03:00 36.7 C 54 L 18 136/81 98 - Problem List Review Problem List Initiated/Reviewed/Updated: Yes - My Orders Last 24 Hours: My Active Orders 11/14/20 14:00 Dextromethorphan/guaiFENesin [Robitussin DM] 10 ml PO Q4H PRN 11/14/20 14:01 Loperamide [Imodium] 2 mg PO Q4H PRN 11/14/20 15:00 dexAMETHasone 6 mg PO Q24H 11/15/20 11:47 RT Post Treatment Assessment [RC] Click to Edit Albuterol [Ventolin HFA] 0 gm INH Q4H PRN 11/15/20 12:40 Discontinue Telemetry Monitoring [Cardiac Monitoring Discontinue] [RC] Click to Edit 11/15/20 15:00 Remdesivir 100 mg Sodium Chloride 0.9% [Normal Saline] 100 ml IV Q24H 12/16/20 05:00 C-REACTIVE PROTEIN [CHEM] Timed CBC W/O DIFF,HEMOGRAM [HEME] Timed (1) COMPREHENSIVE METABOLIC PN,CMP [CHEM] Timed D-DIMER QUANTITATIVE [COAG] Timed - Plan Plan:: ASSESSMENT AND PLAN Bilateral pneumonia, suspect Covid pneumonia-complicated by acute respiratory failure with hypoxia. Labs and clinical picture fit with Covid but multiple tests have been negative. He is improving with treatment for Covid as well as antibiotics. CT scan of the chest yesterday showed bilateral groundglass opacities. No PE. -Continue levofloxacin (vancomycin and Pip/Tazo have been discontinued) -Continue steroids (day 2) -Continue remdesivir (day 2) MAINTENANCE ISSUES -DVT prophylaxis; enoxaparin -GI prophylaxis; not indicated -Armstrong catheter; not indicated -Nutrition; regular diet DISPOSITION-anticipate discharge to home after the hospital stay. Neo Gonzalez MD
[2020-11-15] MEDS: Dexamethasone 2 MG Tab PO SCH (14:45)
[2020-11-15] MEDS: REMDESIVIR 100 MG in Sodium Chloride 0.9% 100 ML IV SCH (14:45)
[2020-11-15] MEDS: Levofloxacin/Dextrose 5%-Water 750 MG in Premix Bag 1 BAG IV SCH (15:50)
[2020-11-15] MEDS: Acetaminophen/HYDROcodone 325-5 MG Tab PO PRN (19:58)
[2020-11-15] MEDS: Enoxaparin 40 MG/0.4 ML Syringe SUBCUT SCH (20:00)
[2020-11-16] MEDS: Albuterol 8 GM Inhaler INH PRN ×2 (06:28→19:59)
[2020-11-16] MEDS: Escitalopram 20 MG Tab PO SCH (08:12)
[2020-11-16] MEDS: Lactobacillus Rhamnosus GG (Probiotic) Cap PO SCH ×2 (08:12→19:59)
[2020-11-16] MEDS: Tamsulosin 0.4 MG Cap.ER PO SCH (08:12)
--- NOTE | 2020-11-16 12:21 | PCM.PN ---
- General Info Date of Service: 11/16/20 Subjective Update: No acute events overnight. Off oxygen as of this morning. Feeling better with less shortness of breath. He does have some mild left lower abdominal pain when he coughs. No fevers. D-dimer and CRP are improving. No diarrhea. Appetite and strength are good. Functional Status: Reports: Pain Controlled, Tolerating Diet - Review of Systems General: Denies: Fever Pulmonary: Reports: Shortness of Breath - Patient Data Vitals - Most Recent: Last Vital Signs Temp 36.0 C L 11/16/20 08:09 Pulse 69 11/16/20 08:09 Resp 18 11/16/20 08:09 BP 118/71 11/16/20 08:09 Pulse Ox 92 L 11/16/20 08:09 Weight - Most Recent: 103.646 kg I&O - Last 24 Hours: Intake & Output 11/15/20 11/16/20 11/16/20 22:59 06:59 14:59 Intake Total 3100 Output Total 675 Balance 2425 Lab Results Last 24 Hours: Laboratory Results - last 24 hr 11/16/20 11/16/20 11/16/20 Range/Units 06:16 06:16 06:16 WBC 4.8 (4.5-11.0) K/uL RBC 3.67 L (4.30-5.90) M/uL Hgb 9.5 L (12.0-15.0) g/dL Hct 33.1 L (40.0-54.0) % MCV 90 (80-98) fL MCH 26 L (27-31) pg MCHC 29 L (32-36) % Plt Count 240 (150-400) K/uL D-Dimer, Quantitative 512.79 H (0.0-500.0) ng/mL Sodium 143 (140-148) mmol/L Potassium 4.4 (3.6-5.2) mmol/L Chloride 106 (100-108) mmol/L Carbon Dioxide 32 (21-32) mmol/L Anion Gap 5.4 (5.0-14.0) mmol/L BUN 9 (7-18) mg/dL Creatinine 0.8 (0.8-1.3) mg/dL Est Cr Clr Drug Dosing 124.19 mL/min Estimated GFR (MDRD) > 60 (>60) Glucose 107 H (74-106) mg/dL Calcium 8.2 L (8.5-10.1) mg/dL Total Bilirubin 0.5 (0.2-1.0) mg/dL AST 38 H (15-37) U/L ALT 51 (12-78) U/L Alkaline Phosphatase 86 (46-116) U/L C-Reactive Protein 3.02 H (0.0-0.3) mg/dL Total Protein 4.9 L (6.4-8.2) g/dL Albumin 2.2 L (3.4-5.0) g/dL Globulin 2.7 (2.3-3.5) g/dL Albumin/Globulin Ratio 0.8 L (1.2-2.2) Kit Results Last 24 Hours: Microbiology 11/11/20 16:30 Aerobic Blood Culture - Preliminary Blood - Arm, Left NO GROWTH AFTER 4 DAYS Anaerobic Blood Culture - Preliminary NO GROWTH AFTER 4 DAYS 11/11/20 16:20 Aerobic Blood Culture - Preliminary Blood - Arm, Left NO GROWTH AFTER 4 DAYS Anaerobic Blood Culture - Preliminary NO GROWTH AFTER 4 DAYS 11/12/20 13:13 Gram Stain - Final Sputum - Expectorated Respiratory Culture - Final NORMAL RESPIRATORY JEZ 2 DAYS Med Orders - Current: Current Medications Acetaminophen (Tylenol) 650 mg PO Q4H PRN PRN Reason: Pain (Mild 1-3)/fever Last Admin: 11/14/20 23:26 Dose: 650 mg Documented by: Hydrocodone Bitart/Acetaminophen ([place] 325-5 Mg) 1 - 2 tab PO Q4H PRN PRN Reason: Pain Last Admin: 11/15/20 19:58 Dose: 2 tab Documented by: Albuterol (Ventolin Hfa) 0 gm INH Q4H PRN PRN Reason: shortness of breath/wheezing Last Admin: 11/16/20 06:28 Dose: 2 puff Documented by: Dexamethasone (Dexamethasone) 6 mg PO Q24H [facility] Stop: 11/22/20 15:01 Last Admin: 11/15/20 14:45 Dose: 6 mg Documented by: Enoxaparin Sodium (Lovenox) 40 mg SUBCUT BEDTIME [facility] Last Admin: 11/15/20 20:00 Dose: 40 mg Documented by: Escitalopram Oxalate (Lexapro) 20 mg PO DAILY [facility] Last Admin: 11/16/20 08:12 Dose: 20 mg Documented by: Guaifenesin/Dextromethorphan (Robitussin Dm) 10 ml PO Q4H PRN PRN Reason: Cough Remdesivir 100 mg/ Sodium (Chloride) 100 mls @ 100 mls/hr IV Q24H [facility] Stop: 11/18/20 15:59 Last Admin: 11/15/20 14:45 Dose: 100 mls/hr Documented by: Ketorolac Tromethamine (Toradol) 30 mg IVPUSH Q6H PRN PRN Reason: Pain Stop: 11/17/20 16:00 Last Admin: 11/14/20 23:27 Dose: 30 mg Documented by: Lactobacillus Rhamnosus (Culturelle) 1 cap PO BID [facility] Last Admin: 11/16/20 08:12 Dose: 1 cap Documented by: Loperamide HCl (Imodium) 2 mg PO Q4H PRN PRN Reason: Diarrhea Last Admin: 11/14/20 14:57 Dose: 2 mg Documented by: Melatonin (Melatonin) 6 mg PO BEDTIME PRN PRN Reason: Insomnia Last Admin: 11/11/20 22:52 Dose: 6 mg Documented by: Ondansetron HCl (Zofran) 4 mg IV Q4H PRN PRN Reason: Nausea/Vomiting Last Admin: 11/12/20 13:06 Dose: 4 mg Documented by: Polyethylene Glycol (Miralax) 17 gm PO DAILY PRN PRN Reason: Constipation Sodium Chloride (Saline Flush) 10 ml FLUSH ASDIRECTED PRN PRN Reason: Keep Vein Open Tamsulosin HCl (Flomax) 0.4 mg PO DAILY [facility] Last Admin: 11/16/20 08:12 Dose: 0.4 mg Documented by: Discontinued Medications Acetaminophen (Tylenol) 650 mg PO NOW ONE Stop: 11/11/20 15:59 Last Admin: 11/11/20 16:06 Dose: 650 mg Documented by: Albuterol (Proventil Neb Soln) 2.5 mg NEB Q4H PRN PRN Reason: Shortness Of Breath/wheezing Last Admin: 11/13/20 20:02 Dose: 2.5 mg Documented by: Enoxaparin Sodium (Lovenox) 40 mg SUBCUT ONETIME ONE Stop: 11/11/20 21:16 Last Admin: 11/11/20 21:48 Dose: 40 mg Documented by: Sodium Chloride (Normal Saline) 1,000 mls @ 250 mls/hr IV .BOLUS ONE Stop: 11/11/20 18:47 Last Admin: 11/11/20 15:08 Dose: 250 mls/hr Documented by: Ceftriaxone Sodium 1 gm/ (Sodium Chloride) 50 mls @ 100 mls/hr IV Q24H [facility] Last Admin: 11/11/20 17:23 Dose: 100 mls/hr Documented by: Doxycycline Hyclate 100 mg/ (Sodium Chloride) 100 mls @ 100 mls/hr IV Q12H [facility] Last Admin: 11/12/20 05:36 Dose: 100 mls/hr Documented by: Sodium Chloride (Normal Saline) 1,000 mls @ 125 mls/hr IV ASDIRECTED [facility] Last Admin: 11/12/20 03:03 Dose: 125 mls/hr Documented by: Sodium Chloride (Normal Saline) 1,000 mls @ 50 mls/hr IV ASDIRECTED [facility] Last Admin: 11/14/20 23:24 Dose: 50 mls/hr Documented by: Piperacillin Sod/Tazobactam (Sod 3.375 gm/ Sodium Chloride) 50 mls @ 100 mls/hr IV Q6H [facility] Last Admin: 11/13/20 03:34 Dose: 100 mls/hr Documented by: Levofloxacin/Dextrose 750 mg/ (Premix) 150 mls @ 100 mls/hr IV Q24H [facility] Last Admin: 11/15/20 15:50 Dose: 100 mls/hr Documented by: Vancomycin HCl 2 gm/ Sodium (Chloride) 500 mls @ 250 mls/hr IV ONETIME ONE Stop: 11/12/20 19:59 Last Admin: 11/12/20 18:40 Dose: 250 mls/hr Documented by: Vancomycin HCl 1.5 gm/ Sodium (Chloride) 250 mls @ 166.667 mls/hr IV Q12H [facility] Last Admin: 11/13/20 05:30 Dose: 166.667 mls/hr Documented by: Piperacillin/Tazobactam/ (Dextrose 3.375 gm/ Premix) 50 mls @ 100 mls/hr IV Q6H [facility] Last Admin: 11/15/20 09:53 Dose: 100 mls/hr Documented by: Vancomycin HCl 1.5 gm/ Sodium (Chloride) 250 mls @ 167 mls/hr IV Q8H [facility] Last Admin: 11/14/20 14:31 Dose: Not Given Documented by: Sodium Chloride (Normal Saline) 73 mls @ 4 mls/sec IV ASDIRECTED [facility] Stop: 11/14/20 11:31 Last Admin: 11/14/20 11:36 Dose: 4 mls/sec Documented by: Remdesivir 200 mg/ Sodium (Chloride) 250 mls @ 250 mls/hr IV ONETIME ONE Stop: 11/14/20 15:59 Last Admin: 11/14/20 14:54 Dose: 250 mls/hr Documented by: Ibuprofen (Motrin) 600 mg PO ONETIME ONE Stop: 11/12/20 03:22 Last Admin: 11/12/20 05:25 Dose: Not Given Documented by: Ibuprofen (Motrin) 400 mg PO ONETIME ONE Stop: 11/12/20 14:16 Last Admin: 11/12/20 14:16 Dose: 400 mg Documented by: Iopamidol (Isovue-370 (76%)) 100 ml IV . DIRECTED ONE Stop: 11/14/20 11:22 Last Admin: 11/14/20 11:37 Dose: 100 ml Documented by: Ketorolac Tromethamine (Toradol) 30 mg IVPUSH ONETIME ONE Stop: 11/12/20 03:36 Last Admin: 11/12/20 03:45 Dose: 30 mg Documented by: Ondansetron HCl (Zofran) 4 mg IVPUSH ONETIME ONE Stop: 11/11/20 14:48 Last Admin: 11/11/20 15:07 Dose: 4 mg Documented by: Potassium Chloride (Klor-Con M20) 40 meq PO ONETIME ONE Stop: 11/12/20 17:01 Last Admin: 11/12/20 17:29 Dose: 40 meq Documented by: Potassium Chloride (Klor-Con M20) 40 meq PO ONETIME ONE Stop: 11/12/20 11:31 Last Admin: 11/12/20 11:50 Dose: Not Given Documented by: Sodium Chloride (Saline Flush) 10 ml FLUSH ASDIRECTED PRN PRN Reason: Keep Vein Open Last Admin: 11/11/20 15:09 Dose: 10 ml Documented by: Vancomycin HCl (Vancomycin) 1 gm IV .PHARMACY TO DOSE [facility] Stop: 11/13/20 08:00 - Exam General: Alert, Oriented, Cooperative, No Acute Distress Lungs: Normal Respiratory Effort. No: Wheezing Cardiovascular: Regular Rate, Regular Rhythm GI/Abdominal Exam: Soft, Non-Tender, No Distention Extremities: No Pedal Edema Psy/Mental Status: Alert, Normal Affect Sepsis Event Note - Evaluation Sepsis Screening Result: No Definite Risk - Focused Exam Vital Signs: Vital Signs Temp Pulse Resp BP Pulse Ox 11/16/20 08:09 36.0 C L 69 18 118/71 92 L 11/16/20 02:14 35.9 C L 51 L 18 137/80 97 - Problem List Review Problem List Initiated/Reviewed/Updated: Yes - My Orders Last 24 Hours: My Active Orders 11/15/20 11:47 RT Post Treatment Assessment [RC] Click to Edit Albuterol [Ventolin HFA] 0 gm INH Q4H PRN 11/15/20 12:40 Discontinue Telemetry Monitoring [Cardiac Monitoring Discontinue] [RC] Click to Edit 11/15/20 15:00 Remdesivir 100 mg Sodium Chloride 0.9% [Normal Saline] 100 ml IV Q24H - Plan Plan:: ASSESSMENT AND PLAN Bilateral pneumonia, suspect Covid pneumonia-complicated by acute respiratory failure with hypoxia. He is improving with treatment for Covid as well as antibiotics. Off supplemental oxygen as of this morning. -Discontinue antibiotics -Continue steroids (day 3) -Continue remdesivir (day 3) MAINTENANCE ISSUES -DVT prophylaxis; enoxaparin -GI prophylaxis; not indicated -Armstrong catheter; not indicated -Nutrition; regular diet DISPOSITION-anticipate discharge to home after the hospital stay, possibly tomorrow if stable overnight Neo Gonzalez MD
[2020-11-16] MEDS: Acetaminophen/HYDROcodone 325-5 MG Tab PO PRN (12:56)
[2020-11-16] MEDS: REMDESIVIR 100 MG in Sodium Chloride 0.9% 100 ML IV SCH (14:17)
[2020-11-16] MEDS: Dexamethasone 2 MG Tab PO SCH (15:53)
[2020-11-16] MEDS: Enoxaparin 40 MG/0.4 ML Syringe SUBCUT SCH (19:59)
[2020-11-16] MEDS ORDERED: diphenhydrAMINE 25 MG Cap PO ONE (22:13)
[2020-11-17] MEDS: Escitalopram 20 MG Tab PO SCH (10:02)
[2020-11-17] MEDS: Lactobacillus Rhamnosus GG (Probiotic) Cap PO SCH (10:02)
[2020-11-17] MEDS: Tamsulosin 0.4 MG Cap.ER PO SCH (10:02)
[2020-11-17] MEDS: Acetaminophen/HYDROcodone 325-5 MG Tab PO PRN (10:03)
--- NOTE | 2020-11-17 10:27 | PCM.DCSUM1 ---
Discharge Summary - Hospital Course Brief History: 45-year-old male with history of gastric bypass surgery who presented to the walk-in clinic with progressive weakness, fever, shortness of breath despite outpatient antibiotics. He was sent to the emergency room for further evaluation and admitted for management of presumed pneumonia. Diagnosis: Stroke: No - Discharge Data Discharge Date: 11/17/20 Discharge Disposition: Home, Self-Care 01 Condition: Good - Referral to Home Health Primary Care Physician: Ne Denson MD - Discharge Diagnosis/Problem(s) (1) Pneumonia due to COVID-19 virus SNOMED Code(s): [id number] ICD Code: U07.1 - COVID-19; J12.89 - OTHER VIRAL PNEUMONIA Status: Suspected (2) Acute respiratory failure due to COVID-19 SNOMED Code(s): 795723632 ICD Code: U07.1 - COVID-19; J96.00 - ACUTE RESPIRATORY FAILURE, UNSP W HYPOXIA OR HYPERCAPNIA Status: Acute - Patient Summary/Data Hospital Course: Manish presented to the emergency room with progressive weakness, cough and shortness of breath. He had been seen in the walk-in clinic on a couple of occasions and was treated for a sinus infection and possible pneumonia. Despite outpatient antibiotics he continued to get worse with increasing shortness of breath and weakness. He had persistent fevers as well. Work-up in the emergen cy room revealed a normal white blood cell count and fairly unremarkable labs. His procalcitonin was elevated at more than 2. Initial suspicion was for bacterial pneumonia and he was admitted to the hospital and started on broad- spectrum antibiotics. Over the next 3 days we did not see much in the way of improvement. He continued to require 4 L of supplemental oxygen. He was having fairly regular and fairly high fevers. He continued to feel short of breath. He had significant diarrhea as well as nausea. He was weak and had no appetite. His white count had trended down and was low. Platelets were trending down. We did repeat a Covid test which again was negative. My clinical suspicion for Covid was high. His D-dimer was elevated at more than 1000 and his CRP was greater than 9. He had not been getting better with antibiotics. We performed a CT scan of the chest which showed bilateral groundglass opacities consistent with suspected Covid infection. We elected to start to taper antibiotics and started him on dexamethasone and remdesivir. Over the next 48 hours we saw a rapid improvement. His fever curve resolved. His shortness of breath improved significantly and we were able to wean him off supplemental oxygen when he had previously been requiring 4 L of supplemental oxygen. His diarrhea resolved. His appetite and strength improved fairly quickly. At the time of discharge she is off supplemental oxygen. He is up and moving around and feels well other than a little bit weak. He has no diarrhea or nausea. We have tapered his antibiotics down and discontinued them. He has continued to get better even without antibiotics. He has completed 3 days of remdesivir. He has completed 3 days of steroids and I plan to continue for 4 more days. I strongly suspect that this was COVID-19 pneumonia with acute respiratory failure and hypoxia though his testing was negative. He had known exposures and his symptoms and laboratory studies as well as a CT scan of the chest fit quite well with Covid infection. He will be following up in about 2 weeks or sooner if things do not continue to get better. - Patient Instructions Diet: Regular Diet as Tolerated Activity: As Tolerated Showering/Bathing: May Shower Notify Provider of: Fever Other/Special Instructions: 1. You were in the hospital for management of bilateral pneumonia that I suspect was caused by COVID-19 infection. Your symptoms, laboratory studies and CT scan of the chest were all very suggestive of Covid infection but your Covid tests were negative. I do recommend additional steroid therapy after hospital discharge. Please take dexamethasone 6 mg once daily at about 4 PM for 4 doses. Your first dose outside of the hospital will be due this afternoon. Your number of days from symptom onset as well as your improvement suggest that you do not need to isolate or quarantine any further. You may resume your usual activities as tolerated. 2. Continue your usual home medications as previously prescribed. 3. Follow up as scheduled with your primary care doctor at the end of the month. - Discharge Plan *PRESCRIPTION DRUG MONITORING PROGRAM REVIEWED*: Not Applicable *COPY OF PRESCRIPTION DRUG MONITORING REPORT IN PATIENT EARLE: Not Applicable Prescriptions/Med Rec: dexAMETHasone [Dexamethasone] 6 mg PO Q24H #12 tablet Home Medications: Home Meds Escitalopram [Lexapro] 20 mg PO DAILY 01/31/15 [History] Ferrous Sulfate 325 mg PO BID 10/27/17 [History] Acetaminophen [Tylenol] 650 mg PO Q4H PRN tablet 12/29/18 [Rx] Tamsulosin HCl 0.4 mg PO DAILY 11/11/20 [History] Vitamin A 10,000 unit PO DAILY 11/11/20 [History] dexAMETHasone [Dexamethasone] 6 mg PO Q24H #12 tablet 11/17/20 [Rx] Oxygen Therapy Mode: Room Air Patient Handouts: COVID-19, Dexamethasone tablets Referrals: Ne Denson MD [Primary Care Provider] - 12/01/20 11:30 am (f/u as scheduled on 12/01) - Discharge Summary/Plan Comment DC Time >30 min.: No - Patient Data Vitals - Most Recent: Last Vital Signs Temp 36.9 C 11/17/20 10:00 Pulse 70 11/17/20 10:00 Resp 16 11/17/20 10:00 BP 131/82 11/17/20 10:00 Pulse Ox 94 L 11/17/20 10:00 Weight - Most Recent: 103.646 kg I&O - Last 24 hours: Intake & Output 11/16/20 11/17/20 11/17/20 22:59 06:59 14:59 Intake Total 1000 1000 800 Balance 1000 1000 800 FLASH Results - Last 24 hrs: Microbiology 11/11/20 16:20 Aerobic Blood Culture - Final Blood - Arm, Left NO GROWTH AFTER 5 DAYS Anaerobic Blood Culture - Final NO GROWTH AFTER 5 DAYS 11/11/20 16:30 Aerobic Blood Culture - Final Blood - Arm, Left NO GROWTH AFTER 5 DAYS Anaerobic Blood Culture - Final NO GROWTH AFTER 5 DAYS Med Orders - Current: Current Medications Acetaminophen (Tylenol) 650 mg PO Q4H PRN PRN Reason: Pain (Mild 1-3)/fever Last Admin: 11/14/20 23:26 Dose: 650 mg Documented by: Hydrocodone Bitart/Acetaminophen (Floyd 325-5 Mg) 1 - 2 tab PO Q4H PRN PRN Reason: Pain Last Admin: 11/17/20 10:03 Dose: 2 tab Documented by: Albuterol (Ventolin Hfa) 0 gm INH Q4H PRN PRN Reason: shortness of breath/wheezing Last Admin: 11/16/20 19:59 Dose: 2 puff Documented by: Dexamethasone (Dexamethasone) 6 mg PO Q24H KAYLEN Stop: 11/22/20 15:01 Last Admin: 11/16/20 15:53 Dose: 6 mg Documented by: Enoxaparin Sodium (Lovenox) 40 mg SUBCUT BEDTIME [facility] Last Admin: 11/16/20 19:59 Dose: 40 mg Documented by: Escitalopram Oxalate (Lexapro) 20 mg PO DAILY [facility] Last Admin: 11/17/20 10:02 Dose: 20 mg Documented by: Guaifenesin/Dextromethorphan (Robitussin Dm) 10 ml PO Q4H PRN PRN Reason: Cough Remdesivir 100 mg/ Sodium (Chloride) 100 mls @ 100 mls/hr IV Q24H [facility] Stop: 11/18/20 15:59 Last Admin: 11/16/20 14:17 Dose: 100 mls/hr Documented by: Ketorolac Tromethamine (Toradol) 30 mg IVPUSH Q6H PRN PRN Reason: Pain Stop: 11/17/20 16:00 Last Admin: 11/14/20 23:27 Dose: 30 mg Documented by: Lactobacillus Rhamnosus (Culturelle) 1 cap PO BID [facility] Last Admin: 11/17/20 10:02 Dose: 1 cap Documented by: Loperamide HCl (Imodium) 2 mg PO Q4H PRN PRN Reason: Diarrhea Last Admin: 11/14/20 14:57 Dose: 2 mg Documented by: Melatonin (Melatonin) 6 mg PO BEDTIME PRN PRN Reason: Insomnia Last Admin: 11/11/20 22:52 Dose: 6 mg Documented by: Ondansetron HCl (Zofran) 4 mg IV Q4H PRN PRN Reason: Nausea/Vomiting Last Admin: 11/12/20 13:06 Dose: 4 mg Documented by: Polyethylene Glycol (Miralax) 17 gm PO DAILY PRN PRN Reason: Constipation Sodium Chloride (Saline Flush) 10 ml FLUSH ASDIRECTED PRN PRN Reason: Keep Vein Open Tamsulosin HCl (Flomax) 0.4 mg PO DAILY [facility] Last Admin: 11/17/20 10:02 Dose: 0.4 mg Documented by: Discontinued Medications Acetaminophen (Tylenol) 650 mg PO NOW ONE Stop: 11/11/20 15:59 Last Admin: 11/11/20 16:06 Dose: 650 mg Documented by: Albuterol (Proventil Neb Soln) 2.5 mg NEB Q4H PRN PRN Reason: Shortness Of Breath/wheezing Last Admin: 11/13/20 20:02 Dose: 2.5 mg Documented by: Diphenhydramine HCl (Benadryl) 25 mg PO ONETIME ONE Stop: 11/16/20 22:14 Last Admin: 11/16/20 22:38 Dose: 25 mg Documented by: Enoxaparin Sodium (Lovenox) 40 mg SUBCUT ONETIME ONE Stop: 11/11/20 21:16 Last Admin: 11/11/20 21:48 Dose: 40 mg Documented by: Sodium Chloride (Normal Saline) 1,000 mls @ 250 mls/hr IV .BOLUS ONE Stop: 11/11/20 18:47 Last Admin: 11/11/20 15:08 Dose: 250 mls/hr Documented by: Ceftriaxone Sodium 1 gm/ (Sodium Chloride) 50 mls @ 100 mls/hr IV Q24H [facility] Last Admin: 11/11/20 17:23 Dose: 100 mls/hr Documented by: Doxycycline Hyclate 100 mg/ (Sodium Chloride) 100 mls @ 100 mls/hr IV Q12H [facility] Last Admin: 11/12/20 05:36 Dose: 100 mls/hr Documented by: Sodium Chloride (Normal Saline) 1,000 mls @ 125 mls/hr IV ASDIRECTED [facility] Last Admin: 11/12/20 03:03 Dose: 125 mls/hr Documented by: Sodium Chloride (Normal Saline) 1,000 mls @ 50 mls/hr IV ASDIRECTED [facility] Last Admin: 11/14/20 23:24 Dose: 50 mls/hr Documented by: Piperacillin Sod/Tazobactam (Sod 3.375 gm/ Sodium Chloride) 50 mls @ 100 mls/hr IV Q6H [facility] Last Admin: 11/13/20 03:34 Dose: 100 mls/hr Documented by: Levofloxacin/Dextrose 750 mg/ (Premix) 150 mls @ 100 mls/hr IV Q24H [facility] Last Admin: 11/15/20 15:50 Dose: 100 mls/hr Documented by: Vancomycin HCl 2 gm/ Sodium (Chloride) 500 mls @ 250 mls/hr IV ONETIME ONE Stop: 11/12/20 19:59 Last Admin: 11/12/20 18:40 Dose: 250 mls/hr Documented by: Vancomycin HCl 1.5 gm/ Sodium (Chloride) 250 mls @ 166.667 mls/hr IV Q12H [facility] Last Admin: 11/13/20 05:30 Dose: 166.667 mls/hr Documented by: Piperacillin/Tazobactam/ (Dextrose 3.375 gm/ Premix) 50 mls @ 100 mls/hr IV Q6H [facility] Last Admin: 11/15/20 09:53 Dose: 100 mls/hr Documented by: Vancomycin HCl 1.5 gm/ Sodium (Chloride) 250 mls @ 167 mls/hr IV Q8H [facility] Last Admin: 11/14/20 14:31 Dose: Not Given Documented by: Sodium Chloride (Normal Saline) 73 mls @ 4 mls/sec IV ASDIRECTED [facility] Stop: 11/14/20 11:31 Last Admin: 11/14/20 11:36 Dose: 4 mls/sec Documented by: Remdesivir 200 mg/ Sodium (Chloride) 250 mls @ 250 mls/hr IV ONETIME ONE Stop: 11/14/20 15:59 Last Admin: 11/14/20 14:54 Dose: 250 mls/hr Documented by: Ibuprofen (Motrin) 600 mg PO ONETIME ONE Stop: 11/12/20 03:22 Last Admin: 11/12/20 05:25 Dose: Not Given Documented by: Ibuprofen (Motrin) 400 mg PO ONETIME ONE Stop: 11/12/20 14:16 Last Admin: 11/12/20 14:16 Dose: 400 mg Documented by: Iopamidol (Isovue-370 (76%)) 100 ml IV . DIRECTED ONE Stop: 11/14/20 11:22 Last Admin: 11/14/20 11:37 Dose: 100 ml Documented by: Ketorolac Tromethamine (Toradol) 30 mg IVPUSH ONETIME ONE Stop: 11/12/20 03:36 Last Admin: 11/12/20 03:45 Dose: 30 mg Documented by: Ondansetron HCl (Zofran) 4 mg IVPUSH ONETIME ONE Stop: 11/11/20 14:48 Last Admin: 11/11/20 15:07 Dose: 4 mg Documented by: Potassium Chloride (Klor-Con M20) 40 meq PO ONETIME ONE Stop: 11/12/20 17:01 Last Admin: 11/12/20 17:29 Dose: 40 meq Documented by: Potassium Chloride (Klor-Con M20) 40 meq PO ONETIME ONE Stop: 11/12/20 11:31 Last Admin: 11/12/20 11:50 Dose: Not Given Documented by: Sodium Chloride (Saline Flush) 10 ml FLUSH ASDIRECTED PRN PRN Reason: Keep Vein Open Last Admin: 11/11/20 15:09 Dose: 10 ml Documented by: Vancomycin HCl (Vancomycin) 1 gm IV .PHARMACY TO DOSE KAYLEN Stop: 11/13/20 08:00
== END 2020-11-17 11:45 | disposition home or self-care (01) | DRG 871 ==
LOC: JP.ED 13:01 → JP.MS 16:56
PROVIDERS: ADMIT Hospitalist; ATTEND Internal Medicine
PROC: 8E0ZXY6 Isolation (ICD-10-PCS; principal; 2020-11-14)
PROC: XW033E5 Introduction of Remdesivir Anti-infective into Peripheral Vein, Percutaneous Approach, New Technology Group 5 (ICD-10-PCS; 2020-11-14)
DX: A41.9 Sepsis, unspecified organism (principal); U07.1 COVID-19; J12.89 Other viral pneumonia; J96.01 Acute respiratory failure with hypoxia; J15.9 Unspecified bacterial pneumonia; H54.7 Unspecified visual loss; E78.00 Pure hypercholesterolemia, unspecified; I10 Essential (primary) hypertension; G47.30 Sleep apnea, unspecified; R33.9 Retention of urine, unspecified; F41.9 Anxiety disorder, unspecified; F32.9 Major depressive disorder, single episode, unspecified; E66.9 Obesity, unspecified; D64.9 Anemia, unspecified; Z96.649 Presence of unspecified artificial hip joint; Z99.81 Dependence on supplemental oxygen; Z88.2 Allergy status to sulfonamides; Z88.8 Allergy status to other drugs, medicaments and biological substances; Z79.899 Other long term (current) drug therapy
CPT/HCPCS: 36415; 36600; 71275; 71275-26; 80048; 80053; 80202; 82803; 83735; 84145; 85025; 85027; 85379; 86140; 87040; 87070; 87205; 87804; 87804-59; 94640; 94668; 94762; 96374; 99222-AI; 99231; 99232; 99238; 99284; 99285-25; A9270-GY; J0696; J1650; J1885; J1956; J2405; J2543; J3370; J3490; J7030; J7040; J7050; J8540; Q9967; U0002